=== PATIENT | male | born 1945 | race Caucasian/White ===

== ENCOUNTER 2016-10-22 18:57 | Emergency (ER) | payer OTHER ==
--- NOTE | 2016-10-22 19:23 | EDM.PDOC ---
ED HPI GENERAL MEDICAL PROBLEM - General Chief Complaint: Chest Pain Stated Complaint: PT HAS HIGH BLOOD PRESSURE AND CHEST PAINS Time Seen by Provider: 10/22/16 19:20 - History of Present Illness INITIAL COMMENTS - FREE TEXT/NARRATIVE: HISTORY AND PHYSICAL: History of present illness: Patient 70-year-old white male presents with a concern of blood pressure check he is a and called the [place] with regard to blood pressure that was low 100 systolic with diastolic of 50-60. He states he occasionally has chest pain he is not worried about that at this time and all he wants his blood pressure rechecked. Review of systems: As per history of present illness and below otherwise all systems reviewed and negative. Past medical history: As per history of present illness and as reviewed below otherwise noncontributory. Surgical history: As per history of present illness and as reviewed below otherwise noncontributory. Social history: No reported history of drug or alcohol abuse. Family history: As per history of present illness and as reviewed below otherwise noncontributory. Physical exam: HEENT: Atraumatic, normocephalic, pupils reactive, negative for conjunctival pallor or scleral icterus, mucous membranes moist, throat clear, neck supple, nontender, trachea midline. Lungs: Clear to auscultation, breath sounds equal bilaterally, chest nontender. Heart: S1S2, regular, negative for clicks, rubs, or JVD. Abdomen: Soft, nondistended, nontender. Negative for masses or hepatosplenomegaly. Negative for costovertebral tenderness. Pelvis: Stable nontender. Genitourinary: Deferred. Rectal: Deferred. Extremities: Atraumatic, negative for cords or calf pain. Neurovascular unremarkable. Neuro: Awake, alert, oriented. Cranial nerves II through XII unremarkable. Cerebellum unremarkable. Motor and sensory unremarkable throughout. Exam nonfocal. Diagnostics: Deferred by patient Therapeutics: None Impression: #1 medical screening exam Definitive disposition and diagnosis as appropriate pending reevaluation and review of above. chest Pain Score (Numeric/FACES): 3 - Related Data Allergies Allergy/AdvReac Type Severity Reaction Status Date / Time No Known Allergies Allergy Verified 08/02/14 17:46 Home Meds: Home Meds High Blood Pressure 10/22/16 [History] High Cholesterol 10/22/16 [History] Lower Heart Rate 10/22/16 [History] Past Medical History HEENT History: Reports: None Cardiovascular History: Reports: High Cholesterol, Hypertension, [place], Stents Respiratory History: Reports: Other (See Below) Other Respiratory History: polyp in lung Gastrointestinal History: Reports: None Genitourinary History: Reports: None Musculoskeletal History: Reports: Back Pain, Chronic Psychiatric History: Reports: None Endocrine/Metabolic History: Reports: None - Infectious Disease History Infectious Disease History: Reports: Chicken Pox, Measles, Mumps - Past Surgical History Male Surgical History: Reports: None Neurological Surgical History: Reports: Other (See Below) Other Neurological Surgeries/Procedures: 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 ED EXAM, GENERAL - Physical Exam Exam: See Below (See dictation) Course - Vital Signs Last Recorded V/S: Last Vital Signs Temp 36.8 C 10/22/16 19:02 Pulse 83 10/22/16 19:02 Resp 18 10/22/16 19:02 BP 154/64 H 10/22/16 19:02 Pulse Ox 96 10/22/16 19:02 Departure - Departure Time of Disposition: 19:22 Disposition: Home, Self-Care 01 Condition: Good Clinical Impression: Encounter for medical screening examination - Discharge Information Forms: ED Department Discharge Additional Instructions: The following information is given to patients seen in the emergency department who are being discharged to home. This information is to outline your options for follow-up care. We provide all patients seen in our emergency department with a follow-up referral. The need for follow-up, as well as the timing and circumstances, are variable depending upon the specifics of your emergency department visit. If you don't have a primary care physician on staff, we will provide you with a referral. We always advise you to contact your personal physician following an emergency department visit to inform them of the circumstance of the visit and for follow-up with them and/or the need for any referrals to a consulting specialist. The emergency department will also refer you to a specialist when appropriate. This referral assures that you have the opportunity for followup care with a specialist. All of these measure are taken in an effort to provide you with optimal care, which includes your followup. Under all circumstances we always encourage you to contact your private physician who remains a resource for coordinating your care. When calling for followup care, please make the office aware that this follow-up is from your recent emergency room visit. If for any reason you are refused follow-up, please contact the [facility] emergency department at and asked to speak to the emergency department charge nurse. Follow-up primary medical doctor 1-2 days return as needed as discussed
[2016-10-23 03:44] VITALS: BP 118/56
== END 2016-10-22 19:38 | disposition home or self-care (01) ==
LOC: MW.ED 18:57
DX: Z00.00 Encounter for general adult medical examination without abnormal findings (principal); I10 Essential (primary) hypertension; E78.00 Pure hypercholesterolemia, unspecified; I25.2 Old myocardial infarction; F17.210 Nicotine dependence, cigarettes, uncomplicated; Z95.5 Presence of coronary angioplasty implant and graft; Z98.890 Other specified postprocedural states
CPT/HCPCS: 93005; 99282; 99284-25

== ENCOUNTER 2017-10-06 13:46 | Emergency (ER) | payer OTHER ==
[~2017-10-06 13:46] MED LIST: Nitroglycerin 0.4 MG Tab.SL SL ONE
[2017-10-06] MEDS ORDERED: Sodium Chloride 0.9% 1,000 ML IV ONE (13:54)
--- NOTE | 2017-10-06 13:55 | EDM.PDOC ---
ED HPI GENERAL MEDICAL PROBLEM - General Stated Complaint: AMB Time Seen by Provider: 10/06/17 13:46 Source of Information: Reports: Patient, EMS History Limitations: Reports: No Limitations - History of Present Illness INITIAL COMMENTS - FREE TEXT/NARRATIVE: HISTORY AND PHYSICAL: History of present illness: [Comes to the emergency room via EMS from OR complaining of chest pain. Symptoms started earlier this morning while he was mowing the lawn, around 11 AM. Describes as a constant pressure in the middle of his chest and radiates into his left neck. Since the onset of pain, He took a bath and took a nap prior to presenting at the OR clinic for evaluation of his pain. He was then referred to the emergency room for evaluation. Denies shortness of breath or difficulty breathing. Took one baby aspirin at home, and received 324mg po on the way to ER, as well as 1 spray of nitro. His pain is completely resolved while he is in the metered emergency room. No recent illness or infection. No fever or chills, earaches runny nose and sore throat. No abdominal pain nausea or vomiting. No Swelling to his feet or lower legs. Denies numbness and tingling. No muscle aches or joint pain. History of CAD w/ stents x3 in 2009 in [place]. Smokes 1-1-1/2 packs of cigarettes per day. ] Review of systems: As per history of present illness and below otherwise all systems reviewed and negative. Past medical history: As per history of present illness and as reviewed below otherwise noncontributory. Surgical history: As per history of present illness and as reviewed below otherwise noncontributory. Social history: No reported history of drug or alcohol abuse. Family history: As per history of present illness and as reviewed below otherwise noncontributory. Physical exam: General: WDWN, frail elderly male in NAD. Speaks in full sentences w/o difficulty. HEENT: Atraumatic, normocephalic. Oral mucous membranes are pink and moist. Neck is supple, no lymphadenopathy. Lungs: Clear to auscultation, breath sounds equal bilaterally. Heart: S1S2, regular, negative for clicks, rubs, or JVD. Abdomen: Sounds are normoactive throughout. Soft, nondistended, nontender. Negative for masses, guarding or rebound. Pelvis: Stable nontender. Genitourinary: Deferred. Rectal: Deferred. Extremities: Atraumatic, negative for cords or calf pain. Neurovascular unremarkable. Neuro: Awake, alert, oriented. Motor and sensory unremarkable throughout. Exam nonfocal. Diagnostics: [CBC, CMP, PT/INR, troponin, EKG, chest x-ray, UA] Therapeutics: [1 L at 500 ML's, 1 g Nitropaste, Lovenox 60 mg subcutaneous] Impression: [NSTEMI ACS unstable angina] Plan: [EKG shows inverted T waves, Troponin 0.170, CBC is unremarkable. Normal kidney and liver function. Otherwise, normal CMP. This is discussed with Dr. He at [facility]. He agrees to accept patient in transfer. ALS ground is arranged. Is given Lovenox and 1 inch of Nitropaste prior to transfer. The patient's in agreement with today's treatment plan and transfer. All of his questions are answered and concerns are addressed.] Definitive disposition and diagnosis as appropriate pending reevaluation and review of above. Bilateral Chest Pain Score (Numeric/FACES): 0 - Related Data Allergies Allergy/AdvReac Type Severity Reaction Status Date / Time No Known Allergies Allergy Verified 10/06/17 14:00 Home Meds: Home Meds High Blood Pressure 10/22/16 [History] High Cholesterol 10/22/16 [History] Lower Heart Rate 10/22/16 [History] Past Medical History HEENT History: Reports: None Cardiovascular History: Reports: High Cholesterol, Hypertension, [place], Stents Respiratory History: Reports: Other (See Below) Other Respiratory History: polyp in lung Gastrointestinal History: Reports: None Genitourinary History: Reports: None Musculoskeletal History: Reports: Back Pain, Chronic Psychiatric History: Reports: None Endocrine/Metabolic History: Reports: None - Infectious Disease History Infectious Disease History: Reports: Chicken Pox, Measles, Mumps - Past Surgical History Male Surgical History: Reports: None Neurological Surgical History: Reports: Other (See Below) Other Neurological Surgeries/Procedures: 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 ED EXAM, GENERAL - Physical Exam Exam: See Below Course - Vital Signs Last Recorded V/S: Last Vital Signs Temp 97.7 F 10/06/17 15:00 Pulse 55 L 10/06/17 15:00 Resp 18 10/06/17 15:00 BP 122/60 10/06/17 15:00 Pulse Ox 100 10/06/17 15:00 - Orders/Labs/Meds Orders: Active Orders 24 hr Category Date Time Status EKG 12 Lead [EKG Documentation Completion] [RC] STAT Care 10/06/17 14:55 Active EKG Documentation Completion [RC] STAT Care 10/06/17 13:48 Active UA W/MICROSCOPIC [URIN] Stat Lab 10/06/17 15:13 Ordered Sodium Chloride 0.9% [Normal Saline] 1,000 ml Med 10/06/17 13:54 Active IV STAT Medication Orders Sodium Chloride (Normal Saline) 1,000 mls @ 500 mls/hr IV STAT ONE Stop: 10/06/17 15:53 Last Admin: 10/06/17 14:08 Dose: 500 mls/hr Labs: Laboratory Tests 10/06/17 10/06/17 10/06/17 Range/Units 14:08 14:08 14:08 WBC 6.82 (4.0-11.0) K/uL RBC 4.19 L (4.50-5.90) M/uL Hgb 13.9 (13.0-17.0) g/dL Hct 40.4 (38.0-50.0) % MCV 96.4 (80.0-98.0) fL MCH 33.2 H (27.0-32.0) pg MCHC 34.4 (31.0-37.0) g/dL RDW Std Deviation 47.3 (28.0-62.0) fl RDW Coeff of Geoffrey 13 (11.0-15.0) % Plt Count 190 (150-400) K/uL MPV 10.10 (7.40-12.00) fL Neut % (Auto) 61.1 (48.0-80.0) % Lymph % (Auto) 24.0 (16.0-40.0) % Clay % (Auto) 9.2 (0.0-15.0) % Eos % (Auto) 5.3 (0.0-7.0) % Baso % (Auto) 0.4 (0.0-1.5) % Neut # (Auto) 4.2 (1.4-5.7) K/uL Lymph # (Auto) 1.6 (0.6-2.4) K/uL Clay # (Auto) 0.6 (0.0-0.8) K/uL Eos # (Auto) 0.4 (0.0-0.7) K/uL Baso # (Auto) 0.0 (0.0-0.1) K/uL Nucleated RBC % 0.0 /100WBC Nucleated RBCs # 0 K/uL INR 1.01 Sodium 139 (136-148) mmol/L Potassium 4.5 (3.5-5.1) mmol/L Chloride 105 (98-107) mmol/L Carbon Dioxide 27.6 (21.0-32.0) mmol/L BUN 24 H (7.0-18.0) mg/dL Creatinine 1.6 H (0.8-1.3) mg/dL Est Cr Clr Drug Dosing 29.81 mL/min Estimated GFR (MDRD) 42.6 ml/min Glucose 135 H (74-106) mg/dL Calcium 9.0 (8.5-10.1) mg/dL Total Bilirubin 0.4 (0.2-1.0) mg/dL AST 25 (15-37) IU/L ALT 24 (14-63) IU/L Alkaline Phosphatase 82 (46-116) U/L Troponin I 0.170 H* (0.000-0.056) ng/mL Total Protein 7.0 (6.4-8.2) g/dL Albumin 3.1 L (3.4-5.0) g/dL Globulin 3.9 H (2.0-3.5) g/dL Albumin/Globulin Ratio 0.8 L (1.3-2.8) Urine Color Urine Appearance Urine pH (5.0-8.0) Ur Specific English (1.001-1.035) Urine Protein (NEGATIVE) mg/dL Urine Glucose (UA) (NEGATIVE) mg/dL Urine Ketones (NEGATIVE) mg/dL Urine Occult Blood (NEGATIVE) Urine Nitrite (NEGATIVE) Urine Bilirubin (NEGATIVE) Urine Urobilinogen (<2.0) EU/dL Ur Leukocyte Esterase (NEGATIVE) Urine RBC (0-2/HPF) Urine WBC (0-5/HPF) Ur Epithelial Cells (NONE-FEW) Urine Bacteria (NEGATIVE) 10/06/17 Range/Units 15:13 WBC (4.0-11.0) K/uL RBC (4.50-5.90) M/uL Hgb (13.0-17.0) g/dL Hct (38.0-50.0) % MCV (80.0-98.0) fL MCH (27.0-32.0) pg MCHC (31.0-37.0) g/dL RDW Std Deviation (28.0-62.0) fl RDW Coeff of Geoffrey (11.0-15.0) % Plt Count (150-400) K/uL MPV (7.40-12.00) fL Neut % (Auto) (48.0-80.0) % Lymph % (Auto) (16.0-40.0) % Clay % (Auto) (0.0-15.0) % Eos % (Auto) (0.0-7.0) % Baso % (Auto) (0.0-1.5) % Neut # (Auto) (1.4-5.7) K/uL Lymph # (Auto) (0.6-2.4) K/uL Clay # (Auto) (0.0-0.8) K/uL Eos # (Auto) (0.0-0.7) K/uL Baso # (Auto) (0.0-0.1) K/uL Nucleated RBC % /100WBC Nucleated RBCs # K/uL INR Sodium (136-148) mmol/L Potassium (3.5-5.1) mmol/L Chloride (98-107) mmol/L Carbon Dioxide (21.0-32.0) mmol/L BUN (7.0-18.0) mg/dL Creatinine (0.8-1.3) mg/dL Est Cr Clr Drug Dosing mL/min Estimated GFR (MDRD) ml/min Glucose (74-106) mg/dL Calcium (8.5-10.1) mg/dL Total Bilirubin (0.2-1.0) mg/dL AST (15-37) IU/L ALT (14-63) IU/L Alkaline Phosphatase (46-116) U/L Troponin I (0.000-0.056) ng/mL Total Protein (6.4-8.2) g/dL Albumin (3.4-5.0) g/dL Globulin (2.0-3.5) g/dL Albumin/Globulin Ratio (1.3-2.8) Urine Color YELLOW Urine Appearance CLEAR Urine pH 6.0 (5.0-8.0) Ur Specific English 1.020 (1.001-1.035) Urine Protein NEGATIVE (NEGATIVE) mg/dL Urine Glucose (UA) NEGATIVE (NEGATIVE) mg/dL Urine Ketones NEGATIVE (NEGATIVE) mg/dL Urine Occult Blood NEGATIVE (NEGATIVE) Urine Nitrite NEGATIVE (NEGATIVE) Urine Bilirubin NEGATIVE (NEGATIVE) Urine Urobilinogen 0.2 (<2.0) EU/dL Ur Leukocyte Esterase NEGATIVE (NEGATIVE) Urine RBC 0-1 (0-2/HPF) Urine WBC 0-1 (0-5/HPF) Ur Epithelial Cells RARE (NONE-FEW) Urine Bacteria RARE (NEGATIVE) Meds: Medications Generic Name Dose Route Start Last Admin Trade Name Freq PRN Reason Stop Dose Admin Sodium Chloride 1,000 mls @ 500 mls/hr 10/06/17 13:54 10/06/17 14:08 Normal Saline IV 10/06/17 15:53 500 mls/hr STAT ONE Administration Discontinued Medications Generic Name Dose Route Start Last Admin Trade Name Freq PRN Reason Stop Dose Admin Enoxaparin Sodium 60 mg 10/06/17 15:30 10/06/17 15:25 Lovenox SUBCUT 10/06/17 15:31 60 mg ONETIME ONE Administration Nitroglycerin 0.4 mg 10/06/17 13:46 10/06/17 13:55 Nitrostat SL 10/06/17 13:47 Not Given ONETIME ONE Nitroglycerin 1 gm 10/06/17 15:16 10/06/17 15:23 Nitro-Bid 2% TOP 10/06/17 15:17 1 gm ONETIME ONE Administration Departure - Departure Time of Disposition: 15:55 Disposition: DC/Tfer to Acute Hospital 02 Reason for Transfer *Q: Other Condition: Good Clinical Impression: NSTEMI (non-ST elevated myocardial infarction), Acute coronary syndrome - My Orders Last 24 Hours: My Active Orders 10/06/17 13:48 EKG Documentation Completion [RC] STAT 10/06/17 13:54 Sodium Chloride 0.9% [Normal Saline] 1,000 ml IV STAT 10/06/17 14:55 EKG 12 Lead [EKG Documentation Completion] [RC] STAT 10/06/17 15:13 UA W/MICROSCOPIC [URIN] Stat - Assessment/Plan Last 24 Hours: My Active Orders 10/06/17 13:48 EKG Documentation Completion [RC] STAT 10/06/17 13:54 Sodium Chloride 0.9% [Normal Saline] 1,000 ml IV STAT 10/06/17 14:55 EKG 12 Lead [EKG Documentation Completion] [RC] STAT 10/06/17 15:13 UA W/MICROSCOPIC [URIN] Stat
--- NOTE | 2017-10-06 14:44 | CR ---
EXAMINATION: Portable chest radiograph. HISTORY: Chest pain. FINDINGS: The trachea is midline. The cardiomediastinal silhouette is within normal limits. No pulmonary infilt rates, effusions or pneumothorax. Moderate hyperinflation and mild interstitial prominence. Osseous structures appear unremarkable. IMPRESSION: No acute cardiopulmonary process.
[2017-10-06 15:01] VITALS: BP 122/60
[2017-10-06] MEDS ORDERED: Enoxaparin 60 MG/0.6 ML Syringe SUBCUT ONE (15:13)
[2017-10-06] MEDS ORDERED: Nitroglycerin 2% Oint 1 GM UD Packet TOP ONE (15:16)
[2017-10-06] MEDS ORDERED: Enoxaparin 100 MG/1 ML Syringe SUBCUT ONE (15:30)
== END 2017-10-06 15:57 ==
LOC: MW.ED 13:46
DX: I21.4 Non-ST elevation (NSTEMI) myocardial infarction (principal); I24.9 Acute ischemic heart disease, unspecified; I20.0 Unstable angina; I25.2 Old myocardial infarction
CPT/HCPCS: 36415; 71045; 80053; 81001; 84484; 85025; 85610; 93005; 96360; 96361; 99285; A9270; J1650; J7040

== ENCOUNTER 2018-09-05 16:27 | Observation (INO) | payer OTHER ==
--- NOTE | 2018-09-05 16:44 | EDM.PDOC ---
ED HPI GENERAL MEDICAL PROBLEM - General Stated Complaint: DIZZY Time Seen by Provider: 09/05/18 16:40 Source of Information: Reports: Patient History Limitations: Reports: No Limitations - History of Present Illness INITIAL COMMENTS - FREE TEXT/NARRATIVE: HISTORY AND PHYSICAL: History of present illness: Patient is a 72-year-old male who presents to the emergency room today with complaints of an terminate dizziness since 9 AM. He states this morning when he was bending over to tie his shoe he noticed that he felt the room was spinning. He states any time he had to turn his head down or bend over he became very dizzy. Sitting still and resting, the dizziness would resolve. States with ambulation he is fine as long as he doesn't have to look down work or bend over. Patient denies any fever, chills, headache, change in vision, syncope or near syncope. Denies any chest pain, back pain, shortness of breath or cough. Denies any abdominal pain, nausea, vomiting, diarrhea, constipation or dysuria. Has not noted any blood in urine or stool. Patient has been eating and drinking appropriately. Patient has a past medical history of high blood pressure, high cholesterol, coronary artery disease with stent placement x 5. Current daily 1ppd smoker. He receives his health care through the [place]. Review of systems: As per history of present illness and below otherwise all systems reviewed and negative. Past medical history: As per history of present illness and as reviewed below otherwise noncontributory. Surgical history: As per history of present illness and as reviewed below otherwise noncontributory. Social history: See social history for further information Family history: As per history of present illness and as reviewed below otherwise noncontributory. Physical exam: General: Well-developed and well-nourished 72-year-old male. Alert and oriented. Nontoxic appearing and in no acute distress. HEENT: Atraumatic, normocephalic, pupils equal and reactive bilaterally, negative for conjunctival pallor or scleral icterus, mucous membranes moist, TMs normal bilaterally, throat clear, neck supple, nontender, trachea midline. No drooling or trismus noted. No meningeal signs. No hot potato voice noted. Lungs: Clear to auscultation, breath sounds equal bilaterally, chest nontender. Heart: S1S2, regular rate and rhythm without overt murmur Abdomen: Soft, nondistended, nontender. Negative for masses or hepatosplenomegaly. Negative for costovertebral tenderness. Pelvis: Stable nontender. Genitourinary: Deferred. Rectal: Deferred. Skin: Intact, warm, dry. No lesions or rashes noted. Extremities: Atraumatic, moves all extremities per self without difficulty or deficits, negative for cords or calf pain. Neurovascular unremarkable. Neuro: Awake, alert, oriented. Cranial nerves II through XII unremarkable. Cerebellum unremarkable. Motor and sensory unremarkable throughout. Exam nonfocal. Notes: EKG shows a LBBB; no previously seen on EKG from 2018. Lab work is unremarkable , with exception of BUN/creat slightly elevated. Imagining is unremarkable. Vital signs remain stable. Patient reports he still does have some dizziness. Dr. Vargas was consult did on this patient will keep for observation admission. With telemetry. Patient is aware and agreeable Diagnostics: CBC, CMP, UA, troponin, EKG, orthostatic vital signs, head CT, one view chest Therapeutics: Normal saline Impression: Dizziness LBBB, new Plan: Observation admission Definitive disposition and diagnosis as appropriate pending reevaluation and review of above. - Related Data Allergies Allergy/AdvReac Type Severity Reaction Status Date / Time No Known Allergies Allergy Verified 09/05/18 16:37 Home Meds: Home Meds High Blood Pressure 10/22/16 [History] High Cholesterol 10/22/16 [History] Lower Heart Rate 10/22/16 [History] Past Medical History HEENT History: Reports: None Cardiovascular History: Reports: High Cholesterol, Hypertension, [place], Stents, Other (See Below) Other Cardiovascular History: nuclear stress test Respiratory History: Reports: Other (See Below) Other Respiratory History: polyp in lung Gastrointestinal History: Reports: None Genitourinary History: Reports: None Musculoskeletal History: Reports: Back Pain, Chronic Psychiatric History: Reports: None Endocrine/Metabolic History: Reports: None - Infectious Disease History Infectious Disease History: Reports: Chicken Pox, Measles, Mumps - Past Surgical History Neurological Surgical History: Reports: Other (See Below) Other Neurological Surgeries/Procedures: 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 ED EXAM, GENERAL - Physical Exam Exam: See Below (See dictation) Course - Vital Signs Last Recorded V/S: Last Vital Signs Temp 97.5 F 09/05/18 16:37 Pulse 74 09/05/18 17:54 Resp 18 09/05/18 17:54 BP 144/88 H 09/05/18 17:54 Pulse Ox 97 09/05/18 17:54 Orthostatic Blood Pressure [ 154/81 Standing] Orthostatic Blood Pressure [ 158/82 Sitting] Orthostatic Blood Pressure [ 171/81 Supine] - Orders/Labs/Meds Orders: Active Orders 24 hr Category Date Time Status EKG Documentation Completion [RC] STAT Care 09/05/18 16:31 Active Orthostatic Vital Signs [RC] ASDIRECTED Care 09/05/18 16:31 Active Head wo Cont [CT] Stat Exams 09/05/18 16:31 Taken Sodium Chloride 0.9% [Normal Saline] 1,000 ml Med 09/05/18 17:26 Active IV STAT Medication Orders Sodium Chloride (Normal Saline) 1,000 mls @ 999 mls/hr IV STAT ONE Stop: 09/05/18 18:26 Last Admin: 09/05/18 17:50 Dose: 999 mls/hr Labs: Laboratory Tests 09/05/18 09/05/18 09/05/18 Range/Units 16:35 16:35 17:30 WBC 7.47 (4.0-11.0) K/uL RBC 4.09 L (4.50-5.90) M/uL Hgb 13.7 (13.0-17.0) g/dL Hct 40.8 (38.0-50.0) % MCV 99.8 H (80.0-98.0) fL MCH 33.5 H (27.0-32.0) pg MCHC 33.6 (31.0-37.0) g/dL RDW Std Deviation 50.2 (28.0-62.0) fl RDW Coeff of Geoffrey 14 (11.0-15.0) % Plt Count 209 (150-400) K/uL MPV 10.30 (7.40-12.00) fL Neut % (Auto) 61.9 (48.0-80.0) % Lymph % (Auto) 23.8 (16.0-40.0) % [place] % (Auto) 10.2 (0.0-15.0) % Eos % (Auto) 3.7 (0.0-7.0) % Baso % (Auto) 0.4 (0.0-1.5) % Neut # (Auto) 4.6 (1.4-5.7) K/uL Lymph # (Auto) 1.8 (0.6-2.4) K/uL [place] # (Auto) 0.8 (0.0-0.8) K/uL Eos # (Auto) 0.3 (0.0-0.7) K/uL Baso # (Auto) 0.0 (0.0-0.1) K/uL Nucleated RBC % 0.0 /100WBC Nucleated RBCs # 0 K/uL Sodium 140 (136-148) mmol/L Potassium 3.9 (3.5-5.1) mmol/L Chloride 103 (98-107) mmol/L Carbon Dioxide 25.8 (21.0-32.0) mmol/L BUN 24 H (7.0-18.0) mg/dL Creatinine 1.6 H (0.8-1.3) mg/dL Est Cr Clr Drug Dosing 30.40 mL/min Estimated GFR (MDRD) 42.5 ml/min Glucose 95 (74-106) mg/dL Calcium 9.1 (8.5-10.1) mg/dL Total Bilirubin 0.4 (0.2-1.0) mg/dL AST 19 (15-37) IU/L ALT 22 (14-63) IU/L Alkaline Phosphatase 141 H (46-116) U/L Troponin I < 0.050 (0.000-0.056) ng/mL Total Protein 7.6 (6.4-8.2) g/dL Albumin 3.2 L (3.4-5.0) g/dL Globulin 4.4 H (2.6-4.0) g/dL Albumin/Globulin Ratio 0.7 L (0.9-1.6) Urine Color YELLOW Urine Appearance CLEAR Urine pH 5.0 (5.0-8.0) Ur Specific [place] 1.010 (1.001-1.035) Urine Protein NEGATIVE (NEGATIVE) mg/dL Urine Glucose (UA) NEGATIVE (NEGATIVE) mg/dL Urine Ketones NEGATIVE (NEGATIVE) mg/dL Urine Occult Blood NEGATIVE (NEGATIVE) Urine Nitrite NEGATIVE (NEGATIVE) Urine Bilirubin NEGATIVE (NEGATIVE) Urine Urobilinogen 0.2 (<2.0) EU/dL Ur Leukocyte Esterase NEGATIVE (NEGATIVE) Meds: Medications Generic Name Dose Route Start Last Admin Trade Name Archie PRN Reason Stop Dose Admin Sodium Chloride 1,000 mls @ 999 mls/hr 09/05/18 17:26 09/05/18 17:50 Normal Saline IV 09/05/18 18:26 999 mls/hr STAT ONE Administration Departure - Departure Time of Disposition: 18:07 Disposition: Refer to Observation Clinical Impression: Dizziness, Left bundle branch block - Discharge Information Referrals: PCP,Unknown [Primary Care Provider] - - My Orders Last 24 Hours: My Active Orders 09/05/18 16:31 EKG Documentation Completion [RC] STAT Orthostatic Vital Signs [RC] ASDIRECTED Head wo Cont [CT] Stat 09/05/18 17:26 Sodium Chloride 0.9% [Normal Saline] 1,000 ml IV STAT - Assessment/Plan Last 24 Hours: My Active Orders 09/05/18 16:31 EKG Documentation Completion [RC] STAT Orthostatic Vital Signs [RC] ASDIRECTED Head wo Cont [CT] Stat 09/05/18 17:26 Sodium Chloride 0.9% [Normal Saline] 1,000 ml IV STAT
[2018-09-05 17:18] LABS: CHLORIDE,CL 103 mmol/L (98-107); SODIUM,NA 140 mmol/L (136-148)
[2018-09-05] MEDS ORDERED: Sodium Chloride 0.9% 1,000 ML IV ONE (17:26)
--- NOTE | 2018-09-05 17:46 | CR ---
INDICATION: Dizziness TECHNIQUE: Chest 1 view. COMPARISON: None available FINDINGS: The heart is size. There is atherosclerotic calcification of the aortic arch. The pulmonary vasculature is within normal limits. The lungs are clear. IMPRESSION: Unremarkable chest. Dictated by Thania Gerber MD @ 09/05/2018 5:44:37 PM Dictated by: Thania Gerber MD @ 09/05/2018 17:44:42 (Electronically Signed)
--- NOTE | 2018-09-05 18:11 | CT ---
INDICATION: DIZZINESS STARTING THIS AM TECHNIQUE: CT Head without i.v. contrast. COMPARISON: None FINDINGS: CSF spaces: Within normal limits for age. Brain parenchyma: Mild diffuse cortical atrophy is noted. There are low attenuation white matter changes, likely due to chronic microvascular disease. The brain parenchyma is normal in appearance with preservation of the meléndez-white matter junction. No sign of mass, hemorrhage, or midline shift seen. Calcified plaque involving the bilateral intracranial internal carotid arteries. Prominence of the left P1 segment, series 2 L1 image 16. No dense MCA sign. Skull base and calvarium: The visualized paranasal sinuses are well aerated. The mastoid air cells are clear. The visualized orbits are grossly unremarkable. No skull fractures are seen. IMPRESSION: 1. No evidence of acute infarction, intracranial hemorrhage, or mass effect seen. 2. Findings suspicious for possible left A1 segment intracranial aneurysm on this noncontrast study. Recommend correlation with contrast-enhanced CTA of the [place] of [place]. Dictated by Juan Carlos Aldana MD @ 09/05/2018 6:08:44 PM Please note that all CT scans at this facility use dose modulation, iterative reconstruction, and/or weight-based dosing when appropriate to reduce radiation dose to as low as reasonably achievable. Dictated by: Juan Carlos Aldana MD @ 09/05/2018 18:08:49 (Electronically Signed)
--- NOTE | 2018-09-05 18:44 | PCM.HP ---
H&P History of Present Illness - General Date of Service: 09/05/18 Admit Problem/Dx: Admission Diagnosis/Problem Admission Diagnosis/Problem Dizziness - History of Present Illness Initial Comments - Free Text/Narative: 72 yo male who presents with one day of dizziness. Patient reports whenever he bends over or moves his head the room starts to spin. He denies any shortness of breath, chest pain or lightheadedness. He has similar problem last month but not as severe. He was evaluated in the ED and noted to have a left bundle branch block on EKG so he was referred for admission. - Related Data Allergies/Adverse Reactions: Allergies Allergy/AdvReac Type Severity Reaction Status Date / Time No Known Allergies Allergy Verified 09/05/18 16:37 Home Medications: Home Meds Aspirin [Low Dose Aspirin EC] 1 tab PO DAILY 09/05/18 [History] Clopidogrel [Plavix] 75 mg PO DAILY 09/05/18 [History] Lisinopril 1 tab PO DAILY 09/05/18 [History] Metoprolol Succinate [Toprol XL 50mg] 0.5 tab.sa PO DAILY 09/05/18 [History] Omeprazole 1 cap.ec PO ASDIRECTED 09/05/18 [History] atorvaSTATin Calcium [Atorvastatin Calcium] 1 tab PO DAILY 09/05/18 [History] Past Medical History HEENT History: Reports: None Cardiovascular History: Reports: High Cholesterol, Hypertension, [place], Stents, Other (See Below) Other Cardiovascular History: nuclear stress test Respiratory History: Reports: Other (See Below) Other Respiratory History: polyp in lung Gastrointestinal History: Reports: None Genitourinary History: Reports: None Musculoskeletal History: Reports: Back Pain, Chronic Psychiatric History: Reports: None Endocrine/Metabolic History: Reports: None - Infectious Disease History Infectious Disease History: Reports: Chicken Pox, Measles, Mumps - Past Surgical History Neurological Surgical History: Reports: Other (See Below) Other Neurological Surgeries/Procedures: 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 Exam - Exam Exam: See Below - Vital Signs Vital Signs: Last Vital Signs Temp 36.4 C 09/05/18 16:37 Pulse 74 09/05/18 17:54 Resp 18 09/05/18 17:54 BP 144/88 H 09/05/18 17:54 Pulse Ox 97 09/05/18 17:54 Orthostatic Blood Pressure [ 154/81 Standing] Orthostatic Blood Pressure [ 158/82 Sitting] Orthostatic Blood Pressure [ 171/81 Supine] Weight: 53.07 kg - Exam General: Alert, Oriented HEENT: Mucosa Moist & [place] Lungs: Clear to Auscultation, Normal Respiratory Effort Cardiovascular: Regular Rate, Regular Rhythm GI/Abdominal Exam: Normal Bowel Sounds, Soft, Non-Tender Extremities: Non-Tender, No Pedal Edema Skin: Warm, Dry, Intact Neurological: Cranial Nerves Intact, Strength Equal Bilateral (stead with standing with eyes closed, able to walk forwards and backwards. He gets dizzy with modified hallpike maneovers but no nystagmus), Normal Gait, Normal Speech, Sensation Intact. No: Focal Deficit - Patient Data Lab Results Last 24 hrs: Laboratory Results - last 24 hr 09/05/18 09/05/18 09/05/18 Range/Units 16:35 16:35 17:30 WBC 7.47 (4.0-11.0) K/uL RBC 4.09 L (4.50-5.90) M/uL Hgb 13.7 (13.0-17.0) g/dL Hct 40.8 (38.0-50.0) % MCV 99.8 H (80.0-98.0) fL MCH 33.5 H (27.0-32.0) pg MCHC 33.6 (31.0-37.0) g/dL RDW Std Deviation 50.2 (28.0-62.0) fl RDW Coeff of Geoffrey 14 (11.0-15.0) % Plt Count 209 (150-400) K/uL MPV 10.30 (7.40-12.00) fL Neut % (Auto) 61.9 (48.0-80.0) % Lymph % (Auto) 23.8 (16.0-40.0) % [place] % (Auto) 10.2 (0.0-15.0) % Eos % (Auto) 3.7 (0.0-7.0) % Baso % (Auto) 0.4 (0.0-1.5) % Neut # (Auto) 4.6 (1.4-5.7) K/uL Lymph # (Auto) 1.8 (0.6-2.4) K/uL [place] # (Auto) 0.8 (0.0-0.8) K/uL Eos # (Auto) 0.3 (0.0-0.7) K/uL Baso # (Auto) 0.0 (0.0-0.1) K/uL Nucleated RBC % 0.0 /100WBC Nucleated RBCs # 0 K/uL Sodium 140 (136-148) mmol/L Potassium 3.9 (3.5-5.1) mmol/L Chloride 103 (98-107) mmol/L Carbon Dioxide 25.8 (21.0-32.0) mmol/L BUN 24 H (7.0-18.0) mg/dL Creatinine 1.6 H (0.8-1.3) mg/dL Est Cr Clr Drug Dosing 30.40 mL/min Estimated GFR (MDRD) 42.5 ml/min Glucose 95 (74-106) mg/dL Calcium 9.1 (8.5-10.1) mg/dL Total Bilirubin 0.4 (0.2-1.0) mg/dL AST 19 (15-37) IU/L ALT 22 (14-63) IU/L Alkaline Phosphatase 141 H (46-116) U/L Troponin I < 0.050 (0.000-0.056) ng/mL Total Protein 7.6 (6.4-8.2) g/dL Albumin 3.2 L (3.4-5.0) g/dL Globulin 4.4 H (2.6-4.0) g/dL Albumin/Globulin Ratio 0.7 L (0.9-1.6) Urine Color YELLOW Urine Appearance CLEAR Urine pH 5.0 (5.0-8.0) Ur Specific [place] 1.010 (1.001-1.035) Urine Protein NEGATIVE (NEGATIVE) mg/dL Urine Glucose (UA) NEGATIVE (NEGATIVE) mg/dL Urine Ketones NEGATIVE (NEGATIVE) mg/dL Urine Occult Blood NEGATIVE (NEGATIVE) Urine Nitrite NEGATIVE (NEGATIVE) Urine Bilirubin NEGATIVE (NEGATIVE) Urine Urobilinogen 0.2 (<2.0) EU/dL Ur Leukocyte Esterase NEGATIVE (NEGATIVE) Result Diagrams: 09/05/18 16:35 09/05/18 16:35 Problem List Initiated/Reviewed/Updated: Yes Orders Last 24hrs: Active Orders 24 hr Category Date Time Status Admission Status [Patient Status] [ADT] Stat ADT 09/05/18 18:07 Active Antiembolic Devices [RC] PER UNIT ROUTINE Care 09/05/18 18:39 Ordered EKG Documentation Completion [RC] STAT Care 09/05/18 16:31 Active Orthostatic Vital Signs [RC] ASDIRECTED Care 09/05/18 16:31 Active Oxygen Therapy [RC] PRN Care 09/05/18 18:38 Ordered Up ad Lori [RC] ASDIRECTED Care 09/05/18 18:38 Ordered VTE/DVT Education [RC] PER UNIT ROUTINE Care 09/05/18 18:38 Ordered Vital Signs [RC] Q4H Care 09/05/18 18:38 Ordered Regular Diet [DIET] Diet 09/05/18 Breakfast Ordered Sequential Compression Device [OM.PC] Per Unit Routine Oth 09/05/18 18:38 Ordered Resuscitation Status Routine Resus Stat 09/05/18 18:38 Ordered Assessment/Plan Comment:: 72 yo male who presents with vertigo. We will monitor overnight on telemetry. Addendum: patient left AMA shortly after getting to the floor because he was told he could not smoke in the hospital
[2018-09-05 20:09] VITALS: BP 159/69
== END 2018-09-05 23:00 | disposition left against medical advice (07) ==
LOC: MW.ED 16:27 → MW.MS 18:16
PROVIDERS: ADMIT Internal Medicine; ATTEND Internal Medicine
DX: R42 Dizziness and giddiness (principal); I10 Essential (primary) hypertension; I25.10 Atherosclerotic heart disease of native coronary artery without angina pectoris; I25.2 Old myocardial infarction; E78.00 Pure hypercholesterolemia, unspecified; F17.210 Nicotine dependence, cigarettes, uncomplicated; Z95.5 Presence of coronary angioplasty implant and graft; Z53.21 Procedure and treatment not carried out due to patient leaving prior to being seen by health care provider; Z79.899 Other long term (current) drug therapy
CPT/HCPCS: 36415; 70450; 71045; 80053; 81003; 84484; 85025; 93005; 96360; 99285; G0378; J7040

== ENCOUNTER 2020-01-28 15:52 | Emergency (ER) | payer OTHER ==
[2020-01-28] MEDS ORDERED: Sodium Chloride 0.9% 10 ML Syringe FLUSH PRN (16:39)
[2020-01-28] MEDS ORDERED: Sodium Chloride 0.9% 2.5 ML Syringe FLUSH PRN (16:39)
--- NOTE | 2020-01-28 16:45 | EDM.PDOC ---
ED HPI GENERAL MEDICAL PROBLEM - General Chief Complaint: Headache Stated Complaint: [facility] Time Seen by Provider: 01/28/20 15:54 Source of Information: Reports: Patient History Limitations: Reports: No Limitations - History of Present Illness INITIAL COMMENTS - FREE TEXT/NARRATIVE: 74M PMHx HTN presents referred from the [place]. Patient notes that his BP typically runs in the 130-150s, but at [facility] today was in 190s. They did an EKG and noted a new LBBB prompting them to send him here. No blood drawn. Patient also notes that last night he had a very bad headache. No associated neurologic deficits; denies facial weakness, slurred speech, confusion, changes in vision, one-sided weakness, feeling unsteady, gait abnormality, dizziness. The headache went away last night and no longer has MCCORD. Denies CP, SOB. - Related Data Allergies Allergy/AdvReac Type Severity Reaction Status Date / Time No Known Allergies Allergy Verified 01/28/20 22:38 Home Meds: Home Meds Aspirin [Low Dose Aspirin EC] 81 tab PO DAILY 09/05/18 [History] Clopidogrel [Plavix] 75 mg PO DAILY 09/05/18 [History] Lisinopril 40 mg PO DAILY 09/05/18 [History] Metoprolol Succinate [Toprol XL 50mg] 25 mg PO DAILY 09/05/18 [History] Omeprazole 20 mg PO ASDIRECTED 09/05/18 [History] atorvaSTATin Calcium [Atorvastatin Calcium] 80 mg PO DAILY 09/05/18 [History] Past Medical History HEENT History: Reports: None Cardiovascular History: Reports: High Cholesterol, Hypertension, [place], Stents, Other (See Below) Other Cardiovascular History: nuclear stress test Respiratory History: Reports: Other (See Below) Other Respiratory History: polyp in lung Gastrointestinal History: Reports: None Genitourinary History: Reports: None Musculoskeletal History: Reports: Back Pain, Chronic Neurological History: Reports: None Psychiatric History: Reports: None Endocrine/Metabolic History: Reports: None - Infectious Disease History Infectious Disease History: Reports: Chicken Pox, Measles, Mumps - Past Surgical History Neurological Surgical History: Reports: Other (See Below) Other Neurological Surgeries/Procedures: 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 ED EXAM, GENERAL - Physical Exam Exam: See Below Exam Limited By: No Limitations General Appearance: Alert, WD/WN, No Apparent Distress Eye Exam: Bilateral Eye: EOMI, PERRL Ears: Normal External Exam Nose: Normal Inspection Throat/Mouth: Normal Inspection Head: Atraumatic, Normocephalic Neck: Normal Inspection Respiratory/Chest: No Respiratory Distress Cardiovascular: Normal Peripheral Pulses, Regular Rate, Rhythm, No Edema Extremities: Normal Inspection Neurological: Alert, Oriented, CN II-XII Intact, Normal Cognition, Normal Gait, Normal Reflexes, No Motor/Sensory Deficits Psychiatric: Normal Affect, Normal Mood Skin Exam: Warm, Dry, Intact, Normal Color EKG INTERPRETATION EKG Date: 01/28/20 Time: 16:58 Rhythm: NSR Rate (Beats/Min): 63 [place]: Normal P-Wave: Present QRS: LBBB ST-T: Normal QT: Normal RI/PQ Interval: 150 Comparison: No Change Course - Vital Signs Last Recorded V/S: Last Vital Signs Temp 96.4 F L 01/28/20 16:26 Pulse 89 01/28/20 21:00 Resp 18 01/28/20 21:00 BP 190/90 H 01/28/20 21:00 Pulse Ox 98 01/28/20 21:00 - Orders/Labs/Meds Orders: Active Orders 24 hr Category Date Time Status Saline Lock Insert [OM.PC] Stat Oth 01/28/20 16:39 Ordered Labs: Laboratory Tests 01/28/20 01/28/20 01/28/20 Range/Units 16:50 16:50 16:50 WBC 5.75 (4.0-11.0) K/uL RBC 4.15 L (4.50-5.90) M/uL Hgb 11.6 L (13.0-17.0) g/dL Hct 36.3 L (38.0-50.0) % MCV 87.5 (80.0-98.0) fL MCH 28.0 (27.0-32.0) pg MCHC 32.0 (31.0-37.0) g/dL RDW Std Deviation 54.1 (28.0-62.0) fl RDW Coeff of Geoffrey 17 H (11.0-15.0) % Plt Count 196 (150-400) K/uL MPV 10.30 (7.40-12.00) fL Neut % (Auto) 54.9 (48.0-80.0) % Lymph % (Auto) 27.5 (16.0-40.0) % [place] % (Auto) 12.2 (0.0-15.0) % Eos % (Auto) 4.9 (0.0-7.0) % Baso % (Auto) 0.5 (0.0-1.5) % Neut # (Auto) 3.2 (1.4-5.7) K/uL Lymph # (Auto) 1.6 (0.6-2.4) K/uL [place] # (Auto) 0.7 (0.0-0.8) K/uL Eos # (Auto) 0.3 (0.0-0.7) K/uL Baso # (Auto) 0.0 (0.0-0.1) K/uL Nucleated RBC % 0.0 /100WBC Nucleated RBCs # 0 K/uL Sodium 138 (136-148) mmol/L Potassium 4.4 (3.5-5.1) mmol/L Chloride 104 (98-107) mmol/L Carbon Dioxide 25.3 (21.0-32.0) mmol/L BUN 26 H (7.0-18.0) mg/dL Creatinine 1.6 H (0.8-1.3) mg/dL Est Cr Clr Drug Dosing 30.56 mL/min Estimated GFR (MDRD) 42.2 ml/min Glucose 87 (74-106) mg/dL Calcium 8.8 (8.5-10.1) mg/dL Magnesium 2.1 (1.8-2.4) mg/dL Total Bilirubin 0.3 (0.2-1.0) mg/dL AST 16 (15-37) IU/L ALT 24 (14-63) IU/L Alkaline Phosphatase 102 (46-116) U/L Troponin I < 0.050 (0.000-0.056) ng/mL B-Natriuretic Peptide 338 H (<100) PG/ML Total Protein 7.1 (6.4-8.2) g/dL Albumin 3.0 L (3.4-5.0) g/dL Globulin 4.1 H (2.6-4.0) g/dL Albumin/Globulin Ratio 0.7 L (0.9-1.6) Meds: Medications Discontinued Medications Generic Name Dose Route Start Last Admin Trade Name Hectorq PRN Reason Stop Dose Admin Sodium Chloride 500 mls @ 999 mls/hr 01/28/20 18:15 01/28/20 18:27 Normal Saline IV 999 mls/hr .BOLUS CASSIE Administration Iopamidol 100 ml 01/28/20 18:54 01/28/20 18:55 Isovue Multipack-370 (76%) IVPUSH 01/28/20 18:55 100 ml ONETIME ONE Administration Sodium Chloride 10 ml 01/28/20 16:39 01/28/20 17:28 Saline Flush FLUSH 10 ml ASDIRECTED PRN Administration Keep Vein Open Sodium Chloride 2.5 ml 01/28/20 16:39 01/28/20 17:28 Saline Flush FLUSH 2.5 ml ASDIRECTED PRN Administration Keep Vein Open - Re-Assessments/Exams Free Text/Narrative Re-Assessment/Exam: 01/28/20 16:44 Will get labs, EKG, head CT. [facility] and although they told patient the LBBB is new, it is evident on old EKG from this past summer so not an acute change. Patient's BP is elevated in ED but only to 160s/70s. 01/28/20 18:[address] reveals 9mm lesion concerning for cerebral aneurysm. Radiology recommends CTA to r/o aneurysm and if positive recommends LP for eval for xanthochromia. Patient's GFR is 42 so 500cc bolus ordered for hydration. Will get head/neck CTA now and f/u results. 01/28/20 1900 Patient care transitioned to Dr. Jelani dia team ED physician pending CTA results and disposition. Departure - Departure Time of Disposition: 19:00 (transitioned care ) Disposition: Still A Patient 30 Clinical Impression: Headache Qualifiers: Headache type: unspecified Headache chronicity pattern: acute headache Intractability: not intractable Qualified Code(s): R51.9 - Headache, unspecified - Discharge Information Instructions: Cerebral Aneurysm, Subarachnoid Hemorrhage, [id number] Referrals: PCP,None [Primary Care Provider] - Forms: ED Department Discharge, Refusal of Care AMA Sepsis Event Note (ED) - Evaluation Sepsis Screening Result: No Definite Risk - My Orders Last 24 Hours: My Active Orders 01/28/20 16:39 Saline Lock Insert [OM.PC] Stat - Assessment/Plan Last 24 Hours: My Active Orders 01/28/20 16:39 Saline Lock Insert [OM.PC] Stat
--- NOTE | 2020-01-28 17:46 | CR ---
INDICATION: hypertension TECHNIQUE: Chest 1 view. COMPARISON: 09/05/18 FINDINGS: Cardiovascular and mediastinum: Heart size and vasculature are normal in caliber and appearance. Mediastinum is within normal limits. Lungs and pleural space: Lungs are clear. No sign of infiltrate or mass. No sign of pleural effusion. No pneumothorax. Bones and soft tissues: No significant findings. IMPRESSION: Unremarkable chest. Dictated by: Milo Alarcon MD @ 01/28/2020 17:44:29 (Electronically Signed)
[2020-01-28 17:59] LABS: BLOOD UREA NITROGEN,BUN 26 mg/dL (7.0-18.0); CARBON DIOXIDE,CO2 25.3 mmol/L (21.0-32.0); CHLORIDE,CL 104 mmol/L (98-107); GLUCOSE RANDOM 87 mg/dL (74-106); POTASSIUM,K 4.4 mmol/L (3.5-5.1); SODIUM,NA 138 mmol/L (136-148)
--- NOTE | 2020-01-28 18:04 | CT ---
DATE: 01/28/2020. CLINICAL HISTORY: Patient with worst headache of life yesterday, now with hypertension. TECHNIQUE: Standard CT scanning of the head was performed. COMPARISON: Head CT dated 09/05/2018. FINDINGS: There is no intracranial hemorrhage. No extra-axial collection or midline shift. 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 Patchy hypoattenuation within the white matter of both hemispheres likely reflects sequela chronic small vessel ischemia. Mild parenchymal volume loss with associated prominence of the cerebral sulci and ventricles. The calvarium is unremarkable. The orbits are unremarkable. The paranasal sinuses are unremarkable. Left to right deviation of the nasal septum with associated bony spur. The mastoid air cells are unremarkable. The soft tissues are unremarkable. IMPRESSION: 1. No acute intracranial hemorrhage. 2. 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 Given the worst headache of life presentation yesterday, recommend CTA head and neck to confirm aneurysm, and if indeed aneurysm, lumbar puncture is recommended to rule out xanthochromia, which would be indicative of recent subarachnoid hemorrhage. Please note that all CT scans at this facility use dose modulation, iterative reconstruction, and/or weight-based dosing when appropriate to reduce radiation dose to as low as reasonably achievable. Dictated by Yusuf Herbert MD @ Jan 28 2020 5:54PM Signed by Dr. Yusuf Herbert @ Jan 28 2020 6:04PM
[2020-01-28] MEDS ORDERED: Sodium Chloride 0.9% 500 ML IV SCH (18:15)
[2020-01-28] MEDS ORDERED: Iopamidol 755 MG/ML 500 ML Multipack Bottle IVPUSH ONE (18:54)
--- NOTE | 2020-01-28 19:43 | CT ---
DATE: 01/28/2020 CLINICAL HISTORY: Patient with headache and possible Acomm aneurysm. TECHNIQUE: Standard helical CT image acquisition through the head and neck was performed after intravenous contrast bolus enhancement. Multiplanar reconstructed images were performed and interpreted. 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 The origin of the right vertebral artery is patent. The origin of the left vertebral artery demonstrates moderate narrowing. The common carotid arteries are patent There is a moderate (60%) stenosis at the origin of the right internal carotid artery by NASCET criteria, caused by calcified and noncalcified plaque with a 1.5mm residual lumen. There is mild (<50%) stenosis at the origin of the left internal carotid artery by NASCET criteria. The rest of the cervical segments of the internal carotid arteries are patent up to their intracranial segments. The intracranial segments of the internal carotid arteries are patent. The left vertebral artery is dominant. The cervical segments of the vertebral arteries are patent. The intracranial segments of the vertebral arteries are patent. The middle cerebral arteries are normal without aneurysm or proximal occlusion identified. The anterior cerebral arteries are normal without aneurysm or proximal occlusion identified. The basilar artery is normal without aneurysm or occlusion. The posterior cerebral arteries are normal without aneurysm or proximal occlusion. There is normal opacification of major intracranial venous structures. The visualized lung apices demonstrate emphysematous changes with a spiculated lesion in the right upper lobe. The thyroid gland is unremarkable. The soft tissues of the neck are unremarkable. There are degenerative changes in the cervical spine. IMPRESSION: 1. 10mm multilobulated anterior communicating artery aneurysm. Given the history of sudden onset of severe headache and negative head CT, determination for the presence of a sentinel hemorrhage with a lumbar puncture is recommended. If the lumbar puncture is positive for blood, then arrangements for transfer to [place] for urgent treatment can be made by calling the [facility] at . Alternatively, if the lumbar puncture is negative for blood (or the patient refuses), arrangements for treatment at [place] within the next couple of weeks can be made by calling the Neurointerventional Service on Friday morning at [phone]. 2. Moderate (60%) stenosis at the origin of the right internal carotid artery by NASCET criteria caused by calcified and noncalcified plaque with a 1.5mm residual lumen. 3. Mild (<50%) stenosis at the origin of the left internal carotid artery by NASCET criteria. 4. Emphysematous changes with a spiculated lesion in the right upper lobe. Further evaluation with a dedicated chest CT is recommended to exclude a neoplasm. Findings and recommendations were discussed with Dr. Watts, covering for Dr. Rubio, at 7:45 PM. Keyshawn Trevino MD Neurointerventional Radiologist [facility] Please note that all CT scans at this facility use dose modulation, iterative reconstruction, and/or weight-based dosing when appropriate to reduce radiation dose to as low as reasonably achievable. Dictated by Keyshawn Trevino MD @ Jan 28 2020 7:51PM Signed by Dr. Keyshawn Trevino @ Jan 28 2020 8:07PM
--- NOTE | 2020-01-28 19:43 | CT ---
DATE: 01/28/2020 CLINICAL HISTORY: Patient with headache and possible Acomm aneurysm. TECHNIQUE: Standard helical CT image acquisition through the head and neck was performed after intravenous contrast bolus enhancement. Multiplanar reconstructed images were performed and interpreted. 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 The origin of the right vertebral artery is patent. The origin of the left vertebral artery demonstrates moderate narrowing. The common carotid arteries are patent There is a moderate (60%) stenosis at the origin of the right internal carotid artery by NASCET criteria, caused by calcified and noncalcified plaque with a 1.5mm residual lumen. There is mild (<50%) stenosis at the origin of the left internal carotid artery by NASCET criteria. The rest of the cervical segments of the internal carotid arteries are patent up to their intracranial segments. The intracranial segments of the internal carotid arteries are patent. The left vertebral artery is dominant. The cervical segments of the vertebral arteries are patent. The intracranial segments of the vertebral arteries are patent. The middle cerebral arteries are normal without aneurysm or proximal occlusion identified. The anterior cerebral arteries are normal without aneurysm or proximal occlusion identified. The basilar artery is normal without aneurysm or occlusion. The posterior cerebral arteries are normal without aneurysm or proximal occlusion. There is normal opacification of major intracranial venous structures. The visualized lung apices demonstrate emphysematous changes with a spiculated lesion in the right upper lobe. The thyroid gland is unremarkable. The soft tissues of the neck are unremarkable. There are degenerative changes in the cervical spine. IMPRESSION: 1. 10mm multilobulated anterior communicating artery aneurysm. Given the history of sudden onset of severe headache and negative head CT, determination for the presence of a sentinel hemorrhage with a lumbar puncture is recommended. If the lumbar puncture is positive for blood, then arrangements for transfer to [place] for urgent treatment can be made by calling the [facility] at . Alternatively, if the lumbar puncture is negative for blood (or the patient refuses), arrangements for treatment at [place] within the next couple of weeks can be made by calling the Neurointerventional Service on Friday morning at [phone]. 2. Moderate (60%) stenosis at the origin of the right internal carotid artery by NASCET criteria caused by calcified and noncalcified plaque with a 1.5mm residual lumen. 3. Mild (<50%) stenosis at the origin of the left internal carotid artery by NASCET criteria. 4. Emphysematous changes with a spiculated lesion in the right upper lobe. Further evaluation with a dedicated chest CT is recommended to exclude a neoplasm. Findings and recommendations were discussed with Dr. Watts, covering for Dr. Rubio, at 7:45 PM. Keyshawn Trevino MD Neurointerventional Radiologist [facility] Please note that all CT scans at this facility use dose modulation, iterative reconstruction, and/or weight-based dosing when appropriate to reduce radiation dose to as low as reasonably achievable. Dictated by Keyshawn Trevino MD @ Jan 28 2020 7:53PM Signed by Dr. Keyshawn Trevino @ Jan 28 2020 8:08PM
--- NOTE | 2020-01-28 20:19 | PCM.SN.2 ---
- Free Text/Narrative Note: Patient Mr. Guevara was signed out to me by Dr. Rubio at 1900 pending CTA of the head and neck as CT without contrast revealed evidence of possible aneurysm. I did have a discussion with the patient prior to CTAs final read. The patient presented to the emergency department for headache that started last night which is described as 10 out of 10 located throughout his head not associated with any blurry vision, loss of vision, numbness, tingling, or weakness. He states that he did have a history of headache intermittently throughout his life. He states that this headache is similar to prior headaches he has. At the time of evaluation the patient's systolic blood pressures in the 170s heart rate was approximately 60. He states since being in the emergency department his headache had resolved and is no longer feeling any pain or any symptoms at all whatsoever. Constitutional: Blood pressure is 170/75, heart rate 58, respiratory rate 18 with an oxygen saturation 97% on room air. General: Overall well-appearing elderly man who is in no acute distress Psychiatric: Appropriate mood and affect. Eyes: No scleral icterus or conjunctival erythema pupils are equal round reactive to light and accommodation. Extraocular movements are intact. No vertical or horizontal nystagmus. Patient does not have any visual field defects. ENMT: Moist mucous membranes. No pharyngeal erythema tongue protrudes midline. Cardiovascular: Regular, rate, and rhythym. No gallops, murmurs, or rubs. Bilateral upper extremity pulses symmetric and intact. No peripheral edema. No JVD. Respiratory: Lungs clear to auscultation bilaterally. No wheezes, rales, or rhonchi. Gastrointestinal: Soft, non-tender, non-distended. Normoactive bowel sounds Genitourinary: No suprapubic tenderness Musculoskeletal: Normal range of motion. Skin: No lesions or abrasions. Neurological: AOx4. CN grossly intact. Stregth 5/5 in bilateral upper and lower extremity. Sensation is intact bilaterally in upper and lower extremity. Gait appears normal. Finger to nose, heel to alvarez, rapid alternating movements intact. I did receive a call by Dr. Trevino who is the neurological cargo station worker at [facility] in [place] who discussed with me the results of the CTA head and neck. At this point the patient's final reports had not yet been submitted. Dr. Oliver informed me that the patient does have a 10 mm multilobulated anterior communicating artery aneurysm. He expressed that at this time the next step is to obtain a lumbar puncture to evaluate for a sentinel bleed. He stated that if the lumbar puncture was positive for blood than he would be amenable to transfer for urgent treatment and if the patient refuses or the lumbar puncture is negative the patient can follow-up with him in [place] within the next couple weeks as this aneurysm is amenable to treatment to prevent further complications. I did have a lengthy discussion with the patient regarding the imaging results. At the time of my discussion with the patient the patient was alert and oriented x4 and was currently asymptomatic without any focal neurological deficits. I did discuss him at this time I like to obtain a lumbar puncture to evaluate for xanthochromia. Lumbar puncture procedure was described in detail and it was discussed with the patient that if there is a sentinel bleed there is a high likelihood of this aneurysm rupturing and could cause and that earlier treatment is preferred. At this time the patient refused a lumbar puncture and would rather call on 01/30/2020 to schedule an appointment with Dr. Trevino at [facility]. The patient was able to reiterate the risks of not performing lumbar puncture and that there is a risk of larger bleed and even . At this time I do believe the patient although not what we recommend is able to make his own decisions and understands the consequences. Therefore, at this point the patient will be discharged home and he was given strict return precautions including worsening headache, any numbness tingling or weakness, trouble walking, or trouble speaking. He did express understanding and was amenable to discharge at this time. The radiological images were viewed by myself along with reading the report from the radiologist. CTA of the head reveals a 10 mm multilobulated anterior communicating aneurysm with emphysematous changes with a spiculated lesion in the right upper lobe. CTA of the neck reveals moderate stenosis at the origin of the right internal carotid artery, mild stenosis of the left internal carotid artery. Given the incidental finding of the spiculated nodule and on CT I did discuss this with the patient and discussed that he needs to follow-up with pulmonology or his primary care physician within 1 week. He will did express understanding. The patient was apprised of the potential risks of leaving the hospital AGAINST MEDICAL ADVICE. They include serious complications, permanent disability, and . At the time of my interview with the patient, the patient was alert, oriented, and capable. I urged the patient to return to the hospital as soon as possible to complete their evaluation and treatment. Disposition: Patient left AGAINST MEDICAL ADVICE Status: Serious Final diagnosis 1. Acute headache possibly secondary to subarachnoid hemorrhage versus sentinel bleed from aneurysm 2. Acute aneurysm
[2020-01-28 21:00] VITALS: BP 190/90; PULSE 89
== END 2020-01-28 21:00 | disposition still patient (30) ==
LOC: MW.ED 15:52
DX: R51.9 Headache, unspecified (principal); I10 Essential (primary) hypertension; E78.00 Pure hypercholesterolemia, unspecified; I25.2 Old myocardial infarction; Z95.5 Presence of coronary angioplasty implant and graft; Z79.82 Long term (current) use of aspirin; Z79.02 Long term (current) use of antithrombotics/antiplatelets; Z79.899 Other long term (current) drug therapy
CPT/HCPCS: 36415; 70450; 70496; 70498; 71045; 80053; 83735; 83880; 84484; 85025; 93005; 96360; 99284; J7040; Q9967; 93010; 99283

== ENCOUNTER 2020-01-28 22:20 | Emergency (ER) | payer OTHER ==
[2020-01-28 22:37] VITALS: PULSE 58
[2020-01-28] MEDS ORDERED: Sodium Chloride 0.9% 500 ML IV SCH (23:45)
--- NOTE | 2020-01-29 01:16 | EDM.PDOC ---
ED HPI GENERAL MEDICAL PROBLEM - General Chief Complaint: General Stated Complaint: SPINAL TAP Time Seen by Provider: 01/28/20 22:34 - History of Present Illness INITIAL COMMENTS - FREE TEXT/NARRATIVE: CHIEF COMPLAINT(S): Return for lumbar puncture HISTORY OF PRESENT ILLNESS: This is a 74-year-old man with a recent visit to our emergency department today for worst headache of his life who was found to have a large cerebral aneurysm and concern for sentinel hemorrhage who left AGAINST MEDICAL ADVICE who comes to the emergency department with a chief complaint of return for lumbar puncture. The patient states that he has returned to the hospital per recommendation of his nephew to obtain the lumbar puncture to evaluate for any bleeding. He currently denies any symptoms including headache, blurry vision, numbness, tingling, weakness. He denies any chest pain or shortness of breath. He denies any fever or chills. REVIEW OF SYSTEMS: Constitutional: Denies fever, chills. Eyes: Denies eye pain Ears, Nose, Mouth, & Throat: Denies earache Cardiovascular: Denies chest pain Respiratory: Denies shortness of breath Gastrointestinal: Denies Nausea, vomiting, diarrhea, hematochezia. Genitourinary: Denies hematuria Skin:Denies a rash Neurological: Denies blurred vision Psychiatric: Denies depression PAST MEDICAL HISTORY: As per history of present illness and as reviewed below otherwise noncontributory. SURGICAL HISTORY: As per history of present illness and as reviewed below otherwise noncontributory. SOCIAL HISTORY: As per history of present illness and as reviewed below otherwise noncontributory. FAMILY HISTORY: As per history of present illness and as reviewed below otherwise noncontributory. EXAMINATION OF ORGAN SYSTEMS/BODY AREAS: Constitutional: Blood pressure was 132/62, heart rate 85, respiratory 18 with an oxygen saturation 97% on room air. General: Overall well-appearing man who is in no acute distress Psychiatric: Appropriate mood and affect. Eyes: No scleral icterus or conjunctival erythema pupils equal round reactive to light. Extraocular movements intact. ENMT: Moist mucous membranes. No pharyngeal erythema Cardiovascular: Regular, rate, and rhythym. No gallops, murmurs, or rubs. Bilateral upper extremity pulses symmetric and intact. No peripheral edema. No JVD. Respiratory: Lungs clear to auscultation bilaterally. No wheezes, rales, or rhonchi. Gastrointestinal: Soft, non-tender, non-distended. Normoactive bowel sounds Genitourinary: No suprapubic tenderness Musculoskeletal: Normal range of motion. Skin: No lesions or abrasions. Neurological: AOx4. CN grossly intact. Stregth 5/5 in bilateral upper and lower extremity. Sensation is intact bilaterally in upper and lower extremity. Gait appears normal. Finger to nose, heel to alvarez, rapid alternating movements intact. MEDICAL DECISION MAKING AND COURSE IN THE ED WITH INTERPRETATION/REVIEW OF DIAGNOSTIC STUDIES: This is a 74-year-old man in with a recent emergency department visit yesterday for worst headache of his life who was evaluated by my colleague and found to have a large cerebral aneurysm with concern for sentinel bleed who left AGAINST MEDICAL ADVICE who comes to the emergency depart ment with return for lumbar puncture who is bradycardic however normotensive with normal examination. I did evaluate this patient on signout and the patient left AGAINST MEDICAL ADVICE and did not want a lumbar puncture. I did instruct the patient to come back to the emergency department for further work-up. He has returned for lumbar puncture. I do not believe any labs or other imaging are indicated as the patient is stable without any focal deficits. Procedure note [place] precautions were taken. The area was prepped with povidone and the skin was locally anesthetized with 1% lidocaine. A spinal needle with stylette was inserted between the L4 and L5 spinous processes. CSF was obtained and sent to the lab. Opening pressure was not obtained. The patient is instructed to remain in the supine position in the emergency department for the next hour Labs are sent on CSF of tubes 1 and 4 to evaluate for xanthochromia and RBCs. There was no evidence of xanthochromia on CSF with tube 1 having 21 red blood cells and 2 before having 7 red blood cells indicating traumatic tap but not indicating subarachnoid hemorrhage or bleeding. After labs had returned I did contact neurological client analyst at [facility] in [place] Dr. Trevino and I discussed the results with him. He indicated at this time the patient has no indication for transfer and that he should call him on Friday, January 30, 2020 to set up an appointment for outpatient elective management of his cerebral aneurysm. I discussed this with the patient and he was amenable to discharge at this time. He is to return for any new or worsening symptoms. DISPOSITION: The patient was discharged home in stable condition. The patient will follow up with Dr. Trevino 2 weeks CONDITION: Fair PROCEDURES: Lumbar puncture FINAL IMPRESSION(S)/DIAGNOSES: 1. Acute headache, resolved 2. Acute cerebral aneurysm Jelani Walters M.D. - Related Data Allergies Allergy/AdvReac Type Severity Reaction Status Date / Time No Known Allergies Allergy Verified 01/28/20 22:38 Home Meds: Home Meds Aspirin [Low Dose Aspirin EC] 81 tab PO DAILY 09/05/18 [History] Clopidogrel [Plavix] 75 mg PO DAILY 09/05/18 [History] Lisinopril 40 mg PO DAILY 09/05/18 [History] Metoprolol Succinate [Toprol XL 50mg] 25 mg PO DAILY 09/05/18 [History] Omeprazole 20 mg PO ASDIRECTED 09/05/18 [History] atorvaSTATin Calcium [Atorvastatin Calcium] 80 mg PO DAILY 09/05/18 [History] Past Medical History HEENT History: Reports: None Cardiovascular History: Reports: High Cholesterol, Hypertension, NM, Stents, Other (See Below) Other Cardiovascular History: nuclear stress test Respiratory History: Reports: Other (See Below) Other Respiratory History: polyp in lung Gastrointestinal History: Reports: None Genitourinary History: Reports: None Musculoskeletal History: Reports: Back Pain, Chronic Neurological History: Reports: None Psychiatric History: Reports: None Endocrine/Metabolic History: Reports: None Hematologic History: Reports: None Immunologic History: Reports: None Oncologic (Cancer) History: Reports: None - Infectious Disease History Infectious Disease History: Reports: None - Past Surgical History Head Surgeries/Procedures: Reports: None Neurological Surgical History: Reports: Other (See Below) Other Neurological Surgeries/Procedures: 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 Social & Family History - Family History Family Medical History: Noncontributory HEENT: Reports: None - Tobacco Use Smoking Status *Q: Current Every Day Smoker Years of Tobacco use: 64 Packs/Tins Daily: 1 - Caffeine Use Caffeine Use: Reports: Coffee - Recreational Drug Use Recreational Drug Use: No ED ROS GENERAL - Review of Systems Review Of Systems: See Below ED EXAM, GENERAL - Physical Exam Exam: See Below Course - Vital Signs Last Recorded V/S: Last Vital Signs Temp 35.4 C L 01/28/20 22:36 Pulse 58 L 01/29/20 01:30 Resp 20 01/29/20 01:30 BP 132/68 01/29/20 01:30 Pulse Ox 96 01/29/20 01:30 - Orders/Labs/Meds Labs: Laboratory Tests 01/28/20 01/28/20 01/28/20 Range/Units 23:30 23:30 23:30 CSF Appearance CLEAR CLEAR CSF Color COLORLESS COLORLESS CSF WBC 8 H 1 (0-5) /uL CSF RBC 21 H 7 H (0-0) /uL CSF Mononuclear Cells 75.0 100.0 % CSF Polymorphonuclear 25.0 0.0 % CSF Glucose 51.0 (40-70) mg/dL CSF Total Protein 72 H (15-45) mg/dL Meds: Medications Discontinued Medications Generic Name Dose Route Start Last Admin Trade Name Freq PRN Reason Stop Dose Admin Sodium Chloride 500 mls @ 499 mls/hr 01/28/20 23:45 01/28/20 23:50 Normal Saline IV 499 mls/hr .BOLUS CASSIE Administration Lidocaine HCl Confirm 01/28/20 22:35 01/28/20 22:35 Xylocaine-Mpf 1% Administered 01/28/20 22:36 10 ml Dose Administration 10 ml .ROUTE .STK-MED ONE Departure - Departure Time of Disposition: 01:14 Disposition: Home, Self-Care 01 Condition: Fair Clinical Impression: Cerebral aneurysm without rupture Headache Qualifiers: Headache type: unspecified Headache chronicity pattern: acute headache Intractability: not intractable Qualified Code(s): R51.9 - Headache, unspecified - Discharge Information *PRESCRIPTION DRUG MONITORING PROGRAM REVIEWED*: No *COPY OF PRESCRIPTION DRUG MONITORING REPORT IN PATIENT MARY: No Instructions: Cerebral Aneurysm Referrals: Seymour [facility] EXPRESSIVE THERAPIST [Primary Care Provider] - Forms: ED Department Discharge Additional Instructions: The patient is informed of any results of their evaluation and diagnostic workup and all questions are answered. They are given discharge instructions and return precautions. The patient is stable for discharge. The patient states they understand and agree with the plan and that they will return if their symptoms get worse or if they have any new concerns. The following information is given to patients seen in the emergency department who are being discharged to home. This information is to outline your options for follow-up care. We provide all patients seen in our emergency department with a follow-up referral. The need for follow-up, as well as the timing and circumstances, are variable depending upon the specifics of your emergency department visit. If you don't have a primary care physician on staff, we will provide you with a referral. We always advise you to contact your personal physician following an emergency department visit to inform them of the circumstance of the visit and for follow-up with them and/or the need for any referrals to a consulting specialist. The emergency department will also refer you to a specialist when appropriate. This referral assures that you have the opportunity for follow-up care with a specialist. All of these measure are taken in an effort to provide you with optimal care, which includes your follow-up. Under all circumstances we always encourage you to contact your private physician who remains a resource for coordinating your care. When calling for follow-up care, please make the office aware that this follow-up is from your recent emergency room visit. If for any reason you are refused follow-up, please contact the Emergency Department at and asked to speak to the emergency department charge nurse. PLEASE CALL DR. TREVINO @ [phone] TO SET UP AN APPOINTMENT FOR TREATMENT OF YOUR CEREBRAL ANEURYSM ON 01/30/2020. Sepsis Event Note (ED) - Evaluation Sepsis Screening Result: No Definite Risk - Focused Exam Vital Signs: Vital Signs Temp Pulse Resp BP Pulse Ox 01/29/20 01:30 58 L 20 132/68 96 01/29/20 01:06 56 L 18 132/62 97 01/28/20 22:36 35.4 C L 58 L 18 172/76 H 98
[2020-01-29 01:50] VITALS: BP 132/68
== END 2020-01-29 01:30 | disposition home or self-care (01) ==
LOC: MW.ED 22:20
DX: I67.1 Cerebral aneurysm, nonruptured (principal); E78.00 Pure hypercholesterolemia, unspecified; I10 Essential (primary) hypertension; I25.2 Old myocardial infarction; F17.210 Nicotine dependence, cigarettes, uncomplicated; Z79.02 Long term (current) use of antithrombotics/antiplatelets; Z79.899 Other long term (current) drug therapy; Z79.82 Long term (current) use of aspirin
CPT/HCPCS: 62270; 82945; 84157; 89050; 96360; 99284; J2001; J7040; 99283

== ENCOUNTER 2020-03-02 20:24 | Emergency (ER) | payer OTHER ==
[2020-03-02] MEDS: Albuterol/Ipratropium 3.0-0.5 MG/3 ML Neb Soln NEB SCH (20:25)
[2020-03-02] MEDS ORDERED: Sodium Chloride 0.9% 2.5 ML Syringe FLUSH PRN (20:32)
[2020-03-02] MEDS ORDERED: Sodium Chloride 0.9% 10 ML Syringe FLUSH PRN (20:32)
[2020-03-02] MEDS ORDERED: methylPREDNISolone Sodium Succinate 40 MG/1 ML SDV IVPUSH ONE (20:35)
--- NOTE | 2020-03-02 21:00 | CT ---
Indication: Fall, on Plavix Technique: Volumetric multidetector CT images of the head were obtained without the administration of low osmolar intravenous contrast. Comparison: CT angio head 01/28/2020 Findings: There is no intra-axial or extra-axial fluid collection. There is no mass effect or midline shift. There is cortical atrophy with sulcal widening and ex vacuo dilatation of the lateral ventricles. There is mild chronic small vessel disease change of the subcortical and periventricular white matter. 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 The orbits and their contents are grossly within normal limits. The bony calvarium is grossly intact. The paranasal sinuses demonstrate minimal mucosal thickening. The mastoid air cells are well aerated. Impression: Demonstration of aneurysm coiling of previously noted anterior communicating artery aneurysm. No evidence of acute intracranial abnormality. Please note that all CT scans at this facility use dose modulation, iterative reconstruction, and/or weight-based dosing when appropriate to reduce radiation dose to as low as reasonably achievable. Dictated by Hermilo Garza MD @ Mar 02 2020 8:53PM Signed by Dr. Hermilo Garza @ Mar 02 2020 8:59PM
--- NOTE | 2020-03-02 21:09 | CR ---
Indication: Fall. On Plavix. Technique: AP portable view of the chest. Comparison: January 28, 2020. Findings: Right basilar atelectasis is identified. The heart is normal in size. No infiltrate, pleural effusion, or pneumothorax is identified. Impression: No acute cardiopulmonary process Dictated by Karen Pate MD @ Mar 02 2020 9:06PM Signed by Dr. Karen Pate @ Mar 02 2020 9:07PM
--- NOTE | 2020-03-02 21:09 | CR ---
Indication: Fall. Technique: AP view of the pelvis. Comparison: None Findings: The femoral heads are seated within the acetabula. Degenerative changes of the lower lumbar spine and both hips are identified. No fracture or subluxation is identified. Impression: Degenerative change. Dictated by Karen Pate MD @ Mar 02 2020 9:06PM Signed by Dr. Karen Pate @ Mar 02 2020 9:06PM
--- NOTE | 2020-03-02 21:09 | CT ---
Indication: Fall Technique: Volumetric multidetector CT images of the cervical spine were obtained without the administration of IV contrast. 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 The cervical alignment demonstrates straightening of the normal cervical lordosis. There is trace retrolisthesis of C3 on C4. There is moderate multilevel degenerative disc disease with disc height loss and marginal osteophyte formation. There is moderate to severe facet arthrosis. There is redemonstrated of a spiculated mass within partially visualized right upper lobe with partial visualization of pleural effusion. Impression: Moderate multilevel degenerative changes of the cervical spine without evidence of acute osseous abnormality. There is redemonstration of spiculated right upper lobe mass. There is new pleural effusion. Please note that all CT scans at this facility use dose modulation, iterative reconstruction, and/or weight-based dosing when appropriate to reduce radiation dose to as low as reasonably achievable. Dictated by Hermilo Garza MD @ Mar 02 2020 8:59PM Signed by Dr. Hermilo Garza @ Mar 02 2020 9:07PM
[2020-03-02 21:26] LABS: BLOOD UREA NITROGEN,BUN 13 mg/dL (7.0-18.0); CHLORIDE,CL 102 mmol/L (98-107); GLUCOSE RANDOM 132 mg/dL (74-106); POTASSIUM,K 3.4 mmol/L (3.5-5.1); SODIUM,NA 138 mmol/L (136-148)
--- NOTE | 2020-03-02 21:33 | EDM.PDOC ---
ED HPI GENERAL MEDICAL PROBLEM - General Chief Complaint: Trauma Stated Complaint: SEIZURE Time Seen by Provider: 03/02/20 20:30 - History of Present Illness INITIAL COMMENTS - FREE TEXT/NARRATIVE: CHIEF COMPLAINT(S): Fall HISTORY OF PRESENT ILLNESS: This is a 74-year-old man with a past medical history of left bundle branch block, cerebral aneurysm status post coiling recently who was just discharged from who presents to the emergency department as a trauma alert after a fall. Per EMS: The patient just arrived in [place] and was trying to go up the steps with his nephew when he missed a step and fell hitting his head having brief loss of consciousness and reported seizure-like activity. They stated that the patient in route was hypoxic so they placed him on nonrebreather and brought him to the emergency department. Per the patient he is experiencing shortness of breath. He denies any chest pain or preceding chest pain prior to the fall. He denies any headache, blurry vision, diplopia, numbness, tingling, or weakness. He states that he is not on home oxygen. He denies any lower extremity edema but states that he does have some orthopnea. Collateral information was obtained from nephkimmy Aldridge who was in waiting room. Endy stated that they were walking up the steps to get into the house when he took a misstep. The nephew stated that he tried to catch him by holding onto his hoodie however the patient fell and hit the anterior part of his head. He states that he did have loss of consciousness and had a 5 to 7-second seizure which he describes as upper and lower body shaking with an period of confusion afterwards. He states that he did become incontinent at this time. He states that he does not have a past medical history of seizures. REVIEW OF SYSTEMS: Constitutional: Denies fever, chills. Eyes: Denies eye pain Ears, Nose, Mouth, & Throat: Denies earache Cardiovascular: Denies chest pain Respiratory: Positive for shortness of breath. Gastrointestinal: Denies Nausea, vomiting, diarrhea, hematochezia. Genitourinary: Denies hematuria Skin:Denies a rash Neurological: Positive for head injury, seizure-like activity, mild postictal phase. Denies numbness, tingling, weakness Psychiatric: Denies depression PAST MEDICAL HISTORY: As per history of present illness and as reviewed below otherwise noncontributory. SURGICAL HISTORY: As per history of present illness and as reviewed below otherwise noncontributory. SOCIAL HISTORY: As per history of present illness and as reviewed below otherwise noncontributory. FAMILY HISTORY: As per history of present illness and as reviewed below otherwise noncontributory. EXAMINATION OF ORGAN SYSTEMS/BODY AREAS: VITALS: Heart rate was 103, blood pressure 131/80, respiratory rate 30 with an oxygen saturation 96% on 8 L nonrebreather. Temperature 36.2 GENERAL: This is a elderly gentleman who appears to be in respiratory distress.. HEAD, EARS, EYES, NOSE THROAT: Normocephalic, atraumatic. PERRL. EOM are intact. There was no facial bone tenderness. Ears were clear, no hemotympanum. Oropharynx is clear. No missing or chipped teeth. Neck was supple and nontender. RESPIRATORY: The patient is tachypneic with diminished breath sounds bilaterally and expiratory wheezing. Patient speaking in 1-2 word sentences. CARDIOVASCULAR: Tachycardic. Heart sounds were normal. There is no S3, S4, murmur, rub. There is no chest wall tenderness. No crepitus. Radial and dorsalis pedis pulses were palpable and equal bilaterally. Trace pitting edema of the lower extremities. ABDOMEN: The abdomen was soft, nondistended, and nontender to palpation. There was no guarding or rebound tenderness. Bowel sounds were present throughout the abdomen and normal. Pelvis was stable and not tender to rock. There is area of ecchymosis on the lower part of his abdomen and right thigh area which is not pulsatile or actively bleeding SPINE: There is no cervical, thoracic or lumbar spine tenderness. Appropriate rectal tone. EXTREMITIES: Extremity examination revealed no deformity, localized swelling, contusions, or other abnormality. Patient is moving all 4 extremities equally. Distal pulses palpable in bilterally. NEUROLOGICAL: Alert and oriented. On neurological examination Winter Coma Scale was 15. Facies were symmetrical. Strength was good in all extremities. SKIN: Appropriately warm to touch. No rashes, or pallor. No overt signs of trauma. Patient does have a stage I decubitus ulcer with a patch in place. MEDICAL DECISION MAKING AND COURSE IN THE ED WITH INTERPRETATION/REVIEW OF DIAGNOSTIC STUDIES: This is a 74-year-old man with a past medical history of ACS, recent history of cerebral aneurysm status post coiling who presents to emergency department as a trauma alert after a fall with a reported seizure. Immediately upon entering the resuscitation bay ATLS protocol was followed, the patient is disrobed, and placed on continuous cardiac monitoring as well as pulse oximetry. Patient tells me their name displaying a patent airway, breath sounds are diminished bilaterally with expiratory wheezing, and patient has palpable pulses in all 4 extremities. Therefore at this time we did provide the patient with a DuoNeb treatment administered 40 mg of IV Solu-Medrol. The patient does not have any gross deformities, and does not have any gross deficit. Upon exposure no further lesions are seen. Palpation of the cervical, thoracic, and lumbar spine no tenderness. IV access is obtained, and trauma labs are sent. At this time an EKG was obtained which did reveal left bundle branch block which is unchanged from prior with an irregular rhythm. The patient does not have a history of atrial fibrillation that we know of. At the time of our evaluation the patient's heart rate was 103 therefore we will hold off on chemical cardioversion at this time. Will obtain CT head and CT C-spine to evaluate for intracranial hemorrhage or cervical spine fracture. Will obtain a chest x-ray given the shortness of breath. Also obtain a pelvic x-ray given the fall. Bedside lung and cardiac ultrasound was performed by myself. The patient did have B-lines bilaterally. No evidence of pneumothorax. Cardiac examination revealed no pericardial effusion with what appears to be adequate cardiac output. There was no evidence of right heart strain. Given the recent admission, hypoxia, and tachycardia we will obtain a D-dimer to further stratify for pulmonary embolism. Chest x-ray as reviewed by myself and radiologist shows no acute cardiopulmonary process with right basilar atelectasis. No evidence of pneumothorax. Pelvis x- ray shows no fracture dislocation of the pelvis or lower lumbar spine.. With this initial workup completed the patient is suitable for transfer to CT. The radiological images were viewed by myself along with reading the report from the radiologist. CT head without contrast does not reveal any acute intracranial hemorrhage and does show the DAYNE coil. CT cervical spine does not reveal any fracture or subluxation. It does show moderate multilevel degenerative changes of the cervical spine without evidence of fracture. There is asymmetry demonstrated spiculated mass in the right upper lobe. There is partial visualization of a pleural effusion. After CT the patient's oxygenation had decreased after laying flat therefore we did set up the patient and started the patient on BiPAP with initial settings of 8/4. Twelve-lead EKG interpreted by myself. Atrial fibrillation at a rate of 135 beats per minute. Normal axis. [place] interval is unobtainable QRS duration is 139ms. given left bundle branch block this EKG does not meet Scarbosa criteria. No Q waves present. Hypertrophy not noted. Atrial fibrillation is a significant change from January 28, 2020. Interpretation: Atrial fibrillation with RVR and left bundle branch block The patient also had tachycardia which was irregular on the monitor. Therefore we provided the patient with 5 mg of IV metoprolol as the patient does take this at home to rate control for new onset atrial fibrillation. After administration of 5 mg of IV metoprolol the patient continued to remain tachycardic into the 150s. Therefore after reviewing the patient's EKG it does appear to be atrial fibrillation with RVR with left bundle branch block and does not meet scar Bosa criteria for STEMI I did contact at [facility] to review the EKG as this is wide-complex irregular tachycardia there is possible concern for ventricular tachycardia. He did review the EKG and it is thought to be atrial fibrillation with left bundle branch block. He recommended administration of low-dose Cardizem 5 mg and to start the patient on digoxin 0.5 mg by mouth. Therefore we did provide the patient with 5 mg of IV Cardizem push which did not decrease the patient's rate. After approximately 15 minutes we did administer an additional dose of 5 mg of IV Cardizem with his heart rate decreasing to 89 however returning back to 150s intermittently. Laboratory: CBC reveals a mild leukocytosis of 11.95 with neutrophilic predominance, normocytic anemia with a hemoglobin of 8.7 and hematocrit of 26.6. INR is normal. Lactate is 2.2. CMP reveals hypokalemia 3.4, elevated creatinine of 1.4, hyperglycemia at 132 and an mildly elevated bilirubin at 1.1, hypoalbuminemia at 2.5 otherwise unremarkable. Troponin x1 is negative. Coronavirus is negative. D-dimer is significantly elevated at greater than 35.2. Given the significant elevation in D-dimer and new onset hypoxia requiring BiPAP administration we will obtain a CT PE for further evaluation. We did replenish the patient's potassium by mouth and also provided the patient with a 500 cc bolus of IV normal saline. While the patient was at CT I did contact the patient's neuro interventionalist Dr. Brewster at [facility] where he was discharged today. He stated that at this time he recommends observation for the seizure as this is a new onset seizure. I also discussed with him regarding new onset atrial fibrillation the use of anticoagulation. He stated this would be okay. Therefore we will start the patient on a heparin drip. We will provide the patient with aspirin by mouth. Given the patient had a recent procedure at [facility] given the new onset atrial fibrillation and hypoxic respiratory failure I did discuss with the team there transfer back to this hospital and they did have beds at this time. The radiological images were viewed by myself along with reading the report from the radiologist. CT with pulmonary embolism protocol reveals moderate sized right pleural effusion with mild adjacent atelectasis with mild pulmonary special edema. Pulmonary emphysema. No evidence of PE. Again there is the lung nodule which is unchanged from prior. At the time of reevaluation, the patient's heart rate had improved to 82 and appeared to be sinus rhythm with left bundle branch block on the monitor. We were able to transfer the patient off BiPAP to nasal cannula at 5 L nasal cannula saturating at 96%. We did provide an additional DuoNeb treatment at this time. I did discuss with patient and nephew at bedside regarding transfer. They did accept transfer to [facility]. Therefore I contacted [facility] and spoke with accepting physician Dr. Cisneros who accepted the patient. At the time that I was speaking with the transfer line the patient's troponin did increase to 0.119. Prior to flight crew coming to picker/puller the patient, the patient did have some increased work of breathing with room saturation of 89% on room air. This was status post administration of DuoNeb treatment. Therefore we placed the patient back on the BiPAP machine. His oxygen saturation did improve to 97%. DISPOSITION: The patient was transferred to [facility] in stable condition CONDITION: Serious PROCEDURES: Cardiac monitoring interpretation, pulse oximetry interpretation FINAL IMPRESSION(S)/DIAGNOSES: 1. Acute mechanical fall 2. Acute closed head injury 3. Acute new onset generalized tonic-clonic seizure 4. Acute new onset atrial fibrillation with RVR 5. Acute hypoxic respiratory failure requiring noninvasive positive pressure ventilation likely secondary to COPD exacerbation versus CHF versus right-sided pleural effusion 6. Acute right-sided pleural effusion 7. Acute hypokalemia 8. Acute kidney injury 9. Acute elevated troponin possible NSTEMI versus type II IN Jelani Walters M.D. Critical Care Procedure Note Authorized and performed by: Jelani Walters M.D. Critical Care Time: 74 minutes Due to a high probability of clinically significant, life threatening deterioration, the patient required my highest level of preparedness to intervene emergently and I personally spent this critical care time directly and personally managing the patient. This critical care time included obtaining a history, examining the patient, pulse oximetry; ordering and review of studies; arranging urgent treatment with development of a management plan; evaluation of a patients reponse to treatment; frequent assessment; and discussions with other providers. This critical care time was performed to assess and manage the high probability of imminent, life threatening deterioration that could result in multiorgan failure. It was exclusive of separate billable procedures and treating other patients. Please see MDM section and rest of the note for further information on patient assessment and treatment. 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 - Related Data Allergies Allergy/AdvReac Type Severity Reaction Status Date / Time No Known Allergies Allergy Verified 03/02/20 22:14 Home Meds: Home Meds Aspirin [Low Dose Aspirin EC] 81 tab PO DAILY 09/05/18 [History] Clopidogrel [Plavix] 75 mg PO DAILY 09/05/18 [History] Lisinopril 20 mg PO DAILY 09/05/18 [History] Metoprolol Succinate [Toprol XL 50mg] 50 mg PO DAILY 09/05/18 [History] Omeprazole 20 mg PO ASDIRECTED 09/05/18 [History] atorvaSTATin Calcium [Atorvastatin Calcium] 80 mg PO DAILY 09/05/18 [History] Albuterol Sulfate [Proair Digihaler] 2 puff IH ASDIRECTED PRN 03/03/20 [History] Budesonide/Formoterol [Symbicort 160-4.5 MCG] 2 puff INH BID 03/03/20 [History] Nitroglycerin [Nitrostat] 1 tab SL ASDIRECTED PRN 03/03/20 [History] Past Medical History HEENT History: Reports: None Cardiovascular History: Reports: High Cholesterol, Hypertension, [place], Stents, Other (See Below) Other Cardiovascular History: nuclear stress test Respiratory History: Reports: Other (See Below) Other Respiratory History: polyp in lung Gastrointestinal History: Reports: None Genitourinary History: Reports: None Musculoskeletal History: Reports: Back Pain, Chronic Neurological History: Reports: None Psychiatric History: Reports: None Endocrine/Metabolic History: Reports: None Hematologic History: Reports: None Immunologic History: Reports: None Oncologic (Cancer) History: Reports: None - Infectious Disease History Infectious Disease History: Reports: None - Past Surgical History Neurological Surgical History: Reports: Other (See Below) Other Neurological Surgeries/Procedures: 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 DIRECTED Care 03/02/20 20:32 Active EKG Documentation Completion [RC] STAT Care 03/02/20 20:33 Active Pulse Oximetry [RC] ASDIRECTED Care 03/02/20 20:32 Active RT Aerosol Therapy [RC] ASDIRECTED Care 03/02/20 20:35 Active RT BiPAP/CPAP [RC] ASDIRECTED Care 03/02/20 21:33 Active B-TYPE NATRIURETIC PEPTIDE,BNP [CHEM] Stat Lab 03/02/20 20:35 Received PTT,PARTIAL THROMBOPLSTIN TIME [COAG] Stat Lab 03/03/20 00:42 Received Albuterol/Ipratropium [DuoNeb 3.0-0.5 MG/3 ML] Med 03/02/20 20:45 Active 3 ml NEB Q2H Heparin Sod,Pork In 0.45% Nacl [Heparin-1/2Ns 25,000 Med 03/03/20 00:30 Active Units/500] 25,000 unit in 500 ml IV TITRATE Sodium Chloride 0.9% [Saline Flush] Med 03/02/20 20:32 Active 10 ml FLUSH ASDIRECTED PRN Sodium Chloride 0.9% [Saline Flush] Med 03/02/20 20:32 Active 2.5 ml FLUSH ASDIRECTED PRN Saline Lock Insert [OM.PC] Stat Oth 03/02/20 20:32 Ordered Medication Orders Albuterol/Ipratropium (Duoneb 3.0-0.5 Mg/3 Ml) 3 ml NEB Q2H CASSIE Last Admin: 03/03/20 00:50 Dose: 3 ml Documented by: Admin: 03/02/20 20:25 Dose: 3 ml Documented by: GERMAN Heparin Sodium/Sodium Chloride (Heparin-1/2ns 25,000 Units/500) 25,000 unit in 500 mls @ 17.64 mls/hr IV TITRATE CASSIE; Protocol Last Admin: 03/03/20 00:45 Dose: 12 units/kg/hr, 17.64 mls/hr Documented by: GERMAN Cosigned by: IVERKAY Sodium Chloride (Saline Flush) 10 ml FLUSH ASDIRECTED PRN PRN Reason: Keep Vein Open Sodium Chloride (Saline Flush) 2.5 ml FLUSH ASDIRECTED PRN PRN Reason: Keep Vein Open Labs: Laboratory Tests 03/02/20 03/02/20 03/02/20 Range/Units 20:35 20:35 20:35 WBC 11.95 H (4.0-11.0) K/uL RBC 2.99 L (4.50-5.90) M/uL Hgb 8.7 L (13.0-17.0) g/dL Hct 26.6 L (38.0-50.0) % MCV 89.0 (80.0-98.0) fL MCH 29.1 (27.0-32.0) pg MCHC 32.7 (31.0-37.0) g/dL RDW Std Deviation 61.2 (28.0-62.0) fl RDW Coeff of Geoffrey 19 H (11.0-15.0) % Plt Count 202 (150-400) K/uL MPV 10.80 (7.40-12.00) fL Neut % (Auto) 80.3 H (48.0-80.0) % Lymph % (Auto) 9.8 L (16.0-40.0) % [place] % (Auto) 7.9 (0.0-15.0) % Eos % (Auto) 1.8 (0.0-7.0) % Baso % (Auto) 0.2 (0.0-1.5) % Neut # (Auto) 9.6 H (1.4-5.7) K/uL Lymph # (Auto) 1.2 (0.6-2.4) K/uL [place] # (Auto) 0.9 H (0.0-0.8) K/uL Eos # (Auto) 0.2 (0.0-0.7) K/uL Baso # (Auto) 0.0 (0.0-0.1) K/uL Nucleated RBC % 0.0 /100WBC Nucleated RBCs # 0 K/uL INR 1.09 D-Dimer, Quantitative (0.0-0.50) mg/L FEU VBG pH (7.31-7.41) VBG pCO2 (35-45) mmHG VBG pO2 (30-40) mmHG VBG HCO3 (22-30) mEq/L VBG Total CO2 (41-51) mmol/L VBG Base Excess (-3.0-3.0) Lactate 2.2 H* (0.20-2.00) mmol/L Sodium (136-148) mmol/L Potassium (3.5-5.1) mmol/L Chloride (98-107) mmol/L Carbon Dioxide (21.0-32.0) mmol/L BUN (7.0-18.0) mg/dL Creatinine (0.8-1.3) mg/dL Est Cr Clr Drug Dosing Estimated GFR (MDRD) ml/min Glucose (74-106) mg/dL Calcium (8.5-10.1) mg/dL Magnesium (1.8-2.4) mg/dL Total Bilirubin (0.2-1.0) mg/dL AST (15-37) IU/L ALT (14-63) IU/L Alkaline Phosphatase (46-116) U/L Creatine Kinase (26-308) U/L Troponin I (0.000-0.056) ng/mL Total Protein (6.4-8.2) g/dL Albumin (3.4-5.0) g/dL Globulin (2.6-4.0) g/dL Albumin/Globulin Ratio (0.9-1.6) SARS-CoV-2 RNA (KATHARINA) (NEGATIVE) Blood Type Antibody Screen 03/02/20 03/02/20 03/02/20 Range/Units 20:35 20:35 20:40 WBC (4.0-11.0) K/uL RBC (4.50-5.90) M/uL Hgb (13.0-17.0) g/dL Hct (38.0-50.0) % MCV (80.0-98.0) fL MCH (27.0-32.0) pg MCHC (31.0-37.0) g/dL RDW Std Deviation (28.0-62.0) fl RDW Coeff of Geoffrey (11.0-15.0) % Plt Count (150-400) K/uL MPV (7.40-12.00) fL Neut % (Auto) (48.0-80.0) % Lymph % (Auto) (16.0-40.0) % [place] % (Auto) (0.0-15.0) % Eos % (Auto) (0.0-7.0) % Baso % (Auto) (0.0-1.5) % Neut # (Auto) (1.4-5.7) K/uL Lymph # (Auto) (0.6-2.4) K/uL [place] # (Auto) (0.0-0.8) K/uL Eos # (Auto) (0.0-0.7) K/uL Baso # (Auto) (0.0-0.1) K/uL Nucleated RBC % /100WBC Nucleated RBCs # K/uL INR D-Dimer, Quantitative > 35.20 H (0.0-0.50) mg/L FEU VBG pH 7.36 (7.31-7.41) VBG pCO2 41 (35-45) mmHG VBG pO2 36 (30-40) mmHG VBG HCO3 23 (22-30) mEq/L VBG Total CO2 22 L (41-51) mmol/L VBG Base Excess -2.5 (-3.0-3.0) Lactate (0.20-2.00) mmol/L Sodium 138 (136-148) mmol/L Potassium 3.4 L (3.5-5.1) mmol/L Chloride 102 (98-107) mmol/L Carbon Dioxide 23.0 (21.0-32.0) mmol/L BUN 13 (7.0-18.0) mg/dL Creatinine 1.4 H (0.8-1.3) mg/dL Est Cr Clr Drug Dosing TNP Estimated GFR (MDRD) 49.3 ml/min Glucose 132 H (74-106) mg/dL Calcium 8.6 (8.5-10.1) mg/dL Magnesium 2.1 (1.8-2.4) mg/dL Total Bilirubin 1.1 H (0.2-1.0) mg/dL AST 30 (15-37) IU/L ALT 35 (14-63) IU/L Alkaline Phosphatase 97 (46-116) U/L Creatine Kinase 142 (26-308) U/L Troponin I < 0.050 (0.000-0.056) ng/mL Total Protein 6.5 (6.4-8.2) g/dL Albumin 2.5 L (3.4-5.0) g/dL Globulin 4.0 (2.6-4.0) g/dL Albumin/Globulin Ratio 0.6 L (0.9-1.6) SARS-CoV-2 RNA (KATHARINA) (NEGATIVE) Blood Type Antibody Screen 03/02/20 03/02/20 03/02/20 Range/Units 21:15 22:20 23:57 WBC (4.0-11.0) K/uL RBC (4.50-5.90) M/uL Hgb (13.0-17.0) g/dL Hct (38.0-50.0) % MCV (80.0-98.0) fL MCH (27.0-32.0) pg MCHC (31.0-37.0) g/dL RDW Std Deviation (28.0-62.0) fl RDW Coeff of Geoffrey (11.0-15.0) % Plt Count (150-400) K/uL MPV (7.40-12.00) fL Neut % (Auto) (48.0-80.0) % Lymph % (Auto) (16.0-40.0) % [place] % (Auto) (0.0-15.0) % Eos % (Auto) (0.0-7.0) % Baso % (Auto) (0.0-1.5) % Neut # (Auto) (1.4-5.7) K/uL Lymph # (Auto) (0.6-2.4) K/uL [place] # (Auto) (0.0-0.8) K/uL Eos # (Auto) (0.0-0.7) K/uL Baso # (Auto) (0.0-0.1) K/uL Nucleated RBC % /100WBC Nucleated RBCs # K/uL INR D-Dimer, Quantitative (0.0-0.50) mg/L FEU VBG pH (7.31-7.41) VBG pCO2 (35-45) mmHG VBG pO2 (30-40) mmHG VBG HCO3 (22-30) mEq/L VBG Total CO2 (41-51) mmol/L VBG Base Excess (-3.0-3.0) Lactate (0.20-2.00) mmol/L Sodium (136-148) mmol/L Potassium (3.5-5.1) mmol/L Chloride (98-107) mmol/L Carbon Dioxide (21.0-32.0) mmol/L BUN (7.0-18.0) mg/dL Creatinine (0.8-1.3) mg/dL Est Cr Clr Drug Dosing Estimated GFR (MDRD) ml/min Glucose (74-106) mg/dL Calcium (8.5-10.1) mg/dL Magnesium (1.8-2.4) mg/dL Total Bilirubin (0.2-1.0) mg/dL AST (15-37) IU/L ALT (14-63) IU/L Alkaline Phosphatase (46-116) U/L Creatine Kinase (26-308) U/L Troponin I 0.119 H* (0.000-0.056) ng/mL Total Protein (6.4-8.2) g/dL Albumin (3.4-5.0) g/dL Globulin (2.6-4.0) g/dL Albumin/Globulin Ratio (0.9-1.6) SARS-CoV-2 RNA (KATHARINA) NEGATIVE (NEGATIVE) Blood Type A POSITIVE Antibody Screen NEGATIVE Meds: Medications Generic Name Dose Route Start Last Admin Trade Name Archie PRN Reason Stop Dose Admin Albuterol/Ipratropium 3 ml 03/02/20 20:45 03/03/20 00:50 Duoneb 3.0-0.5 Mg/3 Ml NEB 3 ml Q2H CASSIE Administration Heparin Sodium/Sodium Chloride 25,000 unit in 500 mls @ 17.64 mls/hr 03/03/20 00:30 03/03/20 00:45 Heparin-1/2ns 25,000 Units/500 IV 12 units/kg/hr TITRATE CASSIE 17.64 mls/hr Administration Protocol 12 UNITS/KG/HR Sodium Chloride 10 ml 03/02/20 20:32 Saline Flush FLUSH ASDIRECTED PRN Keep Vein Open Sodium Chloride 2.5 ml 03/02/20 20:32 Saline Flush FLUSH ASDIRECTED PRN Keep Vein Open Discontinued Medications Generic Name Dose Route Start Last Admin Trade Name Archie PRN Reason Stop Dose Admin Acetaminophen 1,000 mg 03/02/20 23:27 03/02/20 23:31 Tylenol Extra Strength PO 03/02/20 23:28 1,000 mg ONETIME ONE Administration Aspirin 325 mg 03/03/20 00:49 03/03/20 00:59 Aspirin PO 03/03/20 00:50 325 mg ONETIME ONE Administration Digoxin 500 mcg 03/02/20 23:09 03/02/20 23:33 Lanoxin PO 03/02/20 23:10 500 mcg ONETIME ONE Administration Diltiazem HCl 5 mg 03/02/20 23:08 03/02/20 23:27 Diltiazem IVPUSH 03/02/20 23:09 5 mg ONETIME ONE Administration Sodium Chloride 500 mls @ 500 mls/hr 03/02/20 22:20 03/02/20 22:24 Normal Saline IV 03/02/20 23:19 500 mls/hr NOW STA Administration Iopamidol 100 ml 03/02/20 23:18 03/02/20 23:18 Isovue Multipack-370 (76%) IVPUSH 03/02/20 23:19 100 ml ONETIME STA Administration Methylprednisolone Sodium Succinate 40 mg 03/02/20 20:35 03/02/20 21:08 Solu-Medrol IVPUSH 03/02/20 20:36 40 mg ONETIME ONE Administration Metoprolol Tartrate 5 mg 03/02/20 22:00 03/02/20 22:15 Lopressor IVPUSH 03/02/20 22:01 5 mg ONETIME ONE Administration Potassium Chloride 40 meq 03/03/20 00:29 03/03/20 00:48 Potassium Chloride Solution PO 03/03/20 00:30 Not Given ONETIME ONE Potassium Chloride Confirm 03/03/20 00:37 03/03/20 00:48 Potassium Chloride Administered 03/03/20 00:38 40 meq Dose Administration 40 meq .ROUTE .STK-MED ONE Departure - Departure Time of Disposition: 01:08 Disposition: [facility] Condition: Serious Clinical Impression: Concussion with brief (less than one hour) loss of consciousness, Acute coronary syndrome, Left bundle branch block, NSTEMI (non-ST elevated myocardial infarction), Seizure Atrial fibrillation Qualifiers: Atrial fibrillation type: persistent (not longstanding) Qualified Code(s): I48.19 - Other persistent atrial fibrillation; I48.1 - Persistent atrial fibrillation Respiratory failure Qualifiers: Chronicity: acute Respiratory failure complication: hypoxia Qualified Code(s): J96.01 - Acute respiratory failure with hypoxia - Discharge Information *PRESCRIPTION DRUG MONITORING PROGRAM REVIEWED*: No *COPY OF PRESCRIPTION DRUG MONITORING REPORT IN PATIENT MARY: No Referrals: PCP,None [Primary Care Provider] - Forms: ED Department Discharge Sepsis Event Note (ED) - Evaluation Sepsis Screening Result: No Definite Risk - Focused Exam Vital Signs: Vital Signs Temp Pulse Pulse Resp BP BP Pulse Ox 03/03/20 00:45 82 18 102/62 95 03/03/20 00:20 36.3 C 98 18 110/70 95 03/02/20 23:33 116 H 03/02/20 23:19 118 H 20 115/83 95 03/02/20 22:25 114 H 20 98/69 98 03/02/20 22:15 150 H 117/68 96 03/02/20 21:25 35.8 C L 140 H 20 136/64 03/02/20 20:45 36.2 C 103 H 30 H 131/80 96 - My Orders Last 24 Hours: My Active Orders 03/02/20 20:32 Cardiac Monitoring [RC] . DIRECTED Pulse Oximetry [RC] ASDIRECTED Sodium Chloride 0.9% [Saline Flush] 10 ml FLUSH ASDIRECTED PRN Sodium Chloride 0.9% [Saline Flush] 2.5 ml FLUSH ASDIRECTED PRN Saline Lock Insert [OM.PC] Stat 03/02/20 20:33 EKG Documentation Completion [RC] STAT 03/02/20 20:35 RT Aerosol Therapy [RC] ASDIRECTED B-TYPE NATRIURETIC PEPTIDE,BNP [CHEM] Stat 03/02/20 20:45 Albuterol/Ipratropium [DuoNeb 3.0-0.5 MG/3 ML] 3 ml NEB Q2H 03/02/20 21:33 RT BiPAP/CPAP [RC] ASDIRECTED 03/03/20 00:30 Heparin Sod,Pork In 0.45% Nacl [Heparin-1/2Ns 25,000 Units/500] 25,000 unit in 500 ml IV TITRATE 03/03/20 00:42 PTT,PARTIAL THROMBOPLSTIN TIME [COAG] Stat - Assessment/Plan Last 24 Hours: My Active Orders 03/02/20 20:32 Cardiac Monitoring [RC] . DIRECTED Pulse Oximetry [RC] ASDIRECTED Sodium Chloride 0.9% [Saline Flush] 10 ml FLUSH ASDIRECTED PRN Sodium Chloride 0.9% [Saline Flush] 2.5 ml FLUSH ASDIRECTED PRN Saline Lock Insert [OM.PC] Stat 03/02/20 20:33 EKG Documentation Completion [RC] STAT 03/02/20 20:35 RT Aerosol Therapy [RC] ASDIRECTED B-TYPE NATRIURETIC PEPTIDE,BNP [CHEM] Stat 03/02/20 20:45 Albuterol/Ipratropium [DuoNeb 3.0-0.5 MG/3 ML] 3 ml NEB Q2H 03/02/20 21:33 RT BiPAP/CPAP [RC] ASDIRECTED 03/03/20 00:30 Heparin Sod,Pork In 0.45% Nacl [Heparin-1/2Ns 25,000 Units/500] 25,000 unit in 500 ml IV TITRATE 03/03/20 00:42 PTT,PARTIAL THROMBOPLSTIN TIME [COAG] Stat
[2020-03-02] MEDS ORDERED: Metoprolol Tartrate 5 MG/5 ML SDV IVPUSH ONE (22:00)
[2020-03-02] MEDS ORDERED: Sodium Chloride 0.9% 500 ML IV STA (22:20)
[2020-03-02] MEDS ORDERED: Diltiazem 25 MG/5 ML SDV IVPUSH ONE (23:08)
[2020-03-02] MEDS ORDERED: Digoxin 250 MCG Tab PO ONE (23:09)
[2020-03-02] MEDS ORDERED: Iopamidol 755 MG/ML 500 ML Multipack Bottle IVPUSH STA (23:18)
[2020-03-02] MEDS ORDERED: Acetaminophen 500 MG Tab PO ONE (23:27)
--- NOTE | 2020-03-03 00:11 | CT ---
INDICATION: Shortness of breath, elevated D-dimer TECHNIQUE: Contrast enhanced axial CT imaging through the chest, optimized for assessment of the pulmonary arterial tree. 100 mL Isovue 370 contrast agent was administered intravenously. Sagittal and coronal reconstructions are provided. COMPARISON: None FINDINGS: There is adequate opacification of the pulmonary arterial tree without evidence of thromboembolism. The main pulmonary artery is nondilated. The heart is non enlarged. Coronary calcifications are noted. There is no pericardial effusion. There is normal caliber of the thoracic aorta. There is no mediastinal lymphadenopathy. There is a moderate size right pleural effusion with mild adjacent compressive atelectasis. There is upper lobe predominant pulmonary emphysema with subpleural bullous changes more pronounced in the right lung apex. Mild diffuse interstitial thickening is consistent with edema. There are chronic vertebral compression deformities of the T4 and T8 vertebral bodies with mild height loss at T4 and moderate-severe loss at T8. No significant abnormality is demonstrated in the visualized upper abdomen. IMPRESSION: 1. Moderate-size right pleural effusion with mild adjacent atelectasis. Mild pulmonary special edema. Pulmonary emphysema. 2. No evidence of pulmonary thromboembolism. Please note that all CT scans at this facility use dose modulation, iterative reconstruction, and/or weight-based dosing when appropriate to reduce radiation dose to as low as reasonably achievable. Dictated by Joseluis Mcintyre MD @ Mar 02 2020 11:52PM Signed by Dr. Joseluis Mcintyre @ Mar 03 2020 12:08AM
[2020-03-03] MEDS ORDERED: Potassium Chloride 10% 20 MEQ/15 ML Soln 15 ML UD Cup PO ONE (00:29)
[2020-03-03] MEDS ORDERED: Heparin Sod,Pork In 0.45% Nacl 25,000 UNIT/500 ML IV.SOLN IV SCH (00:30)
[2020-03-03] MEDS ORDERED: Potassium Chloride 10% 20 MEQ/15 ML Soln 30 ML UD Cup ONE (00:37)
[2020-03-03] MEDS ORDERED: Aspirin 325 MG Tab PO ONE (00:49)
[2020-03-03] MEDS: Albuterol/Ipratropium 3.0-0.5 MG/3 ML Neb Soln NEB SCH (00:50)
[2020-03-03 01:07] VITALS: BP 151/79; PULSE 77
== END 2020-03-03 01:35 ==
LOC: MW.ED 20:24
DX: S06.0X1A Concussion with loss of consciousness of 30 minutes or less, initial encounter (principal); I44.7 Left bundle-branch block, unspecified; I21.4 Non-ST elevation (NSTEMI) myocardial infarction; I24.9 Acute ischemic heart disease, unspecified; I48.19 Other persistent atrial fibrillation; J96.01 Acute respiratory failure with hypoxia; G40.409 Other generalized epilepsy and epileptic syndromes, not intractable, without status epilepticus; I10 Essential (primary) hypertension; J90 Pleural effusion, not elsewhere classified; R79.89 Other specified abnormal findings of blood chemistry; E87.6 Hypokalemia; E78.00 Pure hypercholesterolemia, unspecified; Z20.828 Contact with and (suspected) exposure to other viral communicable diseases; Z79.82 Long term (current) use of aspirin; Z79.02 Long term (current) use of antithrombotics/antiplatelets; Z79.899 Other long term (current) drug therapy; Z95.5 Presence of coronary angioplasty implant and graft; W01.10XA Fall on same level from slipping, tripping and stumbling with subsequent striking against unspecified object, initial encounter
CPT/HCPCS: 36415; 70450; 71045; 71275; 72125; 72170; 80053; 82550; 82803; 83605; 83735; 83880; 84484; 85025; 85379; 85610; 85730; 86850; 86900; 86901; 87635; 93005; 94660; 96361; 96365; 96375; 99291; A9270; G0390; J1644; J2920; J3490; J7040; Q9967; J7620-GY; U0002

== ENCOUNTER 2020-04-02 18:34 | Inpatient (IN) | payer OTHER ==
[2020-04-02] MEDS ORDERED: Ondansetron 4 MG/2 ML SDV ONE (18:39)
[2020-04-02] MEDS ORDERED: Ondansetron 4 MG/2 ML SDV IVPUSH ONE ×2 (18:44→22:10)
--- NOTE | 2020-04-02 19:28 | EDM.PDOC ---
ED HPI GENERAL MEDICAL PROBLEM - General Chief Complaint: Gastrointestinal Problem Stated Complaint: DIZZY, SWEATINESS Time Seen by Provider: 04/02/20 19:04 Source of Information: Reports: Patient History Limitations: Reports: No Limitations - History of Present Illness INITIAL COMMENTS - FREE TEXT/NARRATIVE: Patient is a 74-year-old male who presents today for nausea vomiting. Patient also complains of back pain. Patient did fall 1 month ago and then went back and was seen here and transferred out after the fall. Patient states that the past few hours she is happy with tolerating by mouth. Patient denies any abdominal pain weakness fatigue or chest pain. Patient is very bradycardic on the monitor going down to 35 but heart rate does increase back up to 70 patient is not symptomatic. lower back Pain Score (Numeric/FACES): 10 - Related Data Allergies Allergy/AdvReac Type Severity Reaction Status Date / Time No Known Allergies Allergy Verified 04/02/20 18:37 Home Meds: Home Meds Aspirin [Low Dose Aspirin EC] 81 tab PO DAILY 09/05/18 [History] Clopidogrel [Plavix] 75 mg PO DAILY 09/05/18 [History] Lisinopril 20 mg PO DAILY 09/05/18 [History] Metoprolol Succinate [Toprol XL 50mg] 50 mg PO DAILY 09/05/18 [History] Omeprazole 20 mg PO ASDIRECTED 09/05/18 [History] atorvaSTATin Calcium [Atorvastatin Calcium] 80 mg PO DAILY 09/05/18 [History] Albuterol Sulfate [Proair Digihaler] 2 puff IH ASDIRECTED PRN 03/03/20 [History] Budesonide/Formoterol [Symbicort 160-4.5 MCG] 2 puff INH BID 03/03/20 [History] Nitroglycerin [Nitrostat] 1 tab SL ASDIRECTED PRN 03/03/20 [History] Non-Formulary Medication [NF Drug] 1 each PO ASDIRECTED PRN 04/02/20 [History] Past Medical History HEENT History: Reports: None Cardiovascular History: Reports: High Cholesterol, Hypertension, [place], Stents, Other (See Below) Other Cardiovascular History: nuclear stress test Respiratory History: Reports: Other (See Below) Other Respiratory History: polyp in lung Gastrointestinal History: Reports: None Genitourinary History: Reports: None Musculoskeletal History: Reports: Back Pain, Chronic, Other (See Below) Other Musculoskeletal History: lumbar fxs Neurological History: Reports: None Psychiatric History: Reports: None Endocrine/Metabolic History: Reports: None Hematologic History: Reports: None Immunologic History: Reports: None Oncologic (Cancer) History: Reports: None - Infectious Disease History Infectious Disease History: Reports: None - Past Surgical History Head Surgeries/Procedures: Reports: None HEENT Surgical History: Reports: None Cardiovascular Surgical History: Reports: Coronary Artery Stent, Other (See Below) Other Cardiovascular Surgeries/Procedures: 5 stents Respiratory Surgical History: Reports: None Male Surgical History: Reports: None Neurological Surgical History: Reports: Other (See Below) Other Neurological Surgeries/Procedures: 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 Musculoskeletal Surgical History: Reports: None Social & Family History - Family History Family Medical History: No Pertinent Family History HEENT: Reports: None - Tobacco Use Tobacco Use Status *Q: Current Every Day Tobacco User Years of Tobacco use: 50 Packs/Tins Daily: 1 - Caffeine Use Caffeine Use: Reports: Coffee - Recreational Drug Use Recreational Drug Use: No ED ROS GENERAL - Review of Systems Review Of Systems: See Below Constitutional: Reports: No Symptoms HEENT: Reports: No Symptoms Respiratory: Reports: No Symptoms Cardiovascular: Reports: No Symptoms Endocrine: Reports: No Symptoms GI/Abdominal: Reports: Nausea, Vomiting : Reports: No Symptoms Musculoskeletal: Reports: Back Pain Skin: Reports: No Symptoms Neurological: Reports: No Symptoms Psychiatric: Reports: No Symptoms Hematologic/Lymphatic: Reports: No Symptoms Immunologic: Reports: No Symptoms ED EXAM, GENERAL - Physical Exam Exam: See Below Exam Limited By: No Limitations General Appearance: Alert, No Apparent Distress Eye Exam: Bilateral Eye: EOMI, PERRL Head: Atraumatic Respiratory/Chest: No Respiratory Distress, Lungs Clear, Normal Breath Sounds Cardiovascular: Normal Peripheral Pulses, Regular Rate, Rhythm GI/Abdominal: Normal Bowel Sounds, Soft, Non-Tender Back Exam: Normal Inspection. No: Vertebral Tenderness Extremities: Normal Range of Motion Neurological: Alert, Oriented, CN II-XII Intact, Normal Cognition #1 Interpretation EKG Date: 04/02/20 Time: 07:00 Rhythm: Other (sinus [place]) Rate (Beats/Min): 34 QRS: LBBB Course - Vital Signs Last Recorded V/S: Last Vital Signs Temp 95.3 F L 04/02/20 21:23 Pulse 46 L 04/02/20 21:23 Resp 16 04/02/20 21:23 BP 141/46 H 04/02/20 21:23 Pulse Ox 99 04/02/20 21:23 - Orders/Labs/Meds Orders: Active Orders 24 hr Category Date Time Status Patient Status [ADT] Routine ADT 04/02/20 22:14 Ordered Communication Order [RC] STAT Care 04/02/20 21:25 Active CULTURE URINE [RM] Stat Lab 04/02/20 21:27 Received STOOL CULTURE/SHIGA TOXIN [MREF] Stat Lab 04/02/20 21:37 Received Sodium Chloride 0.9% [Normal Saline] 1,000 ml Med 04/02/20 21:00 Active IV ASDIRECTED Medication Orders Sodium Chloride (Normal Saline) 1,000 mls @ 999 mls/hr IV ASDIRECTED CASSIE Last Admin: 04/02/20 20:53 Dose: 999 mls/hr Documented by: SEVERO Labs: Laboratory Tests 04/02/20 04/02/20 04/02/20 Range/Units 18:48 18:48 18:48 WBC 7.54 (4.0-11.0) K/uL RBC 3.62 L (4.50-5.90) M/uL Hgb 10.2 L (13.0-17.0) g/dL Hct 32.6 L (38.0-50.0) % MCV 90.1 (80.0-98.0) fL MCH 28.2 (27.0-32.0) pg MCHC 31.3 (31.0-37.0) g/dL RDW Std Deviation 61.2 (28.0-62.0) fl RDW Coeff of Geoffrey 18 H (11.0-15.0) % Plt Count 218 (150-400) K/uL MPV 10.50 (7.40-12.00) fL Neut % (Auto) 74.6 (48.0-80.0) % Lymph % (Auto) 15.8 L (16.0-40.0) % Spencer % (Auto) 7.2 (0.0-15.0) % Eos % (Auto) 2.3 (0.0-7.0) % Baso % (Auto) 0.1 (0.0-1.5) % Neut # (Auto) 5.6 (1.4-5.7) K/uL Lymph # (Auto) 1.2 (0.6-2.4) K/uL Spencer # (Auto) 0.5 (0.0-0.8) K/uL Eos # (Auto) 0.2 (0.0-0.7) K/uL Baso # (Auto) 0.0 (0.0-0.1) K/uL Nucleated RBC % 0.0 /100WBC Nucleated RBCs # 0 K/uL Lactate (0.20-2.00) mmol/L Sodium 135 L (136-148) mmol/L Potassium 4.5 (3.5-5.1) mmol/L Chloride 101 (98-107) mmol/L Carbon Dioxide 19.6 L (21.0-32.0) mmol/L BUN 38 H (7.0-18.0) mg/dL Creatinine 3.4 H (0.8-1.3) mg/dL Est Cr Clr Drug Dosing 14.27 mL/min Estimated GFR (MDRD) 17.7 ml/min Glucose 223 H (74-106) mg/dL Calcium 9.3 (8.5-10.1) mg/dL Phosphorus (2.6-4.7) mg/dL Magnesium (1.8-2.4) mg/dL Total Bilirubin 0.4 (0.2-1.0) mg/dL AST 17 (15-37) IU/L ALT 17 (14-63) IU/L Alkaline Phosphatase 167 H (46-116) U/L Creatine Kinase (26-308) U/L Troponin I (0.000-0.056) ng/mL B-Natriuretic Peptide 26 (<100) PG/ML Total Protein 7.2 (6.4-8.2) g/dL Albumin 2.5 L (3.4-5.0) g/dL Globulin 4.7 H (2.6-4.0) g/dL Albumin/Globulin Ratio 0.5 L (0.9-1.6) Lipase 88 (73-393) U/L Urine Color Urine Appearance Urine pH (5.0-8.0) Ur Specific [place] (1.001-1.035) Urine Protein (NEGATIVE) mg/dL Urine Glucose (UA) (NEGATIVE) mg/dL Urine Ketones (NEGATIVE) mg/dL Urine Occult Blood (NEGATIVE) Urine Nitrite (NEGATIVE) Urine Bilirubin (NEGATIVE) Urine Urobilinogen (<2.0) EU/dL Ur Leukocyte Esterase (NEGATIVE) U Hyaline Cast (Auto) (0-2/LPF) Urine RBC (0-2/HPF) Urine WBC (0-5/HPF) Ur Epithelial Cells (NONE-FEW) Amorphous Sediment (NEGATIVE) Urine Bacteria (NEGATIVE) Urine Mucus (NONE-MOD) Ur Random Creatinine mg/dL Ur Random Sodium (40.0-220.0) mmol/L SARS-CoV-2 RNA (KATHARINA) (NEGATIVE) 04/02/20 04/02/20 04/02/20 Range/Units 18:48 19:42 21:00 WBC (4.0-11.0) K/uL RBC (4.50-5.90) M/uL Hgb (13.0-17.0) g/dL Hct (38.0-50.0) % MCV (80.0-98.0) fL MCH (27.0-32.0) pg MCHC (31.0-37.0) g/dL RDW Std Deviation (28.0-62.0) fl RDW Coeff of Geoffrey (11.0-15.0) % Plt Count (150-400) K/uL MPV (7.40-12.00) fL Neut % (Auto) (48.0-80.0) % Lymph % (Auto) (16.0-40.0) % Spencer % (Auto) (0.0-15.0) % Eos % (Auto) (0.0-7.0) % Baso % (Auto) (0.0-1.5) % Neut # (Auto) (1.4-5.7) K/uL Lymph # (Auto) (0.6-2.4) K/uL Spencer # (Auto) (0.0-0.8) K/uL Eos # (Auto) (0.0-0.7) K/uL Baso # (Auto) (0.0-0.1) K/uL Nucleated RBC % /100WBC Nucleated RBCs # K/uL Lactate 4.8 H* (0.20-2.00) mmol/L Sodium (136-148) mmol/L Potassium (3.5-5.1) mmol/L Chloride (98-107) mmol/L Carbon Dioxide (21.0-32.0) mmol/L BUN (7.0-18.0) mg/dL Creatinine (0.8-1.3) mg/dL Est Cr Clr Drug Dosing mL/min Estimated GFR (MDRD) ml/min Glucose (74-106) mg/dL Calcium (8.5-10.1) mg/dL Phosphorus 5.0 H (2.6-4.7) mg/dL Magnesium 1.9 (1.8-2.4) mg/dL Total Bilirubin (0.2-1.0) mg/dL AST (15-37) IU/L ALT (14-63) IU/L Alkaline Phosphatase (46-116) U/L Creatine Kinase 49 (26-308) U/L Troponin I < 0.050 (0.000-0.056) ng/mL B-Natriuretic Peptide (<100) PG/ML Total Protein (6.4-8.2) g/dL Albumin (3.4-5.0) g/dL Globulin (2.6-4.0) g/dL Albumin/Globulin Ratio (0.9-1.6) Lipase (73-393) U/L Urine Color Urine Appearance Urine pH (5.0-8.0) Ur Specific [place] (1.001-1.035) Urine Protein (NEGATIVE) mg/dL Urine Glucose (UA) (NEGATIVE) mg/dL Urine Ketones (NEGATIVE) mg/dL Urine Occult Blood (NEGATIVE) Urine Nitrite (NEGATIVE) Urine Bilirubin (NEGATIVE) Urine Urobilinogen (<2.0) EU/dL Ur Leukocyte Esterase (NEGATIVE) U Hyaline Cast (Auto) (0-2/LPF) Urine RBC (0-2/HPF) Urine WBC (0-5/HPF) Ur Epithelial Cells (NONE-FEW) Amorphous Sediment (NEGATIVE) Urine Bacteria (NEGATIVE) Urine Mucus (NONE-MOD) Ur Random Creatinine mg/dL Ur Random Sodium (40.0-220.0) mmol/L SARS-CoV-2 RNA (KATHARINA) NEGATIVE (NEGATIVE) 04/02/20 04/02/20 04/02/20 Range/Units 21:27 21:27 21:29 WBC (4.0-11.0) K/uL RBC (4.50-5.90) M/uL Hgb (13.0-17.0) g/dL Hct (38.0-50.0) % MCV (80.0-98.0) fL MCH (27.0-32.0) pg MCHC (31.0-37.0) g/dL RDW Std Deviation (28.0-62.0) fl RDW Coeff of Geoffrey (11.0-15.0) % Plt Count (150-400) K/uL MPV (7.40-12.00) fL Neut % (Auto) (48.0-80.0) % Lymph % (Auto) (16.0-40.0) % Spencer % (Auto) (0.0-15.0) % Eos % (Auto) (0.0-7.0) % Baso % (Auto) (0.0-1.5) % Neut # (Auto) (1.4-5.7) K/uL Lymph # (Auto) (0.6-2.4) K/uL Spencer # (Auto) (0.0-0.8) K/uL Eos # (Auto) (0.0-0.7) K/uL Baso # (Auto) (0.0-0.1) K/uL Nucleated RBC % /100WBC Nucleated RBCs # K/uL Lactate 1.6 (0.20-2.00) mmol/L Sodium (136-148) mmol/L Potassium (3.5-5.1) mmol/L Chloride (98-107) mmol/L Carbon Dioxide (21.0-32.0) mmol/L BUN (7.0-18.0) mg/dL Creatinine (0.8-1.3) mg/dL Est Cr Clr Drug Dosing mL/min Estimated GFR (MDRD) ml/min Glucose (74-106) mg/dL Calcium (8.5-10.1) mg/dL Phosphorus (2.6-4.7) mg/dL Magnesium (1.8-2.4) mg/dL Total Bilirubin (0.2-1.0) mg/dL AST (15-37) IU/L ALT (14-63) IU/L Alkaline Phosphatase (46-116) U/L Creatine Kinase (26-308) U/L Troponin I (0.000-0.056) ng/mL B-Natriuretic Peptide (<100) PG/ML Total Protein (6.4-8.2) g/dL Albumin (3.4-5.0) g/dL Globulin (2.6-4.0) g/dL Albumin/Globulin Ratio (0.9-1.6) Lipase (73-393) U/L Urine Color YELLOW Urine Appearance SLT CLOUDY Urine pH 5.5 (5.0-8.0) Ur Specific [place] 1.025 (1.001-1.035) Urine Protein TRACE H (NEGATIVE) mg/dL Urine Glucose (UA) NEGATIVE (NEGATIVE) mg/dL Urine Ketones TRACE H (NEGATIVE) mg/dL Urine Occult Blood TRACE-INTACT H (NEGATIVE) Urine Nitrite NEGATIVE (NEGATIVE) Urine Bilirubin SMALL H (NEGATIVE) Urine Urobilinogen 2.0 H (<2.0) EU/dL Ur Leukocyte Esterase TRACE H (NEGATIVE) U Hyaline Cast (Auto) 2-4 (0-2/LPF) Urine RBC 2-4 (0-2/HPF) Urine WBC 1-3 (0-5/HPF) Ur Epithelial Cells FEW (NONE-FEW) Amorphous Sediment LIGHT (NEGATIVE) Urine Bacteria FEW (NEGATIVE) Urine Mucus LIGHT (NONE-MOD) Ur Random Creatinine 170.2 mg/dL Ur Random Sodium 17.0 L (40.0-220.0) mmol/L SARS-CoV-2 RNA (KATHARINA) (NEGATIVE) Meds: Medications Generic Name Dose Route Start Last Admin Trade Name Freq PRN Reason Stop Dose Admin Sodium Chloride 1,000 mls @ 999 mls/hr 04/02/20 21:00 04/02/20 20:53 Normal Saline IV 999 mls/hr ASDIRECTED CASSIE Administration Discontinued Medications Generic Name Dose Route Start Last Admin Trade Name Freq PRN Reason Stop Dose Admin Glucagon 5 mg 04/02/20 20:11 Glucagen IV 04/02/20 20:12 ONETIME ONE Ondansetron HCl Confirm 04/02/20 18:39 04/02/20 18:45 Zofran Administered 04/02/20 18:40 Not Given Dose 4 mg .ROUTE .STK-MED ONE Ondansetron HCl 4 mg 04/02/20 18:44 04/02/20 18:47 Zofran IVPUSH 04/02/20 18:45 4 mg ONETIME ONE Administration Ondansetron HCl 4 mg 04/02/20 22:10 Zofran IVPUSH 04/02/20 22:11 ONETIME ONE - Re-Assessments/Exams Free Text/Narrative Re-Assessment/Exam: 04/02/20 22:14 And had a temperature of 90 F. Patient was given warm IV fluids and placed on a bear hugger. Patient temperature is improving as well as heart rate. Patient heart rate possibly due to hypothermia. We spoke to hospitalist who will admit patient here. Patient also has some ZACHERY on labs and had elevated lactate that is being corrected with IV fluids. Patient remains asymptomatic. Departure - Departure Time of Disposition: 22:15 Disposition: Admitted As Inpatient 64 Condition: Good Clinical Impression: ZACHERY (acute kidney injury), Bradycardia - Discharge Information *PRESCRIPTION DRUG MONITORING PROGRAM REVIEWED*: Not Applicable *COPY OF PRESCRIPTION DRUG MONITORING REPORT IN PATIENT MARY: Not Applicable Referrals: Seymour Tyler PATIENT SAFETY COORDINATOR [Primary Care Provider] - Forms: ED Department Discharge Sepsis Event Note (ED) - Evaluation Sepsis Screening Result: No Definite Risk - Focused Exam Vital Signs: Vital Signs Temp Temp Temp Pulse Resp BP Pulse Ox 04/02/20 21:23 95.3 F L 46 L 16 141/46 H 99 04/02/20 20:00 93.3 F L 44 L 16 92/56 L 99 04/02/20 19:33 90.1 F L 38 L 16 128/50 L 98 04/02/20 19:17 96.1 F L 70 98 04/02/20 18:52 80/56 L 04/02/20 18:39 95.4 F L 88 22 H 79/34 L 100 - My Orders Last 24 Hours: My Active Orders 04/02/20 21:00 Sodium Chloride 0.9% [Normal Saline] 1,000 ml IV ASDIRECTED 04/02/20 21:25 Communication Order [RC] STAT 04/02/20 21:37 STOOL CULTURE/SHIGA TOXIN [MREF] Stat 04/02/20 22:14 Patient Status [ADT] Routine - Assessment/Plan Last 24 Hours: My Active Orders 04/02/20 21:00 Sodium Chloride 0.9% [Normal Saline] 1,000 ml IV ASDIRECTED 04/02/20 21:25 Communication Order [RC] STAT 04/02/20 21:37 STOOL CULTURE/SHIGA TOXIN [MREF] Stat 04/02/20 22:14 Patient Status [ADT] Routine Plan: 74-year-old male who presents today for nausea vomiting. Patient is also very bradycardic on monitor but not symptomatic. EKG shows sinus bradycardia with left bundle branch block. Will obtain labs and reassess.
[2020-04-02 19:30] LABS: CARBON DIOXIDE,CO2 19.6 mmol/L (21.0-32.0)
[2020-04-02 19:36] LABS: POTASSIUM,K 4.5 mmol/L (3.5-5.1)
[2020-04-02] MEDS ORDERED: Glucagon,Human Recombinant 1 MG Vial IV ONE (20:11)
[2020-04-02] MEDS ORDERED: Sodium Chloride 0.9% 1,000 ML IV SCH (21:00)
--- NOTE | 2020-04-02 22:06 | CR ---
INDICATION: Shortness of breath TECHNIQUE: Chest radiograph 1 view COMPARISON: 03/02/2020 FINDINGS: Mediastinum: The mediastinum is normal in appearance. The heart silhouette is normal in size and morphology. Lung: Both lungs are unremarkable in appearance. The right mid chest is obscured by a defibrillator pad. No sign of pleural effusion seen. No pneumothorax is identified. Bone and Soft tissue: Unremarkable for age. IMPRESSION: 1. No acute cardiopulmonary disease is seen. Dictated by: Herb Quiros MD @ 04/02/2020 22:05:37 (Electronically Signed)
[2020-04-03] MEDS ORDERED: Ondansetron 4 MG/2 ML SDV IVPUSH PRN ×2 (00:17→15:23)
[2020-04-03] MEDS ORDERED: Pantoprazole 40 MG in Sodium Chloride 0.9% 10 ML IV ONE (00:17)
[2020-04-03] MEDS ORDERED: Lactated Ringers 1,000 ML IV SCH (00:30)
[2020-04-03] MEDS: Vancomycin 125 MG Cap PO SCH ×4 (01:15→18:37)
[2020-04-03] MEDS: Pantoprazole 40 MG in Sodium Chloride 0.9% 10 ML IV SCH ×2 (01:15→09:10)
[2020-04-03] MEDS: cefTRIAXone 1 GM in Premix Bag 1 BAG IV SCH (01:16)
[2020-04-03] MEDS: Morphine 2 MG/ML SYRINGE IVPUSH PRN (06:29)
[2020-04-03] MEDS ORDERED: ALBUTEROL SULFATE INH PRN (08:01)
--- NOTE | 2020-04-03 08:02 | PCM.HP.2 ---
H&P History of Present Illness - General Date of Service: 04/03/20 Admit Problem/Dx: Admission Diagnosis/Problem Admission Diagnosis/Problem Bradycardia Source of Information: Patient History Limitations: Reports: No Limitations - History of Present Illness Initial Comments - Free Text/Narative: This 74-year-old male with significant complex medical history which includes r ecent anterior communicating artery aneurysm coiling in [place], CAD with multiple stents, hypertension, carotid stenting, atrial fibrillation and COPD presented to the ER with complaints of nausea vomiting and otherwise not feeling well. He reports he has been having constant diarrhea the past 1 day with some mild abdominal cramping prior to having a bowel movement. He denies any recent travel other than being in [place] for medical care. Denies any recent antibiotic use that he is aware of. No other sick contacts. He reports he has not been able to eat or drink much the last day having some nausea and vomiting. Diarrhea is very loose mucousy blood-tinged. He denies any chest pain shortness of breath or palpitations. No headache fever neck pain throat or sinus congestion. Denies any trouble urinating. Reports some overall mild generalized weakness. No swelling to his feet or ankles. He reports he quit smoking many years ago denies any recreational drug use and no alcohol use. While in the ER no leukocytosis was noted hemoglobin 10.2 hematocrit 32.6. Lactic acid elevated at 4.8. Bicarb 19.6 BUN 38 creatinine 3.4. FENA 0.25% no ATN noted likely prerenal. TSH 4.81 troponin was negative Covid negative chest x-ray was negative stool studies obtained showing C. difficile antigen positive toxin negative PCR will be sent. Hemoccult also positive. UTI noted with trace leukocyte esterase and pyuria of 1-4. He was also noted to be bradycardic in the ER 30s to 40s. He was also noted to be hypotensive along with hypothermic. He was given calcium gluconate along with warmed IV fluids and Nereida hugger. Temperature improved And heart rate improved with IV fluids. Lactic acid normalized after IV fluid resuscitation. He was started on Rocephin as well as vancomycin. He will be admitted for sepsis, C. difficile colitis, and UTI. [facility] in [place] on February 2020 revealed no pulmonary hypertension and EF was 60 to 65%. lower back Pain Score (Numeric/FACES): 2 - Related Data Allergies/Adverse Reactions: Allergies Allergy/AdvReac Type Severity Reaction Status Date / Time No Known Allergies Allergy Verified 04/03/20 08:40 Home Medications: Home Meds Aspirin [Low Dose Aspirin EC] 81 tab PO DAILY 09/05/18 [History] Clopidogrel [Plavix] 75 mg PO BEDTIME 09/05/18 [History] Lisinopril 40 mg PO DAILY 09/05/18 [History] Omeprazole 20 mg PO DAILY 09/05/18 [History] atorvaSTATin Calcium [Atorvastatin Calcium] 80 mg PO BEDTIME 09/05/18 [History] Albuterol Sulfate [Proair Digihaler] 2 puff IH Q6H PRN 03/03/20 [History] Budesonide/Formoterol [Symbicort 160-4.5 MCG] 2 puff INH Q12H 03/03/20 [History] Nitroglycerin [Nitrostat] 0.4 mg SL .EVERY 5 MINUTES PRN MDD 3 tablets 03/03/20 [History] Furosemide 20 mg PO DAILY 04/03/20 [History] Lidocaine 5% [Lidoderm 5%] 2 patch TOP Q24H MDD on x 12 hrs, off x 12 hrs 04/03/20 [History] Screven-3 Fatty Acids/Fish Oil [Fish Oil 1,000 mg Capsule] 1,000 mg PO TID 04/03/20 [History] Potassium Chloride [Klor-Con M20] 20 meq PO DAILY 04/03/20 [History] dilTIAZem HCL [Diltiazem 24Hr ER (Cd)] 240 mg PO DAILY 04/03/20 [History] traMADol HCl [Tramadol HCl] 50 mg PO BID PRN 04/03/20 [History] Past Medical History HEENT History: Reports: None Cardiovascular History: Reports: Afib, High Cholesterol, Hypertension, [place], Stents, Other (See Below) Other Cardiovascular History: nuclear stress test Respiratory History: Reports: Other (See Below) Other Respiratory History: polyp in lung Gastrointestinal History: Reports: None Genitourinary History: Reports: None Musculoskeletal History: Reports: Back Pain, Chronic, Other (See Below) Other Musculoskeletal History: lumbar fxs Neurological History: Reports: None Psychiatric History: Reports: None Endocrine/Metabolic History: Reports: None Hematologic History: Reports: None Immunologic History: Reports: None Oncologic (Cancer) History: Reports: None - Infectious Disease History Infectious Disease History: Reports: None - Past Surgical History Head Surgeries/Procedures: Reports: None HEENT Surgical History: Reports: None Cardiovascular Surgical History: Reports: Coronary Artery Stent, Other (See Below) Other Cardiovascular Surgeries/Procedures: 5 stents Respiratory Surgical History: Reports: None Male Surgical History: Reports: None Neurological Surgical History: Reports: Other (See Below) Other Neurological Surgeries/Procedures: 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 Denies: Fever, Chills HEENT: Denies: Headaches, Sinus Congestion, Sore Throat, Vertigo Pulmonary: Reports: No Symptoms. Denies: Shortness of Breath Cardiovascular: Reports: No Symptoms. Denies: Chest Pain, Edema, Syncope Gastrointestinal: Reports: Abdominal Pain, Bloody Stool, Diarrhea, Decreased Appetite, Nausea, Vomiting Genitourinary: Reports: No Symptoms. Denies: Dysuria, Frequency, Burning Musculoskeletal: Reports: No Symptoms. Denies: Neck Pain, Back Pain Skin: Reports: No Symptoms Psychiatric: Reports: No Symptoms. Denies: Depression, Anxiety Neurological: Reports: No Symptoms. Denies: Confusion Hematologic/Lymphatic: Reports: No Symptoms Immunologic: Reports: No Symptoms Exam - Exam Exam: See Below - Vital Signs Vital Signs: Last Vital Signs Temp 99.7 F 04/03/20 04:15 Pulse 62 04/03/20 04:15 Resp 16 04/03/20 04:15 BP 174/70 H 04/03/20 04:15 Pulse Ox 98 04/03/20 04:15 Weight: 49.442 kg - Exam General: Alert, Oriented, Cooperative HEENT: Conjunctiva Clear, Posterior Pharynx Clear. No: Mucosa Moist & Rosa (Dry) Lungs: Clear to Auscultation, Normal Respiratory Effort Cardiovascular: Regular Rate, Regular Rhythm GI/Abdominal Exam: Normal Bowel Sounds, Soft, Non-Tender Back Exam: Normal Inspection, Full Range of Motion Extremities: Normal Inspection, Normal Range of Motion, Non-Tender, No Pedal Edema Skin: Warm, Dry, Intact Neuro Extensive - Mental Status: Alert, Oriented x3 Psychiatric: Alert, Normal Affect, Normal Mood - Patient Data Lab Results Last 24 hrs: Laboratory Results - last 24 hr 04/02/20 04/02/20 04/02/20 Range/Units 18:48 18:48 18:48 WBC 7.54 (4.0-11.0) K/uL RBC 3.62 L (4.50-5.90) M/uL Hgb 10.2 L (13.0-17.0) g/dL Hct 32.6 L (38.0-50.0) % MCV 90.1 (80.0-98.0) fL MCH 28.2 (27.0-32.0) pg MCHC 31.3 (31.0-37.0) g/dL RDW Std Deviation 61.2 (28.0-62.0) fl RDW Coeff of Geoffrey 18 H (11.0-15.0) % Plt Count 218 (150-400) K/uL MPV 10.50 (7.40-12.00) fL Neut % (Auto) 74.6 (48.0-80.0) % Lymph % (Auto) 15.8 L (16.0-40.0) % Imperial % (Auto) 7.2 (0.0-15.0) % Eos % (Auto) 2.3 (0.0-7.0) % Baso % (Auto) 0.1 (0.0-1.5) % Neut # (Auto) 5.6 (1.4-5.7) K/uL Lymph # (Auto) 1.2 (0.6-2.4) K/uL Imperial # (Auto) 0.5 (0.0-0.8) K/uL Eos # (Auto) 0.2 (0.0-0.7) K/uL Baso # (Auto) 0.0 (0.0-0.1) K/uL Nucleated RBC % 0.0 /100WBC Nucleated RBCs # 0 K/uL Lactate (0.20-2.00) mmol/L Sodium 135 L (136-148) mmol/L Potassium 4.5 (3.5-5.1) mmol/L Chloride 101 (98-107) mmol/L Carbon Dioxide 19.6 L (21.0-32.0) mmol/L BUN 38 H (7.0-18.0) mg/dL Creatinine 3.4 H (0.8-1.3) mg/dL Est Cr Clr Drug Dosing 14.27 mL/min Estimated GFR (MDRD) 17.7 ml/min Glucose 223 H (74-106) mg/dL Calcium 9.3 (8.5-10.1) mg/dL Phosphorus (2.6-4.7) mg/dL Magnesium (1.8-2.4) mg/dL Total Bilirubin 0.4 (0.2-1.0) mg/dL AST 17 (15-37) IU/L ALT 17 (14-63) IU/L Alkaline Phosphatase 167 H (46-116) U/L Creatine Kinase (26-308) U/L Troponin I (0.000-0.056) ng/mL B-Natriuretic Peptide 26 (<100) PG/ML Total Protein 7.2 (6.4-8.2) g/dL Albumin 2.5 L (3.4-5.0) g/dL Globulin 4.7 H (2.6-4.0) g/dL Albumin/Globulin Ratio 0.5 L (0.9-1.6) Lipase 88 (73-393) U/L TSH 3rd Generation (0.36-3.74) uIU/mL Urine Color Urine Appearance Urine pH (5.0-8.0) Ur Specific Adams (1.001-1.035) Urine Protein (NEGATIVE) mg/dL Urine Glucose (UA) (NEGATIVE) mg/dL Urine Ketones (NEGATIVE) mg/dL Urine Occult Blood (NEGATIVE) Urine Nitrite (NEGATIVE) Urine Bilirubin (NEGATIVE) Urine Ictotest Urine Urobilinogen (<2.0) EU/dL Ur Leukocyte Esterase (NEGATIVE) U Hyaline Cast (Auto) (0-2/LPF) Urine RBC (0-2/HPF) Urine WBC (0-5/HPF) Ur Epithelial Cells (NONE-FEW) Amorphous Sediment (NEGATIVE) Urine Bacteria (NEGATIVE) Urine Mucus (NONE-MOD) Ur Random Creatinine mg/dL Ur Random Sodium (40.0-220.0) mmol/L SARS-CoV-2 RNA (KATHARINA) (NEGATIVE) 04/02/20 04/02/20 04/02/20 Range/Units 18:48 18:48 19:42 WBC (4.0-11.0) K/uL RBC (4.50-5.90) M/uL Hgb (13.0-17.0) g/dL Hct (38.0-50.0) % MCV (80.0-98.0) fL MCH (27.0-32.0) pg MCHC (31.0-37.0) g/dL RDW Std Deviation (28.0-62.0) fl RDW Coeff of Geoffrey (11.0-15.0) % Plt Count (150-400) K/uL MPV (7.40-12.00) fL Neut % (Auto) (48.0-80.0) % Lymph % (Auto) (16.0-40.0) % Imperial % (Auto) (0.0-15.0) % Eos % (Auto) (0.0-7.0) % Baso % (Auto) (0.0-1.5) % Neut # (Auto) (1.4-5.7) K/uL Lymph # (Auto) (0.6-2.4) K/uL Imperial # (Auto) (0.0-0.8) K/uL Eos # (Auto) (0.0-0.7) K/uL Baso # (Auto) (0.0-0.1) K/uL Nucleated RBC % /100WBC Nucleated RBCs # K/uL Lactate 4.8 H* (0.20-2.00) mmol/L Sodium (136-148) mmol/L Potassium (3.5-5.1) mmol/L Chloride (98-107) mmol/L Carbon Dioxide (21.0-32.0) mmol/L BUN (7.0-18.0) mg/dL Creatinine (0.8-1.3) mg/dL Est Cr Clr Drug Dosing mL/min Estimated GFR (MDRD) ml/min Glucose (74-106) mg/dL Calcium (8.5-10.1) mg/dL Phosphorus 5.0 H (2.6-4.7) mg/dL Magnesium 1.9 (1.8-2.4) mg/dL Total Bilirubin (0.2-1.0) mg/dL AST (15-37) IU/L ALT (14-63) IU/L Alkaline Phosphatase (46-116) U/L Creatine Kinase 49 (26-308) U/L Troponin I < 0.050 (0.000-0.056) ng/mL B-Natriuretic Peptide (<100) PG/ML Total Protein (6.4-8.2) g/dL Albumin (3.4-5.0) g/dL Globulin (2.6-4.0) g/dL Albumin/Globulin Ratio (0.9-1.6) Lipase (73-393) U/L TSH 3rd Generation 4.81 H (0.36-3.74) uIU/mL Urine Color Urine Appearance Urine pH (5.0-8.0) Ur Specific Adams (1.001-1.035) Urine Protein (NEGATIVE) mg/dL Urine Glucose (UA) (NEGATIVE) mg/dL Urine Ketones (NEGATIVE) mg/dL Urine Occult Blood (NEGATIVE) Urine Nitrite (NEGATIVE) Urine Bilirubin (NEGATIVE) Urine Ictotest Urine Urobilinogen (<2.0) EU/dL Ur Leukocyte Esterase (NEGATIVE) U Hyaline Cast (Auto) (0-2/LPF) Urine RBC (0-2/HPF) Urine WBC (0-5/HPF) Ur Epithelial Cells (NONE-FEW) Amorphous Sediment (NEGATIVE) Urine Bacteria (NEGATIVE) Urine Mucus (NONE-MOD) Ur Random Creatinine mg/dL Ur Random Sodium (40.0-220.0) mmol/L SARS-CoV-2 RNA (KATHARINA) (NEGATIVE) 04/02/20 04/02/20 04/02/20 Range/Units 21:00 21:27 21:27 WBC (4.0-11.0) K/uL RBC (4.50-5.90) M/uL Hgb (13.0-17.0) g/dL Hct (38.0-50.0) % MCV (80.0-98.0) fL MCH (27.0-32.0) pg MCHC (31.0-37.0) g/dL RDW Std Deviation (28.0-62.0) fl RDW Coeff of Geoffrey (11.0-15.0) % Plt Count (150-400) K/uL MPV (7.40-12.00) fL Neut % (Auto) (48.0-80.0) % Lymph % (Auto) (16.0-40.0) % [place] % (Auto) (0.0-15.0) % Eos % (Auto) (0.0-7.0) % Baso % (Auto) (0.0-1.5) % Neut # (Auto) (1.4-5.7) K/uL Lymph # (Auto) (0.6-2.4) K/uL [place] # (Auto) (0.0-0.8) K/uL Eos # (Auto) (0.0-0.7) K/uL Baso # (Auto) (0.0-0.1) K/uL Nucleated RBC % /100WBC Nucleated RBCs # K/uL Lactate (0.20-2.00) mmol/L Sodium (136-148) mmol/L Potassium (3.5-5.1) mmol/L Chloride (98-107) mmol/L Carbon Dioxide (21.0-32.0) mmol/L BUN (7.0-18.0) mg/dL Creatinine (0.8-1.3) mg/dL Est Cr Clr Drug Dosing mL/min Estimated GFR (MDRD) ml/min Glucose (74-106) mg/dL Calcium (8.5-10.1) mg/dL Phosphorus (2.6-4.7) mg/dL Magnesium (1.8-2.4) mg/dL Total Bilirubin (0.2-1.0) mg/dL AST (15-37) IU/L ALT (14-63) IU/L Alkaline Phosphatase (46-116) U/L Creatine Kinase (26-308) U/L Troponin I (0.000-0.056) ng/mL B-Natriuretic Peptide (<100) PG/ML Total Protein (6.4-8.2) g/dL Albumin (3.4-5.0) g/dL Globulin (2.6-4.0) g/dL Albumin/Globulin Ratio (0.9-1.6) Lipase (73-393) U/L TSH 3rd Generation (0.36-3.74) uIU/mL Urine Color YELLOW Urine Appearance SLT CLOUDY Urine pH 5.5 (5.0-8.0) Ur Specific Adams 1.025 (1.001-1.035) Urine Protein TRACE H (NEGATIVE) mg/dL Urine Glucose (UA) NEGATIVE (NEGATIVE) mg/dL Urine Ketones TRACE H (NEGATIVE) mg/dL Urine Occult Blood TRACE-INTACT H (NEGATIVE) Urine Nitrite NEGATIVE (NEGATIVE) Urine Bilirubin SMALL H (NEGATIVE) Urine Ictotest NEGATIVE Urine Urobilinogen 2.0 H (<2.0) EU/dL Ur Leukocyte Esterase TRACE H (NEGATIVE) U Hyaline Cast (Auto) 2-4 (0-2/LPF) Urine RBC 2-4 (0-2/HPF) Urine WBC 1-3 (0-5/HPF) Ur Epithelial Cells FEW (NONE-FEW) Amorphous Sediment LIGHT (NEGATIVE) Urine Bacteria FEW (NEGATIVE) Urine Mucus LIGHT (NONE-MOD) Ur Random Creatinine 170.2 mg/dL Ur Random Sodium 17.0 L (40.0-220.0) mmol/L SARS-CoV-2 RNA (KATHARINA) NEGATIVE (NEGATIVE) 04/02/20 Range/Units 21:29 WBC (4.0-11.0) K/uL RBC (4.50-5.90) M/uL Hgb (13.0-17.0) g/dL Hct (38.0-50.0) % MCV (80.0-98.0) fL MCH (27.0-32.0) pg MCHC (31.0-37.0) g/dL RDW Std Deviation (28.0-62.0) fl RDW Coeff of Geoffrey (11.0-15.0) % Plt Count (150-400) K/uL MPV (7.40-12.00) fL Neut % (Auto) (48.0-80.0) % Lymph % (Auto) (16.0-40.0) % Imperial % (Auto) (0.0-15.0) % Eos % (Auto) (0.0-7.0) % Baso % (Auto) (0.0-1.5) % Neut # (Auto) (1.4-5.7) K/uL Lymph # (Auto) (0.6-2.4) K/uL Imperial # (Auto) (0.0-0.8) K/uL Eos # (Auto) (0.0-0.7) K/uL Baso # (Auto) (0.0-0.1) K/uL Nucleated RBC % /100WBC Nucleated RBCs # K/uL Lactate 1.6 (0.20-2.00) mmol/L Sodium (136-148) mmol/L Potassium (3.5-5.1) mmol/L Chloride (98-107) mmol/L Carbon Dioxide (21.0-32.0) mmol/L BUN (7.0-18.0) mg/dL Creatinine (0.8-1.3) mg/dL Est Cr Clr Drug Dosing mL/min Estimated GFR (MDRD) ml/min Glucose (74-106) mg/dL Calcium (8.5-10.1) mg/dL Phosphorus (2.6-4.7) mg/dL Magnesium (1.8-2.4) mg/dL Total Bilirubin (0.2-1.0) mg/dL AST (15-37) IU/L ALT (14-63) IU/L Alkaline Phosphatase (46-116) U/L Creatine Kinase (26-308) U/L Troponin I (0.000-0.056) ng/mL B-Natriuretic Peptide (<100) PG/ML Total Protein (6.4-8.2) g/dL Albumin (3.4-5.0) g/dL Globulin (2.6-4.0) g/dL Albumin/Globulin Ratio (0.9-1.6) Lipase (73-393) U/L TSH 3rd Generation (0.36-3.74) uIU/mL Urine Color Urine Appearance Urine pH (5.0-8.0) Ur Specific Adams (1.001-1.035) Urine Protein (NEGATIVE) mg/dL Urine Glucose (UA) (NEGATIVE) mg/dL Urine Ketones (NEGATIVE) mg/dL Urine Occult Blood (NEGATIVE) Urine Nitrite (NEGATIVE) Urine Bilirubin (NEGATIVE) Urine Ictotest Urine Urobilinogen (<2.0) EU/dL Ur Leukocyte Esterase (NEGATIVE) U Hyaline Cast (Auto) (0-2/LPF) Urine RBC (0-2/HPF) Urine WBC (0-5/HPF) Ur Epithelial Cells (NONE-FEW) Amorphous Sediment (NEGATIVE) Urine Bacteria (NEGATIVE) Urine Mucus (NONE-MOD) Ur Random Creatinine mg/dL Ur Random Sodium (40.0-220.0) mmol/L SARS-CoV-2 RNA (KATHARINA) (NEGATIVE) Result Diagrams: 04/03/20 08:34 04/03/20 08:34 Rick Results Last 24 hrs: Microbiology 04/02/20 21:32 C. difficile Antigen & Toxins A,B - Final Stool / Feces 04/02/20 21:44 Stool Occult Blood (RICK) - Final Stool / Feces Sepsis Event Note - Evaluation Sepsis Screening Result: No Definite Risk - Focused Exam Vital Signs: Vital Signs Temp Temp Temp Pulse Resp BP Pulse Ox 04/03/20 04:15 99.7 F 62 16 174/70 H 98 04/03/20 00:20 98.3 F 57 L 17 146/68 H 99 04/03/20 00:17 04/02/20 23:32 98.3 F 61 16 102/47 L 99 04/02/20 23:16 98.3 F 54 L 16 101/50 L 99 04/02/20 22:59 98.3 F 60 16 115/46 L 99 04/02/20 22:48 62 14 117/54 L 99 04/02/20 22:38 65 16 116/60 98 04/02/20 22:20 95.5 F L 95.8 F L 63 16 124/59 L 98 04/02/20 22:09 52 L 16 139/45 L 99 04/02/20 21:58 50 L 16 133/54 L 98 04/02/20 21:48 48 L 16 121/49 L 98 04/02/20 21:39 55 L 16 116/48 L 98 04/02/20 21:28 48 L 16 120/48 L 98 04/02/20 21:23 95.3 F L 46 L 16 141/46 H 99 04/02/20 21:09 46 L 16 109/56 L 99 04/02/20 20:38 47 L 16 97/57 L 100 04/02/20 20:28 40 L 14 104/76 100 04/02/20 20:18 43 L 16 92/41 L 99 04/02/20 20:06 95.5 F L 44 L 16 98/52 L 98 Pulse Ox 04/03/20 04:15 04/03/20 00:20 04/03/20 00:17 94 L 04/02/20 23:32 04/02/20 23:16 04/02/20 22:59 04/02/20 22:48 04/02/20 22:38 04/02/20 22:20 04/02/20 22:09 04/02/20 21:58 04/02/20 21:48 04/02/20 21:39 04/02/20 21:28 04/02/20 21:23 04/02/20 21:09 04/02/20 20:38 04/02/20 20:28 04/02/20 20:18 04/02/20 20:06 - Problem List (1) Sepsis SNOMED Code(s): 32607965 ICD Code: A41.9 - SEPSIS, UNSPECIFIED ORGANISM Status: Acute Current Visit: Yes Qualifiers: Sepsis type: sepsis due to unspecified organism Sepsis acute organ dysfunction status: with acute organ dysfunction Severe sepsis acute organ dysfunction type: acute renal failure Acute renal failure type: unspecified Severe sepsis shock status: without septic shock Qualified Code(s): A41.9 - Sepsis, unspecified organism; R65.20 - Severe sepsis without septic shock; N17.9 - Acute kidney failure, unspecified (2) Clostridium difficile diarrhea SNOMED Code(s): 5472945814817 ICD Code: A04.72 - ENTEROCOLITIS D/T CLOSTRIDIUM DIFFICILE, NOT SPCF RECUR Status: Acute Current Visit: Yes (3) UTI (urinary tract infection) SNOMED Code(s): 64919114 ICD Code: N39.0 - URINARY TRACT INFECTION, SITE NOT SPECIFIED Status: Acute Current Visit: Yes (4) ZACHERY (acute kidney injury) SNOMED Code(s): 77214534, 47507189 ICD Code: N17.9 - ACUTE KIDNEY FAILURE, UNSPECIFIED Status: Acute Current Visit: Yes (5) Bradycardia SNOMED Code(s): 81489634 ICD Code: R00.1 - BRADYCARDIA, UNSPECIFIED Status: Acute Current Visit: Yes (6) CAD (coronary artery disease) SNOMED Code(s): 97221860 ICD Code: I25.10 - ATHSCL HEART DISEASE OF [place] CORONARY ARTERY W/O ANG PC TRS Status: Chronic Current Visit: Yes (7) Anterior communicating artery aneurysm SNOMED Code(s): 356015313 ICD Code: I67.1 - CEREBRAL ANEURYSM, NONRUPTURED Status: Acute Current Visit: Yes Problem Details: Recent coiling 03/17 (8) Atrial fibrillation SNOMED Code(s): 33664352 ICD Code: I48.91 - UNSPECIFIED ATRIAL FIBRILLATION Status: Chronic Current Visit: No Qualifiers: Atrial fibrillation type: persistent (not longstanding) Qualified Code(s): I48.19 - Other persistent atrial fibrillation; I48.1 - Persistent atrial fibrillation Problem List Initiated/Reviewed/Updated: Yes Orders Last 24hrs: Active Orders 24 hr Category Date Time Status Patient Status [ADT] Routine ADT 04/02/20 22:14 Active Ambulate [RC] ASDIRECTED Care 04/03/20 00:17 Active Antiembolic Devices [RC] PER UNIT ROUTINE Care 04/03/20 00:18 Active Communication Order [RC] STAT Care 04/02/20 21:25 Active Cooling Warming Measures [RC] ASDIRECTED Care 04/03/20 00:23 Active Oxygen Therapy [RC] PRN Care 04/03/20 00:17 Active RT Aerosol Therapy [RC] ASDIRECTED Care 04/03/20 00:19 Active RT Post Treatment Assessment [RC] Click to Edit Care 04/03/20 08:01 Ordered RT Pre-Treatment Assessment [RC] Click to Edit Care 04/03/20 08:01 Ordered Telemetry Monitoring [Cardiac Monitoring] [RC] Q8H Care 04/03/20 00:00 Active VTE/DVT Education [RC] PER UNIT ROUTINE Care 04/03/20 00:17 Active Vital Signs [RC] Q4H Care 04/03/20 00:17 Active Clear Liquid Diet [DIET] Diet 04/03/20 Breakfast Active C DIFICILE TOXIN BY PCR CONF [MREF] Stat Lab 04/02/20 21:32 Received CBC WITH AUTO DIFF [HEME] Routine Lab 04/03/20 07:56 Ordered COMPREHENSIVE METABOLIC PN,CMP [CHEM] Routine Lab 04/03/20 07:56 Ordered CULTURE BLOOD [BC] Stat Lab 04/03/20 08:01 Ordered CULTURE BLOOD [BC] Stat Lab 04/03/20 08:01 Ordered CULTURE URINE [RM] Stat Lab 04/02/20 21:27 Received MAGNESIUM [CHEM] Routine Lab 04/03/20 07:56 Ordered STOOL CULTURE/SHIGA TOXIN [MREF] Stat Lab 04/02/20 21:37 Received Albuterol Sulfate [Proair Digihaler] Med 04/03/20 08:01 Ordered 2 puff IH ASDIRECTED PRN Albuterol/Ipratropium [DuoNeb 3.0-0.5 MG/3 ML] Med 04/03/20 00:17 Active 3 ml NEB Q4HRRT PRN Budesonide/Formoterol [Symbicort 160-4.5 MCG] Med 04/03/20 09:00 Ordered 2 puff INH BID Lactated Ringers [Ringers, Lactated] 1,000 ml Med 04/03/20 00:30 Active IV ASDIRECTED Morphine Med 04/03/20 04:36 Active 2 mg IVPUSH Q4H PRN Ondansetron [Zofran] Med 04/03/20 00:17 Active 4 mg IVPUSH Q4H PRN Pantoprazole [ProTONIX IV] 40 mg Med 04/03/20 00:30 Active Sodium Chloride 0.9% [Normal Saline] 10 ml IV DAILY Vancomycin [Vancocin 125 MG Capsule] Med 04/03/20 00:30 Active 125 mg PO Q6H atorvaSTATin Calcium [Atorvastatin Calcium] Med 04/03/20 09:00 Ordered 80 mg PO DAILY cefTRIAXone [Rocephin in Dextrose,Iso-Osm 1 GM/50 ML] 1 Med 04/03/20 00:30 Active gm Premix Bag 1 bag IV Q24H Blood Culture x2 Reflex Set [OM.PC] Stat Oth 04/03/20 08:01 Ordered Heat Therapy [OM.PC] PRN Oth 04/03/20 00:23 Ordered Sequential Compression Device [OM.PC] Per Unit Routine Oth 04/03/20 00:18 Ordered Medication Orders Albuterol/Ipratropium (Duoneb 3.0-0.5 Mg/3 Ml) 3 ml NEB Q4HRRT PRN PRN Reason: Shortness Of Breath/wheezing Lactated Ringer's (Ringers, Lactated) 1,000 mls @ 125 mls/hr IV ASDIRECTED CASSIE Last Admin: 04/03/20 01:30 Dose: 125 mls/hr Documented by: JOSE Pantoprazole Sodium 40 mg/ (Sodium Chloride) 10 mls @ 300 mls/hr IV DAILY [facility] Last Admin: 04/03/20 01:15 Dose: 300 mls/hr Documented by: JOSE Ceftriaxone Sodium/Dextrose 1 (gm/ Premix) 50 mls @ 100 mls/hr IV Q24H [facility] Last Admin: 04/03/20 01:16 Dose: 100 mls/hr Documented by: JOSE Morphine Sulfate (Morphine) 2 mg IVPUSH Q4H PRN PRN Reason: Pain Last Admin: 04/03/20 06:29 Dose: 2 mg Documented by: JOSE Ondansetron HCl (Zofran) 4 mg IVPUSH Q4H PRN PRN Reason: Nausea/Vomiting Last Admin: 04/03/20 06:29 Dose: 4 mg Documented by: JOSE Vancomycin HCl (Vancocin 125 Mg Capsule) 125 mg PO Q6H [facility] Last Admin: 04/03/20 06:29 Dose: 125 mg Documented by: Admin: 04/03/20 01:15 Dose: 125 mg Documented by: JOSE Assessment/Plan Comment:: This 74-year-old male admitted with sepsis secondary to C. difficile colitis and UTI. 1. Sepsis -Sepsis has resolved after fluid resuscitation but noted to have ZACHERY along with hypotension bradycardia and hypothermia -Continue fluids today and monitor closely. -Blood cultures and urine culture pending 2. C. difficile colitis -C. difficile antigen positive PCR testing pending -Vancomycin 125 mg p.o. daily 4 times daily started -CT of the abdomen obtained secondary to abdominal pain with stools. This kirill wed thickening and prominence of the rectosigmoid and a portion of the descending colon consistent with colitis no visible associated complications, small right pleural effusion no other findings. -We will add Flagyl and monitor -Clear liquid diet -Hemoglobin stable this morning, Hemoccult positive likely secondary to inflammation and C. difficile colitis monitor closely. Holding Plavix and aspir in for now. 3. UTI - Rocephin 1 gm IV daily - UC pending 4. ZACHERY -Improving today -Continue IV fluids today Avoid nephrotoxic medications- 4. CAD/HTN -We will hold Plavix and aspirin secondary to Hemoccult positive stools likely secondary to inflammation. -Holding TRENT secondary to ZACHERY 5. Atrial fibrillation -Recently metoprolol was discontinued in [place] and started on diltiazem 240 -Will restart diltiazem at half dose today and monitor closely on telemetry - bradycardia has improved VTE prophylaxis: SCDs only due to acute bleeding CODE STATUS: DNR/DNI per patient Dispo: We will change to inpatient status as he will likely need greater than 2 midnight stay
[2020-04-03] MEDS: Lactated Ringers 1,000 ML IV SCH ×3 (08:17→21:20)
[2020-04-03] MEDS: Budesonide/Formoterol [Symbicort 160-4.5 Mcg] INH SCH ×2 (09:11→21:03)
[2020-04-03] MEDS: atorvaSTATin 40 MG Tab PO SCH (09:11)
[2020-04-03 09:35] LABS: POTASSIUM,K 4.4 mmol/L (3.5-5.1)
--- NOTE | 2020-04-03 10:42 | CT ---
INDICATION: Pain, diarrhea and C difficile colitis COMPARISON: None TECHNIQUE: CT examination of the abdomen and pelvis was performed without intravenous contrast. Thin section axial images were obtained from the lung bases through the pubic symphysis. Oral contrast was not administered. Please note that all CT scans at this facility use dose modulation, iterative reconstruction, and/or weight-based dosing when appropriate to reduce radiation dose to as low as reasonably achievable. FINDINGS: LUNG BASES: Linear opacities at the lung bases are probably largely related to atelectasis. There is a small right effusion. There is also an incidental fat containing right Bochdalek hernia.Heart size normal. The lung bases. Atherosclerotic vascular calcifications. LIVER/BILIARY SYSTEM:The liver is normal in size and configuration given the lack of intravenous contrast. There is no visible focal mass and there is no intrahepatic hepatic biliary ductal dilatation.The gallbladder is distended but otherwise unremarkable in appearance. There is mild extrahepatic biliary ductal dilatation. No visible choledocholithiasis. Correlate with LFTs. ADRENALS: Normal non-contrast appearance KIDNEYS, URETERS and BLADDER:The left kidney is atrophic. The right kidney is unremarkable. No visible mass or obstructive uropathy. Bladder as visualized appears normal. Prominent prostate. SPLEEN:Normal non-contrast appearance. PANCREAS: Normal non-contrast appearance. RETROPERITONEUM and MESENTERY: There is no mass, adenopathy or aortic aneurysm. Dense atherosclerotic vascular calcifications. No sammi aneurysm. GASTROINTESTINAL SYSTEM: Thickening and prominence of the rectosigmoid and a portion of the descending colon consistent with colitis. The remainder of the colon shows no thickening or inflammatory process. No small bowel obstruction PELVIS: No free fluid or adenopathy. OSSEOUS STRUCTURES and ABDOMINAL WALL: Demineralized osseous structures. Compression type deformities of T11 and L2 likely not acute.No significant abdominal wall defect. OTHER: No free fluid or free air. IMPRESSION: 1. Thickening and prominence of the rectosigmoid and a portion of the descending colon consistent with colitis. No visible associated complications. 2. Small right pleural effusion. 3. Other incidental nonacute appearing findings as discussed above. Please note that all CT scans at this facility use dose modulation, iterative reconstruction, and/or weight-based dosing when appropriate to reduce radiation dose to as low as reasonably achievable. Dictated by Karl Arreola MD @ Apr 03 2020 10:33AM Signed by Dr. Karl Arreola @ Apr 03 2020 10:41AM
[2020-04-03] MEDS: metroNIDAZOLE/Normal Saline 500 MG in Premix Bag 1 BAG IV SCH ×2 (11:47→18:37)
[2020-04-03] MEDS: Diltiazem 120 MG Cap.CD PO SCH (16:18)
[2020-04-04] MEDS: Vancomycin 125 MG Cap PO SCH ×4 (00:42→19:06)
[2020-04-04] MEDS: metroNIDAZOLE/Normal Saline 500 MG in Premix Bag 1 BAG IV SCH ×4 (00:42→19:14)
[2020-04-04] MEDS: cefTRIAXone 1 GM in Premix Bag 1 BAG IV SCH (02:33)
[2020-04-04 06:51] LABS: CARBON DIOXIDE,CO2 22.8 mmol/L (21.0-32.0); POTASSIUM,K 4.1 mmol/L (3.5-5.1)
[2020-04-04] MEDS ORDERED: Magnesium Sulfate/Water 4 GM/100 ML BAG IV ONE (07:49)
--- NOTE | 2020-04-04 07:51 | PCM.PN ---
- General Info Date of Service: 04/04/20 Admission Dx/Problem (Free Text): Admission Diagnosis/Problem Admission Diagnosis/Problem Bradycardia Subjective Update: Reports feeling crampy prior to having bowel movement. This is intermittent. Stools have improved overnight no longer bloody reports them small brown in color and somewhat mucousy. Denies any chest pain shortness of breath or dizziness. He is tolerating clear liquids at this time. Denies any other c oncerns. Functional Status: Reports: Pain Controlled, Tolerating Diet, Ambulating, Urinating - Review of Systems General: Reports: Fatigue, Malaise HEENT: Reports: No Symptoms. Denies: Headaches, Visual Changes Pulmonary: Reports: No Symptoms. Denies: Shortness of Breath Cardiovascular: Reports: No Symptoms. Denies: Chest Pain Gastrointestinal: Reports: Abdominal Pain (Cramping), Diarrhea (Improving). Denies: Nausea, Vomiting Genitourinary: Reports: No Symptoms. Denies: Dysuria, Frequency, Burning Musculoskeletal: Reports: No Symptoms. Denies: Back Pain Skin: Reports: No Symptoms Neurological: Reports: No Symptoms Psychiatric: Reports: No Symptoms - Patient Data Vitals - Most Recent: Last Vital Signs Temp 99.3 F 04/04/20 07:28 Pulse 78 04/04/20 07:28 Resp 20 04/04/20 07:28 BP 119/58 L 04/04/20 07:28 Pulse Ox 93 L 04/04/20 07:28 Weight - Most Recent: 49.442 kg I&O - Last 24 Hours: Intake & Output 04/03/20 04/04/20 04/04/20 22:59 06:59 14:59 Intake Total 600 2755 Output Total 500 650 Balance 100 2105 Lab Results Last 24 Hours: Laboratory Results - last 24 hr 04/03/20 04/03/20 04/03/20 Range/Units 08:34 08:34 18:06 WBC 10.22 (4.0-11.0) K/uL RBC 3.40 L (4.50-5.90) M/uL Hgb 10.0 L 9.3 L (13.0-17.0) g/dL Hct 30.5 L 28.9 L (38.0-50.0) % MCV 89.7 (80.0-98.0) fL MCH 29.4 (27.0-32.0) pg MCHC 32.8 (31.0-37.0) g/dL RDW Std Deviation 60.4 (28.0-62.0) fl RDW Coeff of Geoffrey 18 H (11.0-15.0) % Plt Count 192 (150-400) K/uL MPV 10.60 (7.40-12.00) fL Neut % (Auto) 82.0 H (48.0-80.0) % Lymph % (Auto) 10.0 L (16.0-40.0) % Nicholas % (Auto) 7.8 (0.0-15.0) % Eos % (Auto) 0.1 (0.0-7.0) % Baso % (Auto) 0.1 (0.0-1.5) % Neut # (Auto) 8.4 H (1.4-5.7) K/uL Lymph # (Auto) 1.0 (0.6-2.4) K/uL Nicholas # (Auto) 0.8 (0.0-0.8) K/uL Eos # (Auto) 0.0 (0.0-0.7) K/uL Baso # (Auto) 0.0 (0.0-0.1) K/uL Nucleated RBC % 0.0 /100WBC Nucleated RBCs # 0 K/uL Sodium 137 (136-148) mmol/L Potassium 4.4 (3.5-5.1) mmol/L Chloride 103 (98-107) mmol/L Carbon Dioxide 21.0 (21.0-32.0) mmol/L BUN 36 H (7.0-18.0) mg/dL Creatinine 3.0 H (0.8-1.3) mg/dL Est Cr Clr Drug Dosing 14.65 mL/min Estimated GFR (MDRD) 20.4 ml/min Glucose 74 (74-106) mg/dL Calcium 8.9 (8.5-10.1) mg/dL Magnesium 1.7 L (1.8-2.4) mg/dL Total Bilirubin 0.3 (0.2-1.0) mg/dL AST 20 (15-37) IU/L ALT 19 (14-63) IU/L Alkaline Phosphatase 162 H (46-116) U/L Total Protein 7.1 (6.4-8.2) g/dL Albumin 2.6 L (3.4-5.0) g/dL Globulin 4.5 H (2.6-4.0) g/dL Albumin/Globulin Ratio 0.6 L (0.9-1.6) 04/04/20 04/04/20 Range/Units 05:30 05:30 WBC 8.26 (4.0-11.0) K/uL RBC 2.94 L (4.50-5.90) M/uL Hgb 8.5 L (13.0-17.0) g/dL Hct 26.6 L (38.0-50.0) % MCV 90.5 (80.0-98.0) fL MCH 28.9 (27.0-32.0) pg MCHC 32.0 (31.0-37.0) g/dL RDW Std Deviation 62.4 H (28.0-62.0) fl RDW Coeff of Geoffrey 19 H (11.0-15.0) % Plt Count 164 (150-400) K/uL MPV 11.00 (7.40-12.00) fL Neut % (Auto) 76.4 (48.0-80.0) % Lymph % (Auto) 13.0 L (16.0-40.0) % Nicholas % (Auto) 9.6 (0.0-15.0) % Eos % (Auto) 0.8 (0.0-7.0) % Baso % (Auto) 0.2 (0.0-1.5) % Neut # (Auto) 6.3 H (1.4-5.7) K/uL Lymph # (Auto) 1.1 (0.6-2.4) K/uL Nicholas # (Auto) 0.8 (0.0-0.8) K/uL Eos # (Auto) 0.1 (0.0-0.7) K/uL Baso # (Auto) 0.0 (0.0-0.1) K/uL Nucleated RBC % 0.0 /100WBC Nucleated RBCs # 0 K/uL Sodium 139 (136-148) mmol/L Potassium 4.1 (3.5-5.1) mmol/L Chloride 107 (98-107) mmol/L Carbon Dioxide 22.8 (21.0-32.0) mmol/L BUN 20 H (7.0-18.0) mg/dL Creatinine 1.9 H (0.8-1.3) mg/dL Est Cr Clr Drug Dosing 23.13 mL/min Estimated GFR (MDRD) 34.6 ml/min Glucose 84 (74-106) mg/dL Calcium 8.0 L (8.5-10.1) mg/dL Magnesium 1.5 L (1.8-2.4) mg/dL Total Bilirubin (0.2-1.0) mg/dL AST (15-37) IU/L ALT (14-63) IU/L Alkaline Phosphatase (46-116) U/L Total Protein (6.4-8.2) g/dL Albumin (3.4-5.0) g/dL Globulin (2.6-4.0) g/dL Albumin/Globulin Ratio (0.9-1.6) Med Orders - Current: Current Medications Acetaminophen (Tylenol) 650 mg PO Q4H PRN PRN Reason: Pain Albuterol/Ipratropium (Duoneb 3.0-0.5 Mg/3 Ml) 3 ml NEB Q4HRRT PRN PRN Reason: Shortness Of Breath/wheezing Atorvastatin Calcium (Lipitor) 80 mg PO DAILY [facility] Last Admin: 04/03/20 09:11 Dose: 80 mg Documented by: Diltiazem HCl (Cardizem Cd) 120 mg PO DAILY [facility] Last Admin: 04/03/20 16:18 Dose: 120 mg Documented by: Pantoprazole Sodium 40 mg/ (Sodium Chloride) 10 mls @ 300 mls/hr IV DAILY [facility] Last Admin: 04/03/20 09:10 Dose: 300 mls/hr Documented by: Ceftriaxone Sodium/Dextrose 1 (gm/ Premix) 50 mls @ 100 mls/hr IV Q24H [facility] Last Admin: 04/04/20 02:33 Dose: 100 mls/hr Documented by: Metronidazole 500 mg/ Premix 100 mls @ 100 mls/hr IV QID [facility] Last Admin: 04/04/20 05:22 Dose: 100 mls/hr Documented by: Magnesium Sulfate (Magnesium Sulfate In Water Premix) 4 gm in 100 mls @ 50 mls/hr IV ONETIME ONE Stop: 12/08/20 09:48 Morphine Sulfate (Morphine) 2 mg IVPUSH Q4H PRN PRN Reason: Pain Last Admin: 04/03/20 06:29 Dose: 2 mg Documented by: Ondansetron HCl (Zofran) 4 mg IVPUSH Q4H PRN PRN Reason: Nausea Budesonide/Formoterol [ Symbicort 160-4.5 Mcg] 2 each INH BID [facility] Last Admin: 04/03/20 21:03 Dose: Not Given Documented by: Albuterol Sulfate [ (Proair Digihaler]) 2 each INH Q4HRRT PRN PRN Reason: Dyspnea Vancomycin HCl (Vancocin 125 Mg Capsule) 125 mg PO Q6H [facility] Last Admin: 04/04/20 06:38 Dose: 125 mg Documented by: Discontinued Medications Glucagon (Glucagen) 5 mg IV ONETIME ONE Stop: 04/02/20 20:12 Last Admin: 04/02/20 22:17 Dose: 5 mg Documented by: Sodium Chloride (Normal Saline) 1,000 mls @ 999 mls/hr IV ASDIRECTED [facility] Last Admin: 04/02/20 20:53 Dose: 999 mls/hr Documented by: Lactated Ringer's (Ringers, Lactated) 1,000 mls @ 125 mls/hr IV ASDIRECTED [facility] Last Admin: 04/03/20 01:30 Dose: 125 mls/hr Documented by: Pantoprazole Sodium 40 mg/ (Sodium Chloride) 10 mls @ 300 mls/hr IV ONETIME ONE Stop: 04/03/20 00:18 Last Admin: 04/03/20 01:12 Dose: Not Given Documented by: Lactated Ringer's (Ringers, Lactated) 1,000 mls @ 125 mls/hr IV Q8H [facility] Last Admin: 04/03/20 21:20 Dose: 125 mls/hr Documented by: Ondansetron HCl (Zofran) Confirm Administered Dose 4 mg .ROUTE .STK-MED ONE Stop: 04/02/20 18:40 Last Admin: 04/02/20 18:45 Dose: Not Given Documented by: Ondansetron HCl (Zofran) 4 mg IVPUSH ONETIME ONE Stop: 04/02/20 18:45 Last Admin: 04/02/20 18:47 Dose: 4 mg Documented by: Ondansetron HCl (Zofran) 4 mg IVPUSH ONETIME ONE Stop: 04/02/20 22:11 Last Admin: 04/02/20 22:15 Dose: 4 mg Documented by: Ondansetron HCl (Zofran) 4 mg IVPUSH Q4H PRN PRN Reason: Nausea/Vomiting Last Admin: 04/03/20 06:29 Dose: 4 mg Documented by: - Exam Quality Assessment: DVT Prophylaxis (SCDs only due to acute bleeding) General: Alert, Oriented, Cooperative, No Acute Distress Lungs: Clear to Auscultation, Normal Respiratory Effort Cardiovascular: Regular Rate, Regular Rhythm GI/Abdominal Exam: Normal Bowel Sounds, Soft, Non-Tender Extremities: Normal Inspection, Normal Range of Motion, Non-Tender, No Pedal Edema Neurological: No New Focal Deficit Psy/Mental Status: Alert, Normal Affect, Normal Mood Sepsis Event Note - Evaluation Sepsis Screening Result: No Definite Risk - Focused Exam Vital Signs: Vital Signs Temp Pulse Resp BP Pulse Ox 04/04/20 07:28 99.3 F 78 20 119/58 L 93 L 04/04/20 04:00 98.8 F 75 16 110/62 94 L 04/04/20 00:46 98.8 F 88 17 102/56 L 94 L 04/03/20 21:17 99 F 79 17 133/61 95 - Problem List & Annotations (1) Sepsis SNOMED Code(s): 83715623 Code(s): A41.9 - SEPSIS, UNSPECIFIED ORGANISM Status: Acute Current Visit: Yes Qualifiers: Sepsis type: sepsis due to unspecified organism Sepsis acute organ dysfunction status: with acute organ dysfunction Severe sepsis acute organ dysfunction type: acute renal failure Acute renal failure type: unspecified Severe sepsis shock status: without septic shock Qualified Code(s): A41.9 - Sepsis, unspecified organism; R65.20 - Severe sepsis without septic shock; N17.9 - Acute kidney failure, unspecified (2) Clostridium difficile diarrhea SNOMED Code(s): 4493487882953 Code(s): A04.72 - ENTEROCOLITIS D/T CLOSTRIDIUM DIFFICILE, NOT SPCF RECUR Status: Acute Current Visit: Yes (3) UTI (urinary tract infection) SNOMED Code(s): 68276855 Code(s): N39.0 - URINARY TRACT INFECTION, SITE NOT SPECIFIED Status: Acute Current Visit: Yes (4) ZACHERY (acute kidney injury) SNOMED Code(s): 59533222, 46273083 Code(s): N17.9 - ACUTE KIDNEY FAILURE, UNSPECIFIED Status: Acute Current Visit: Yes (5) Bradycardia SNOMED Code(s): 41482925 Code(s): R00.1 - BRADYCARDIA, UNSPECIFIED Status: Acute Current Visit: Yes (6) CAD (coronary artery disease) SNOMED Code(s): 61659062 Code(s): I25.10 - ATHSCL HEART DISEASE OF [place] CORONARY ARTERY W/O ANG PCTRS Status: Chronic Current Visit: Yes (7) Anterior communicating artery aneurysm SNOMED Code(s): 187359071 Code(s): I67.1 - CEREBRAL ANEURYSM, NONRUPTURED Status: Acute Current Visit: Yes Annotation/Comment:: Recent coiling 03/17 (8) Atrial fibrillation SNOMED Code(s): 32224071 Code(s): I48.91 - UNSPECIFIED ATRIAL FIBRILLATION Status: Chronic Current Visit: No Qualifiers: Atrial fibrillation type: persistent (not longstanding) Qualified Code(s): I48.19 - Other persistent atrial fibrillation; I48.1 - Persistent atrial fibrillation - Problem List Review Problem List Initiated/Reviewed/Updated: Yes - My Orders Last 24 Hours: My Active Orders 04/03/20 08:01 RT Post Treatment Assessment [RC] Click to Edit RT Pre-Treatment Assessment [RC] Click to Edit Patient's Own Medication [Ptom] 2 each INH Q4HRRT PRN Blood Culture x2 Reflex Set [OM.PC] Stat 04/03/20 08:34 CULTURE BLOOD [BC] Stat 04/03/20 08:44 CULTURE BLOOD [BC] Stat 04/03/20 09:00 Patient's Own Medication [Ptom] 2 each INH BID atorvaSTATin [Lipitor] 80 mg PO DAILY 04/03/20 09:41 Patient Status [ADT] Stat Resuscitation Status Routine 04/03/20 12:00 metroNIDAZOLE/Normal Saline [Flagyl 500 MG in NS 100 ML] 500 mg Premix Bag 1 bag IV QID 04/03/20 15:00 Diltiazem [Cardizem CD] 120 mg PO DAILY 04/03/20 15:22 Intake and Output [RC] QSHIFT 04/03/20 15:23 Acetaminophen [TylenoL] 650 mg PO Q4H PRN Ondansetron [Zofran] 4 mg IVPUSH Q4H PRN 04/04/20 07:49 Magnesium Sulfate/Water [Magnesium Sulfate in Water Premix] 4 gm in 100 ml IV ONETIME 04/04/20 08:00 Lactated Ringers [Ringers, Lactated] 1,000 ml IV Q13H 04/05/20 05:11 BASIC METABOLIC PANEL,BMP [CHEM] AM CBC WITH AUTO DIFF [HEME] AM MAGNESIUM [CHEM] AM 04/06/20 05:11 BASIC METABOLIC PANEL,BMP [CHEM] AM CBC WITH AUTO DIFF [HEME] AM MAGNESIUM [CHEM] AM 04/07/20 05:11 BASIC METABOLIC PANEL,BMP [CHEM] AM CBC WITH AUTO DIFF [HEME] AM MAGNESIUM [CHEM] AM 04/08/20 05:11 BASIC METABOLIC PANEL,BMP [CHEM] AM CBC WITH AUTO DIFF [HEME] AM MAGNESIUM [CHEM] AM - Plan Plan:: This 74-year-old male admitted with sepsis secondary to C. difficile colitis and UTI. 1. C. difficile colitis -C. difficile antigen positive PCR testing pending -Vancomycin 125 mg p.o. daily 4 times daily started -CT of the abdomen obtained secondary to abdominal pain with stools. This showed thickening and prominence of the rectosigmoid and a portion of the descending colon consistent with colitis no visible associated complications, small right pleural effusion no other findings. - continue Flagyl -Clear liquid diet until cramping improves -Hemoglobin dipped to 8.5 likely dilutional as other cell lines also decreased. But due to CAD and recent mild bleeding rectally due to C. difficile will transfuse 1 unit PRBCs today. No further bleeding noted in stools. 2. UTI -UC mixed amara will stop Rocephin due to C. difficile patient remains asymptomatic 3. ZACHERY -Improving today, creatinine 1.9 -Continue IV fluids today, will slow rate to 75 mils per hour - Avoid nephrotoxic medications 4. CAD/HTN -We will hold Plavix and aspirin secondary to Hemoccult positive stools likely secondary to inflammation. -Holding TRENT secondary to ZACHERY 5. Atrial fibrillation -Bradycardia resolved -Continue diltiazem 120 daily VTE prophylaxis: SCDs only due to acute bleeding CODE STATUS: DNR/DNI per patient Dispo: 2 to 3 days pending improvement
[2020-04-04] MEDS: atorvaSTATin 40 MG Tab PO SCH (08:25)
[2020-04-04] MEDS: Diltiazem 120 MG Cap.CD PO SCH (08:26)
[2020-04-04] MEDS: Pantoprazole 40 MG in Sodium Chloride 0.9% 10 ML IV SCH (08:27)
[2020-04-04] MEDS ORDERED: Magnesium Sulfate/Water 2 GM/50 ML BAG ONE (08:33)
[2020-04-04] MEDS: Budesonide/Formoterol [Symbicort 160-4.5 Mcg] INH SCH (08:57)
[2020-04-04] MEDS: Morphine 2 MG/ML SYRINGE IVPUSH PRN (08:57)
[2020-04-04] MEDS: Lactated Ringers 1,000 ML IV SCH (10:01)
[2020-04-05] MEDS: Budesonide/Formoterol [Symbicort 160-4.5 Mcg] INH SCH ×3 (00:13→23:48)
[2020-04-05] MEDS: Morphine 2 MG/ML SYRINGE IVPUSH PRN (00:13)
[2020-04-05] MEDS: metroNIDAZOLE/Normal Saline 500 MG in Premix Bag 1 BAG IV SCH ×4 (00:18→17:59)
[2020-04-05] MEDS: Vancomycin 125 MG Cap PO SCH ×4 (00:42→17:59)
[2020-04-05 05:36] LABS: POTASSIUM,K 3.9 mmol/L (3.5-5.1)
--- NOTE | 2020-04-05 08:04 | PCM.PN ---
- General Info Date of Service: 04/05/20 Admission Dx/Problem (Free Text): Admission Diagnosis/Problem Admission Diagnosis/Problem Bradycardia Subjective Update: Gavin is feeling much improved today abdominal cramping has improved and he has feelings of increased appetite. Stools have improved reports no bowel movements overnight but did have a small one this morning continues to report further blood in stools. He is up ambulating but would benefit from physical therapy. More alert and has more color to him today. Continues to feel not quite ready to go home today. Functional Status: Reports: Pain Controlled, Tolerating Diet, Ambulating, Urinating - Review of Systems General: Reports: Weakness. Denies: Fever, Fatigue HEENT: Reports: No Symptoms. Denies: Headaches, Sore Throat, Visual Changes Pulmonary: Denies: Shortness of Breath Cardiovascular: Denies: Chest Pain Gastrointestinal: Reports: Abdominal Pain (Intermittently has some mild cramping but this is significantly improved since yesterday.), Diarrhea (Only once this morning so far since yesterday evening). Denies: Nausea, Vomiting Genitourinary: Reports: No Symptoms. Denies: Dysuria, Frequency Musculoskeletal: Reports: No Symptoms Skin: Reports: No Symptoms Neurological: Reports: No Symptoms Psychiatric: Reports: No Symptoms - Patient Data Vitals - Most Recent: Last Vital Signs Temp 99.5 F 04/05/20 04:25 Pulse 68 04/05/20 04:25 Resp 17 04/05/20 04:25 BP 128/61 04/05/20 04:25 Pulse Ox 92 L 04/05/20 04:25 Weight - Most Recent: 49.442 kg I&O - Last 24 Hours: Intake & Output 04/04/20 04/05/20 04/05/20 22:59 06:59 14:59 Intake Total 340 Balance 340 Lab Results Last 24 Hours: Laboratory Results - last 24 hr 04/04/20 04/04/20 04/05/20 Range/Units 10:50 18:00 04:53 WBC 7.21 (4.0-11.0) K/uL RBC 3.36 L (4.50-5.90) M/uL Hgb 9.5 L 9.7 L (13.0-17.0) g/dL Hct 29.0 L 29.9 L (38.0-50.0) % MCV 89.0 (80.0-98.0) fL MCH 28.9 (27.0-32.0) pg MCHC 32.4 (31.0-37.0) g/dL RDW Std Deviation 57.8 (28.0-62.0) fl RDW Coeff of Geoffrey 18 H (11.0-15.0) % Plt Count 147 L (150-400) K/uL MPV 10.60 (7.40-12.00) fL Neut % (Auto) 77.1 (48.0-80.0) % Lymph % (Auto) 11.8 L (16.0-40.0) % [place] % (Auto) 8.9 (0.0-15.0) % Eos % (Auto) 2.1 (0.0-7.0) % Baso % (Auto) 0.1 (0.0-1.5) % Neut # (Auto) 5.6 (1.4-5.7) K/uL Lymph # (Auto) 0.9 (0.6-2.4) K/uL [place] # (Auto) 0.6 (0.0-0.8) K/uL Eos # (Auto) 0.2 (0.0-0.7) K/uL Baso # (Auto) 0.0 (0.0-0.1) K/uL Nucleated RBC % 0.0 /100WBC Nucleated RBCs # 0 K/uL Sodium (136-148) mmol/L Potassium (3.5-5.1) mmol/L Chloride (98-107) mmol/L Carbon Dioxide (21.0-32.0) mmol/L BUN (7.0-18.0) mg/dL Creatinine (0.8-1.3) mg/dL Est Cr Clr Drug Dosing mL/min Estimated GFR (MDRD) ml/min Glucose (74-106) mg/dL Calcium (8.5-10.1) mg/dL Magnesium (1.8-2.4) mg/dL Blood Type A POSITIVE Antibody Screen NEGATIVE Crossmatch See Detail 04/05/20 Range/Units 04:53 WBC (4.0-11.0) K/uL RBC (4.50-5.90) M/uL Hgb (13.0-17.0) g/dL Hct (38.0-50.0) % MCV (80.0-98.0) fL MCH (27.0-32.0) pg MCHC (31.0-37.0) g/dL RDW Std Deviation (28.0-62.0) fl RDW Coeff of Geoffrey (11.0-15.0) % Plt Count (150-400) K/uL MPV (7.40-12.00) fL Neut % (Auto) (48.0-80.0) % Lymph % (Auto) (16.0-40.0) % [place] % (Auto) (0.0-15.0) % Eos % (Auto) (0.0-7.0) % Baso % (Auto) (0.0-1.5) % Neut # (Auto) (1.4-5.7) K/uL Lymph # (Auto) (0.6-2.4) K/uL [place] # (Auto) (0.0-0.8) K/uL Eos # (Auto) (0.0-0.7) K/uL Baso # (Auto) (0.0-0.1) K/uL Nucleated RBC % /100WBC Nucleated RBCs # K/uL Sodium 137 (136-148) mmol/L Potassium 3.9 (3.5-5.1) mmol/L Chloride 107 (98-107) mmol/L Carbon Dioxide 24.0 (21.0-32.0) mmol/L BUN 11 (7.0-18.0) mg/dL Creatinine 1.5 H (0.8-1.3) mg/dL Est Cr Clr Drug Dosing 29.30 mL/min Estimated GFR (MDRD) 45.5 ml/min Glucose 81 (74-106) mg/dL Calcium 7.9 L (8.5-10.1) mg/dL Magnesium 2.2 (1.8-2.4) mg/dL Blood Type Antibody Screen Crossmatch Rick Results Last 24 Hours: Microbiology 04/02/20 21:37 Shiga Toxin I & II - Final Stool / Feces 04/03/20 08:44 Aerobic Blood Culture - Preliminary Blood - Venous - Lab Draw NO GROWTH AFTER 1 DAY Anaerobic Blood Culture - Preliminary NO GROWTH AFTER 1 DAY 12/07/20 08:34 Aerobic Blood Culture - Preliminary Blood - Venous NO GROWTH AFTER 1 DAY Anaerobic Blood Culture - Preliminary NO GROWTH AFTER 1 DAY 04/02/20 21:27 Urine Culture - Final Urine, Clean Catch MIXED ILAN >100,000 CFU/ML Med Orders - Current: Current Medications Acetaminophen (Tylenol) 650 mg PO Q4H PRN PRN Reason: Pain Albuterol/Ipratropium (Duoneb 3.0-0.5 Mg/3 Ml) 3 ml NEB Q4HRRT PRN PRN Reason: Shortness Of Breath/wheezing Atorvastatin Calcium (Lipitor) 80 mg PO DAILY [facility] Last Admin: 04/04/20 08:25 Dose: 80 mg Documented by: Diltiazem HCl (Cardizem Cd) 120 mg PO DAILY [facility] Last Admin: 04/04/20 08:26 Dose: 120 mg Documented by: Pantoprazole Sodium 40 mg/ (Sodium Chloride) 10 mls @ 300 mls/hr IV DAILY [facility] Last Admin: 04/04/20 08:27 Dose: 300 mls/hr Documented by: Metronidazole 500 mg/ Premix 100 mls @ 100 mls/hr IV QID [facility] Last Admin: 04/05/20 06:16 Dose: 100 mls/hr Documented by: Lactated Ringer's (Ringers, Lactated) 1,000 mls @ 75 mls/hr IV Q13H [facility] Last Admin: 04/04/20 10:01 Dose: 75 mls/hr Documented by: Morphine Sulfate (Morphine) 2 mg IVPUSH Q4H PRN PRN Reason: Pain Last Admin: 04/05/20 00:13 Dose: 2 mg Documented by: Ondansetron HCl (Zofran) 4 mg IVPUSH Q4H PRN PRN Reason: Nausea Last Admin: 04/04/20 08:57 Dose: 4 mg Documented by: Budesonide/Formoterol [ Symbicort 160-4.5 Mcg] 2 each INH BID [facility] Last Admin: 04/05/20 00:13 Dose: Not Given Documented by: Albuterol Sulfate [ (Proair Digihaler]) 2 each INH Q4HRRT PRN PRN Reason: Dyspnea Vancomycin HCl (Vancocin 125 Mg Capsule) 125 mg PO Q6H [facility] Last Admin: 04/05/20 06:16 Dose: 125 mg Documented by: Discontinued Medications Glucagon (Glucagen) 5 mg IV ONETIME ONE Stop: 04/02/20 20:12 Last Admin: 04/02/20 22:17 Dose: 5 mg Documented by: Sodium Chloride (Normal Saline) 1,000 mls @ 999 mls/hr IV ASDIRECTED [facility] Last Admin: 04/02/20 20:53 Dose: 999 mls/hr Documented by: Lactated Ringer's (Ringers, Lactated) 1,000 mls @ 125 mls/hr IV ASDIRECTED [facility] Last Admin: 04/03/20 01:30 Dose: 125 mls/hr Documented by: Pantoprazole Sodium 40 mg/ (Sodium Chloride) 10 mls @ 300 mls/hr IV ONETIME ONE Stop: 04/03/20 00:18 Last Admin: 04/03/20 01:12 Dose: Not Given Documented by: Ceftriaxone Sodium/Dextrose 1 (gm/ Premix) 50 mls @ 100 mls/hr IV Q24H [facility] Last Admin: 04/04/20 02:33 Dose: 100 mls/hr Documented by: Lactated Ringer's (Ringers, Lactated) 1,000 mls @ 125 mls/hr IV Q8H [facility] Last Admin: 04/03/20 21:20 Dose: 125 mls/hr Documented by: Magnesium Sulfate (Magnesium Sulfate In Water Premix) 4 gm in 100 mls @ 50 mls/hr IV ONETIME ONE Stop: 04/04/20 09:48 Last Admin: 04/04/20 08:28 Dose: 50 mls/hr Documented by: Magnesium Sulfate (Magnesium Sulfate In Water Premix) Confirm Administered Dose 2 gm in 50 mls @ as directed .ROUTE .STK-MED ONE Stop: 04/04/20 08:34 Last Admin: 04/04/20 08:37 Dose: Not Given Documented by: Ondansetron HCl (Zofran) Confirm Administered Dose 4 mg .ROUTE .STK-MED ONE Stop: 04/02/20 18:40 Last Admin: 04/02/20 18:45 Dose: Not Given Documented by: Ondansetron HCl (Zofran) 4 mg IVPUSH ONETIME ONE Stop: 04/02/20 18:45 Last Admin: 04/02/20 18:47 Dose: 4 mg Documented by: Ondansetron HCl (Zofran) 4 mg IVPUSH ONETIME ONE Stop: 04/02/20 22:11 Last Admin: 04/02/20 22:15 Dose: 4 mg Documented by: Ondansetron HCl (Zofran) 4 mg IVPUSH Q4H PRN PRN Reason: Nausea/Vomiting Last Admin: 04/03/20 06:29 Dose: 4 mg Documented by: - Exam Quality Assessment: DVT Prophylaxis. No: Supplemental Oxygen General: Alert, Oriented, Cooperative, No Acute Distress Lungs: Clear to Auscultation, Normal Respiratory Effort Cardiovascular: Regular Rate, Regular Rhythm GI/Abdominal Exam: Normal Bowel Sounds, Soft, Non-Tender, No Organomegaly Back Exam: Normal Inspection, Full Range of Motion Extremities: Normal Inspection, Normal Range of Motion, Non-Tender, No Pedal Edema Skin: Warm, Dry, Intact Neurological: No New Focal Deficit Psy/Mental Status: Alert, Normal Affect, Normal Mood Sepsis Event Note - Evaluation Sepsis Screening Result: No Definite Risk - Focused Exam Vital Signs: Vital Signs Temp Pulse Resp BP Pulse Ox 04/05/20 04:25 99.5 F 68 17 128/61 92 L 04/04/20 23:26 98.3 F 84 16 125/58 L 94 L - Problem List & Annotations (1) Sepsis SNOMED Code(s): 29976909 Code(s): A41.9 - SEPSIS, UNSPECIFIED ORGANISM Status: Resolved Current Visit: Yes Qualifiers: Sepsis type: sepsis due to unspecified organism Sepsis acute organ dysfunction status: with acute organ dysfunction Severe sepsis acute organ dysfunction type: acute renal failure Acute renal failure type: unspecified Severe sepsis shock status: without septic shock Qualified Code(s): A41.9 - Sepsis, unspecified organism; R65.20 - Severe sepsis without septic shock; N17.9 - Acute kidney failure, unspecified (2) Clostridium difficile diarrhea SNOMED Code(s): 8041176358862 Code(s): A04.72 - ENTEROCOLITIS D/T CLOSTRIDIUM DIFFICILE, NOT SPCF RECUR Status: Acute Current Visit: Yes (3) UTI (urinary tract infection) SNOMED Code(s): 72039439 Code(s): N39.0 - URINARY TRACT INFECTION, SITE NOT SPECIFIED Status: Acute Current Visit: Yes (4) ZACHERY (acute kidney injury) SNOMED Code(s): 82146495, 68102865 Code(s): N17.9 - ACUTE KIDNEY FAILURE, UNSPECIFIED Status: Acute Current Visit: Yes (5) Bradycardia SNOMED Code(s): 07265059 Code(s): R00.1 - BRADYCARDIA, UNSPECIFIED Status: Acute Current Visit: Yes (6) CAD (coronary artery disease) SNOMED Code(s): 48170863 Code(s): I25.10 - ATHSCL HEART DISEASE OF [place] CORONARY ARTERY W/O ANG PCTRS Status: Chronic Current Visit: Yes (7) Anterior communicating artery aneurysm SNOMED Code(s): 371901819 Code(s): I67.1 - CEREBRAL ANEURYSM, NONRUPTURED Status: Acute Current Visit: Yes Annotation/Comment:: Recent coiling 03/17 (8) Atrial fibrillation SNOMED Code(s): 81911876 Code(s): I48.91 - UNSPECIFIED ATRIAL FIBRILLATION Status: Chronic Current Visit: No Qualifiers: Atrial fibrillation type: persistent (not longstanding) Qualified Code(s): I48.19 - Other persistent atrial fibrillation; I48.1 - Persistent atrial fibrillation - Problem List Review Problem List Initiated/Reviewed/Updated: Yes - My Orders Last 24 Hours: My Active Orders 04/04/20 08:00 Lactated Ringers [Ringers, Lactated] 1,000 ml IV Q13H 04/04/20 10:20 Verify Patient Consent Obtain [RC] ASDIRECTED Transfuse Red Blood Cells [COMM] Routine 04/06/20 05:11 BASIC METABOLIC PANEL,BMP [CHEM] AM CBC WITH AUTO DIFF [HEME] AM MAGNESIUM [CHEM] AM 04/07/20 05:11 BASIC METABOLIC PANEL,BMP [CHEM] AM CBC WITH AUTO DIFF [HEME] AM MAGNESIUM [CHEM] AM 04/08/20 05:11 BASIC METABOLIC PANEL,BMP [CHEM] AM CBC WITH AUTO DIFF [HEME] AM MAGNESIUM [CHEM] AM - Plan Plan:: This 74-year-old male admitted with sepsis secondary to C. difficile colitis and UTI. 1. C. difficile colitis -C. difficile antigen positive PCR testing pending -Vancomycin 125 mg p.o. daily 4 times daily total of 10-day therapy - continue Flagyl -Start soft diet today -No further bleeding hemoglobin 9.7 today stable after 1 unit of blood 2. ZACHERY -At baseline today creatinine 1.5 -Continue IV fluids today continue for 1 more liter then stop - Avoid nephrotoxic medications 4. CAD/HTN -We will hold Plavix and aspirin secondary to Hemoccult positive stools likely secondary to inflammation. -Holding TRENT secondary to ZACHERY 5. Atrial fibrillation -Continue diltiazem 120 daily VTE prophylaxis: SCDs only due to acute bleeding CODE STATUS: DNR/DNI per patient Dispo: 2 to 3 days pending improvement
[2020-04-05] MEDS: Albuterol/Ipratropium 3.0-0.5 MG/3 ML Neb Soln NEB PRN ×2 (08:13→13:28)
[2020-04-05] MEDS: Lactated Ringers 1,000 ML IV SCH ×2 (08:21→10:32)
[2020-04-05] MEDS: Diltiazem 120 MG Cap.CD PO SCH (10:30)
[2020-04-05] MEDS: Pantoprazole 40 MG in Sodium Chloride 0.9% 10 ML IV SCH (10:31)
[2020-04-05] MEDS: atorvaSTATin 40 MG Tab PO SCH (10:31)
[2020-04-05] MEDS: Acetaminophen 325 MG Tab PO PRN (17:59)
[2020-04-06] MEDS: metroNIDAZOLE/Normal Saline 500 MG in Premix Bag 1 BAG IV SCH ×2 (00:38→05:31)
[2020-04-06] MEDS: Vancomycin 125 MG Cap PO SCH ×2 (00:38→05:34)
[2020-04-06] MEDS: Acetaminophen 325 MG Tab PO PRN (00:43)
[2020-04-06] MEDS: Albuterol/Ipratropium 3.0-0.5 MG/3 ML Neb Soln NEB PRN ×2 (02:32→10:52)
[2020-04-06 06:48] LABS: CARBON DIOXIDE,CO2 23.5 mmol/L (21.0-32.0); POTASSIUM,K 3.4 mmol/L (3.5-5.1)
[2020-04-06] MEDS: Budesonide/Formoterol [Symbicort 160-4.5 Mcg] INH SCH (09:21)
[2020-04-06] MEDS: Diltiazem 120 MG Cap.CD PO SCH (09:28)
[2020-04-06] MEDS: Pantoprazole 40 MG in Sodium Chloride 0.9% 10 ML IV SCH (09:28)
[2020-04-06] MEDS: atorvaSTATin 40 MG Tab PO SCH (09:28)
[2020-04-06 09:29] VITALS: BP 168/75; PULSE 77
--- NOTE | 2020-04-06 09:37 | PCM.DCSUM1 ---
Discharge Summary - Hospital Course Brief History: This 74-year-old male with significant complex medical history which includes recent anterior communicating artery aneurysm coiling in [place], CAD with multiple stents, hypertension, carotid stenting, atrial fibrillation and COPD presented to the ER with complaints of nausea vomiting and otherwise not feeling well. He reports he has been having constant diarrhea the past 1 day with some mild abdominal cramping prior to having a bowel movement. He denies any recent travel other than being in [place] for medical care. Denies any recent antibiotic use that he is aware of. No other sick contacts. He reports he has not been able to eat or drink much the last day having some nausea and vomiting. Diarrhea is very loose mucousy blood-tinged. He denies any chest pain shortness of breath or palpitations. No headache fever neck pain throat or sinus congestion. Denies any trouble urinating. Reports some overall mild generalized weakness. No swelling to his feet or ankles. He reports he quit smoking many years ago denies any recreational drug use and no alcohol use. While in the ER no leukocytosis was noted hemoglobin 10.2 hematocrit 32.6. Lactic acid elevated at 4.8. Bicarb 19.6 BUN 38 creatinine 3.4. FENA 0.25% no ATN noted likely prerenal. TSH 4.81 troponin was negative Covid negative chest x-ray was negative stool studies obtained showing C. difficile antigen positive toxin negative PCR will be sent. Hemoccult also positive. UTI noted with trace leukocyte esterase and pyuria of 1-4. He was also noted to be bradycardic in the ER 30s to 40s. He was also noted to be hypotensive along with hypothermic. He was given calcium gluconate along with warmed IV fluids and Nereida hugger. Temperature improved And heart rate improved with IV fluids. Lactic acid normalized after IV fluid resuscitation. He was started on Rocephin as well as vancomycin. He will be admitted for sepsis, C. difficile colitis, and UTI. [facility]. Recent echo in [place] on February 2020 revealed no pulmonary hypertension and EF was 60 to 65%. Diagnosis: Stroke: No - Discharge Data Discharge Date: 04/06/20 Discharge Disposition: Home, W Home Health Agency 06 Condition: Stable - Referral to Home Health Date of Face to Face Encounter: 04/06/20 Reason for Homebound Status: Bill is homebound, requiring assistance of caregiver and walker to leave the house for appointments due to unsteady gait and history of falls Primary Care Physician: Seymour Tyler NP Skilled Need: Bill is in need of halfway care to follow medication administration and insure appropriate medications are in pill box. Monitor Heart failure symptoms as well as vital signs with changes to cardiac medications. He is in need of PT to evaluate and treat for unsteady gait as well as OT to evaluate for ADLS and home safety. - Discharge Diagnosis/Problem(s) (1) Sepsis SNOMED Code(s): 40509030 ICD Code: A41.9 - SEPSIS, UNSPECIFIED ORGANISM Status: Resolved Current Visit: Yes Qualifiers: Sepsis type: sepsis due to unspecified organism Sepsis acute organ dysfunction status: with acute organ dysfunction Severe sepsis acute organ dysfunction type: acute renal failure Acute renal failure type: unspecified Severe sepsis shock status: without septic shock Qualified Code(s): A41.9 - Sepsis, unspecified organism; R65.20 - Severe sepsis without septic shock; N17.9 - Acute kidney failure, unspecified (2) Clostridium difficile diarrhea SNOMED Code(s): 7775014354267 ICD Code: A04.72 - ENTEROCOLITIS D/T CLOSTRIDIUM DIFFICILE, NOT SPCF RECUR Status: Acute Current Visit: Yes (3) UTI (urinary tract infection) SNOMED Code(s): 58632907 ICD Code: N39.0 - URINARY TRACT INFECTION, SITE NOT SPECIFIED Status: Acute Current Visit: Yes (4) ZACHERY (acute kidney injury) SNOMED Code(s): 52015456, 92883435 ICD Code: N17.9 - ACUTE KIDNEY FAILURE, UNSPECIFIED Status: Acute Current Visit: Yes (5) Bradycardia SNOMED Code(s): 31370106 ICD Code: R00.1 - BRADYCARDIA, UNSPECIFIED Status: Acute Current Visit: Yes (6) CAD (coronary artery disease) SNOMED Code(s): 42836128 ICD Code: I25.10 - ATHSCL HEART DISEASE OF [place] CORONARY ARTERY W/O ANG PCTRS Status: Chronic Current Visit: Yes (7) Anterior communicating artery aneurysm SNOMED Code(s): 332922573 ICD Code: I67.1 - CEREBRAL ANEURYSM, NONRUPTURED Status: Acute Current Visit: Yes Problem Details: Recent coiling 03/17 (8) Atrial fibrillation SNOMED Code(s): 44171480 ICD Code: I48.91 - UNSPECIFIED ATRIAL FIBRILLATION Status: Chronic Current Visit: No Qualifiers: Atrial fibrillation type: persistent (not longstanding) Qualified Code(s): I48.19 - Other persistent atrial fibrillation; I48.1 - Persistent atrial fibrillation - Patient Summary/Data Consults: Consultations 04/05/20 12:36 PT Evaluation and Treatment [CONS] Routine Hospital Course: Admitting diagnoses: Sepsis C. difficile colitis Bradycardia Hemoccult positive UTI ZACHERY Discharge diagnoses: Sepsis resolved C. difficile colitis Bradycardia resolved ZACHERY resolved Hemoccult positive Other PMH: Atrial fibrillation CAD with PCI Recent DAYNE coiling 02/2020 Robert was admitted secondary to sepsis from C. difficile colitis and possible UTI. He was placed on vancomycin oral tablets with stool studies returned. He was treated with IV fluids for ZACHERY. Lactate was elevated on arrival which improved with IV fluid resuscitation. Bradycardia hypothermia were also noted which really resolved with fluid resuscitation as well. UTI was suspected and started on Rocephin UC returned mixed amara he received 2 days of Rocephin and this was stopped. He was asymptomatic for UTI. He initially was having significant abdominal cramping and then had diarrhea. Diarrhea was noted to have blood in this. CT of his abdomen was obtained which showed colitis of the rectosigmoid and descending colon. Once treatment with vancomycin was started 1 day later bloody stools ceased. He reports that diarrhea have improved significantly. Cramping is no longer there. He is tolerating regular diet well with no nausea vomiting. ZACHERY has resolved and BUN creatinine back to baseline. He will be discharged home on vancomycin 125 mg 4 times daily for another 10 days. He was encouraged to monitor diarrhea This patient I did put the order in as well as fevers chills and nausea and vomiting. During his stay was also noted to have intermittent bradycardia which did improve with initial sepsis resuscitation. He was recently started on diltiazem in [place] after his aneurysm coiling. He was noted to be in atrial fib RVR. Metoprolol initially was stopped diltiazem 240 mg CD was started daily. This was decreased to 120 daily and he has tolerated this well with no significant bradycardia noted. I will discharge him home on diltiazem 120 daily, and for him to monitor his heart rate and blood pressures at home. He is to continue to take his aspirin and Plavix as bleeding has stopped. He was not previously started on any anticoagulation due to risk of falls. He will be discharged home today he is to continue home medications except for Toradol. He reports he was given this for some abdominal pain. Due to recent ZACHERY and bleeding he was educated to stop this but Tylenol is okay. He is to resume Lasix as well as Plavix and aspirin. Diltiazem needs to be cut down to 120 mg daily. I will send him home with home health as he reports he has a lot of medications at home and he is unsure what he is supposed to be taking. Home health will also help with PT OT for strengthening as well as home safety evaluation. - Patient Instructions Diet: Heart Healthy Diet Activity: As Tolerated, No Strenuous Activities Driving: Do Not Drive Showering/Bathing: May Shower Notify Provider of: Fever, Increased Pain, Swelling and Redness, Drainage, Nausea and/or Vomiting - Discharge Plan *PRESCRIPTION DRUG MONITORING PROGRAM REVIEWED*: Not Applicable *COPY OF PRESCRIPTION DRUG MONITORING REPORT IN PATIENT MARY: Not Applicable Prescriptions/Med Rec: Diltiazem [Cardizem CD] 120 mg PO DAILY #30 cap.cd Vancomycin [Vancocin 125 MG Capsule] 125 mg PO Q6H #40 cap Home Medications: Home Meds Aspirin [Low Dose Aspirin EC] 81 tab PO DAILY 09/05/18 [History] Clopidogrel [Plavix] 75 mg PO BEDTIME 09/05/18 [History] Lisinopril 40 mg PO DAILY 09/05/18 [History] Omeprazole 20 mg PO DAILY 09/05/18 [History] atorvaSTATin Calcium [Atorvastatin Calcium] 80 mg PO BEDTIME 09/05/18 [History] Albuterol Sulfate [Proair Digihaler] 2 puff IH Q6H PRN 03/03/20 [History] Budesonide/Formoterol [Symbicort 160-4.5 MCG] 2 puff INH Q12H 03/03/20 [History] Nitroglycerin [Nitrostat] 0.4 mg SL .EVERY 5 MINUTES PRN MDD 3 tablets 03/03/20 [History] Furosemide 20 mg PO DAILY 04/03/20 [History] Lidocaine 5% [Lidoderm 5%] 2 patch TOP Q24H MDD on x 12 hrs, off x 12 hrs 04/03/20 [History] [place]-3 Fatty Acids/Fish Oil [Fish Oil 1,000 mg Capsule] 1,000 mg PO TID 04/03/20 [History] Potassium Chloride [Klor-Con M20] 20 meq PO DAILY 04/03/20 [History] traMADol HCl [Tramadol HCl] 50 mg PO BID PRN 04/03/20 [History] Diltiazem [Cardizem CD] 120 mg PO DAILY #30 cap.cd 04/06/20 [Rx] Vancomycin [Vancocin 125 MG Capsule] 125 mg PO Q6H #40 cap 04/06/20 [Rx] Oxygen Therapy Mode: Room Air Patient Handouts: Bradycardia, Adult, Diltiazem tablets, Sepsis, Self Care, Adult, Vancomycin capsules Referrals: Seymour Tyler NP [Primary Care Provider] - 04/13/20 1:30 pm - Discharge Summary/Plan Comment DC Time >30 min.: No - Patient Data Vitals - Most Recent: Last Vital Signs Temp 98.6 F 04/06/20 07:00 Pulse 77 04/06/20 09:28 Resp 16 04/06/20 07:00 BP 168/75 H 04/06/20 09:28 Pulse Ox 95 04/06/20 07:00 Weight - Most Recent: 49.442 kg I&O - Last 24 hours: Intake & Output 04/05/20 04/06/20 04/06/20 22:59 06:59 14:59 Intake Total 752 Output Total 200 Balance 552 Lab Results - Last 24 hrs: Laboratory Results - last 24 hr 04/06/20 04/06/20 Range/Units 05:52 05:52 WBC 5.52 (4.0-11.0) K/uL RBC 3.53 L (4.50-5.90) M/uL Hgb 10.1 L (13.0-17.0) g/dL Hct 31.4 L (38.0-50.0) % MCV 89.0 (80.0-98.0) fL MCH 28.6 (27.0-32.0) pg MCHC 32.2 (31.0-37.0) g/dL RDW Std Deviation 58.1 (28.0-62.0) fl RDW Coeff of Geoffrey 18 H (11.0-15.0) % Plt Count 150 (150-400) K/uL MPV 10.70 (7.40-12.00) fL Neut % (Auto) 73.8 (48.0-80.0) % Lymph % (Auto) 14.3 L (16.0-40.0) % [place] % (Auto) 10.3 (0.0-15.0) % Eos % (Auto) 1.4 (0.0-7.0) % Baso % (Auto) 0.2 (0.0-1.5) % Neut # (Auto) 4.1 (1.4-5.7) K/uL Lymph # (Auto) 0.8 (0.6-2.4) K/uL [place] # (Auto) 0.6 (0.0-0.8) K/uL Eos # (Auto) 0.1 (0.0-0.7) K/uL Baso # (Auto) 0.0 (0.0-0.1) K/uL Nucleated RBC % 0.0 /100WBC Nucleated RBCs # 0 K/uL Sodium 139 (136-148) mmol/L Potassium 3.4 L (3.5-5.1) mmol/L Chloride 106 (98-107) mmol/L Carbon Dioxide 23.5 (21.0-32.0) mmol/L BUN 8 (7.0-18.0) mg/dL Creatinine 1.5 H (0.8-1.3) mg/dL Est Cr Clr Drug Dosing 29.30 mL/min Estimated GFR (MDRD) 45.5 ml/min Glucose 166 H (74-106) mg/dL Calcium 8.0 L (8.5-10.1) mg/dL Magnesium 1.8 (1.8-2.4) mg/dL LALO Results - Last 24 hrs: Microbiology 04/03/20 08:44 Aerobic Blood Culture - Preliminary Blood - Venous - Lab Draw NO GROWTH AFTER 3 DAYS Anaerobic Blood Culture - Preliminary NO GROWTH AFTER 3 DAYS 04/03/20 08:34 Aerobic Blood Culture - Preliminary Blood - Venous NO GROWTH AFTER 3 DAYS Anaerobic Blood Culture - Preliminary NO GROWTH AFTER 3 DAYS 04/02/20 21:37 Stool Culture - Preliminary Stool / Feces Shiga Toxin I & II - Final Med Orders - Current: Current Medications Acetaminophen (Tylenol) 650 mg PO Q4H PRN PRN Reason: Pain Last Admin: 04/06/20 00:43 Dose: 650 mg Documented by: Albuterol/Ipratropium (Duoneb 3.0-0.5 Mg/3 Ml) 3 ml NEB Q4HRRT PRN PRN Reason: Shortness Of Breath/wheezing Last Admin: 04/06/20 02:32 Dose: 3 ml Documented by: Atorvastatin Calcium (Lipitor) 80 mg PO DAILY [facility] Last Admin: 04/06/20 09:28 Dose: 80 mg Documented by: Diltiazem HCl (Cardizem Cd) 120 mg PO DAILY [facility] Last Admin: 04/06/20 09:28 Dose: 120 mg Documented by: Pantoprazole Sodium 40 mg/ (Sodium Chloride) 10 mls @ 300 mls/hr IV DAILY [facility] Last Admin: 04/06/20 09:28 Dose: 300 mls/hr Documented by: Metronidazole 500 mg/ Premix 100 mls @ 100 mls/hr IV QID [facility] Last Admin: 04/06/20 05:31 Dose: 100 mls/hr Documented by: Morphine Sulfate (Morphine) 2 mg IVPUSH Q4H PRN PRN Reason: Pain Last Admin: 04/05/20 00:13 Dose: 2 mg Documented by: Ondansetron HCl (Zofran) 4 mg IVPUSH Q4H PRN PRN Reason: Nausea Last Admin: 04/04/20 08:57 Dose: 4 mg Documented by: Budesonide/Formoterol [ Symbicort 160-4.5 Mcg] 2 each INH BID [facility] Last Admin: 04/06/20 09:21 Dose: Not Given Documented by: Albuterol Sulfate [ (Proair Digihaler]) 2 each INH Q4HRRT PRN PRN Reason: Dyspnea Vancomycin HCl (Vancocin 125 Mg Capsule) 125 mg PO Q6H [facility] Last Admin: 04/06/20 05:34 Dose: 125 mg Documented by: Discontinued Medications Glucagon (Glucagen) 5 mg IV ONETIME ONE Stop: 04/02/20 20:12 Last Admin: 04/02/20 22:17 Dose: 5 mg Documented by: Sodium Chloride (Normal Saline) 1,000 mls @ 999 mls/hr IV ASDIRECTED [facility] Last Admin: 04/02/20 20:53 Dose: 999 mls/hr Documented by: Lactated Ringer's (Ringers, Lactated) 1,000 mls @ 125 mls/hr IV ASDIRECTED [facility] Last Admin: 04/03/20 01:30 Dose: 125 mls/hr Documented by: Pantoprazole Sodium 40 mg/ (Sodium Chloride) 10 mls @ 300 mls/hr IV ONETIME ONE Stop: 04/03/20 00:18 Last Admin: 04/03/20 01:12 Dose: Not Given Documented by: Ceftriaxone Sodium/Dextrose 1 (gm/ Premix) 50 mls @ 100 mls/hr IV Q24H [facility] Last Admin: 04/04/20 02:33 Dose: 100 mls/hr Documented by: Lactated Ringer's (Ringers, Lactated) 1,000 mls @ 125 mls/hr IV Q8H [facility] Last Admin: 04/03/20 21:20 Dose: 125 mls/hr Documented by: Magnesium Sulfate (Magnesium Sulfate In Water Premix) 4 gm in 100 mls @ 50 mls/hr IV ONETIME ONE Stop: 04/04/20 09:48 Last Admin: 04/04/20 08:28 Dose: 50 mls/hr Documented by: Lactated Ringer's (Ringers, Lactated) 1,000 mls @ 75 mls/hr IV Q13H [facility] Stop: 04/05/20 21:00 Last Admin: 04/05/20 10:32 Dose: Not Given Documented by: Magnesium Sulfate (Magnesium Sulfate In Water Premix) Confirm Administered Dose 2 gm in 50 mls @ as directed .ROUTE .STK-MED ONE Stop: 04/04/20 08:34 Last Admin: 04/04/20 08:37 Dose: Not Given Documented by: Ondansetron HCl (Zofran) Confirm Administered Dose 4 mg .ROUTE .STK-MED ONE Stop: 04/02/20 18:40 Last Admin: 04/02/20 18:45 Dose: Not Given Documented by: Ondansetron HCl (Zofran) 4 mg IVPUSH ONETIME ONE Stop: 04/02/20 18:45 Last Admin: 04/02/20 18:47 Dose: 4 mg Documented by: Ondansetron HCl (Zofran) 4 mg IVPUSH ONETIME ONE Stop: 04/02/20 22:11 Last Admin: 04/02/20 22:15 Dose: 4 mg Documented by: Ondansetron HCl (Zofran) 4 mg IVPUSH Q4H PRN PRN Reason: Nausea/Vomiting Last Admin: 04/03/20 06:29 Dose: 4 mg Documented by: - Exam General: Reports: Alert, Oriented, Cooperative, No Acute Distress Lungs: Reports: Clear to Auscultation, Normal Respiratory Effort Cardiovascular: Reports: Regular Rate, Regular Rhythm GI/Abdominal Exam: Normal Bowel Sounds, Soft, Non-Tender Extremities: Normal Inspection, Normal Range of Motion, Non-Tender, No Pedal Edema Neurological: Reports: No New Focal Deficit Psy/Mental Status: Reports: Alert, Normal Affect, Normal Mood
== END 2020-04-06 12:00 | disposition home health service (06) | DRG 872 ==
LOC: MW.ED 18:34 → MW.MS 23:05 → OBSVTOIN 04-03 09:41 → MW.MS 04-03 11:23
PROVIDERS: ADMIT Student in an Organized Health Care Education/Training Program; ATTEND Student in an Organized Health Care Education/Training Program
DX: A41.9 Sepsis, unspecified organism (principal); N17.9 Acute kidney failure, unspecified; N39.0 Urinary tract infection, site not specified; I48.19 Other persistent atrial fibrillation; A04.72 Enterocolitis due to Clostridium difficile, not specified as recurrent; R65.20 Severe sepsis without septic shock; I25.10 Atherosclerotic heart disease of native coronary artery without angina pectoris; Z66 Do not resuscitate; I67.1 Cerebral aneurysm, nonruptured; Z20.828 Contact with and (suspected) exposure to other viral communicable diseases; J44.9 Chronic obstructive pulmonary disease, unspecified; E78.00 Pure hypercholesterolemia, unspecified; M54.9 Dorsalgia, unspecified; R00.1 Bradycardia, unspecified; Z79.02 Long term (current) use of antithrombotics/antiplatelets; G89.29 Other chronic pain; F17.200 Nicotine dependence, unspecified, uncomplicated; T68.XXXA Hypothermia, initial encounter; I10 Essential (primary) hypertension; Z79.82 Long term (current) use of aspirin; Z79.899 Other long term (current) drug therapy; I25.2 Old myocardial infarction; Z95.5 Presence of coronary angioplasty implant and graft
CPT/HCPCS: 36415; 36430; 71045; 71045-26; 74176; 74176-26; 80048; 80053; 81001; 82272; 82550; 82570; 83605; 83690; 83735; 83880; 84100; 84300; 84443; 84484; 85014; 85018; 85025; 86850; 86900; 86901; 86920; 86921; 86922; 87040; 87045; 87046; 87086; 87324; 87449; 87493; 87899; 93005; 93010; 94640; 96374; 96375; 96376; 97161-GP; 99222; 99232; 99238; 99283; 99285-25; A9270-GY; C9113; J0696; J1610; J2270; J2405; J3475; J3490; J7030; J7120; J7620-GY; P9016; U0002

== ENCOUNTER 2020-08-19 15:52 | Emergency (ER) | payer OTHER ==
--- NOTE | 2020-08-19 16:16 | EDM.PDOC ---
ED HPI GENERAL MEDICAL PROBLEM - General Chief Complaint: General Stated Complaint: SEVERE MIGRAINE, LT LOWER SIDE OF ABDOMIN HURTS Time Seen by Provider: 08/19/20 16:01 Source of Information: Reports: Patient History Limitations: Reports: No Limitations - History of Present Illness INITIAL COMMENTS - FREE TEXT/NARRATIVE: Patient is a 74-year-old male with a history of brain aneurysm presents today for diffuse headache and left-sided rib pain. States the headache started this morning around 3 AM. Patient decided to come in today because of previous provider told him if he had any headache she can get it checked out. Patient on exam has no neurological deficits denies any vision changes numbness weakness in extremities or change in mental status. Patient also mentioned yesterday while in bed he turned to get his phone he hit his ribs against the nightstand. Patient current denies any increased pain with exertion no shortness of breath cough. headache Pain Score (Numeric/FACES): 10 - Related Data Allergies Allergy/AdvReac Type Severity Reaction Status Date / Time No Known Allergies Allergy Verified 08/19/20 16:07 Home Meds: Home Meds Aspirin [Low Dose Aspirin EC] 81 tab PO DAILY 09/05/18 [History] Clopidogrel [Plavix] 75 mg PO BEDTIME 09/05/18 [History] Lisinopril 40 mg PO DAILY 09/05/18 [History] Omeprazole 20 mg PO DAILY 09/05/18 [History] atorvaSTATin Calcium [Atorvastatin Calcium] 80 mg PO BEDTIME 09/05/18 [History] Albuterol Sulfate [Proair Digihaler] 2 puff IH Q6H PRN 03/03/20 [History] Budesonide/Formoterol [Symbicort 160-4.5 MCG] 2 puff INH Q12H 03/03/20 [History] Nitroglycerin [Nitrostat] 0.4 mg SL .EVERY 5 MINUTES PRN MDD 3 tablets 03/03/20 [History] Furosemide 20 mg PO DAILY 04/03/20 [History] Lidocaine 5% [Lidoderm 5%] 2 patch TOP Q24H MDD on x 12 hrs, off x 12 hrs 04/03/20 [History] [place]-3 Fatty Acids/Fish Oil [Fish Oil 1,000 mg Capsule] 1,000 mg PO TID 04/03/20 [History] Potassium Chloride [Klor-Con M20] 20 meq PO DAILY 12/07/20 [History] traMADol HCl [Tramadol HCl] 50 mg PO BID PRN 04/03/20 [History] Diltiazem [Cardizem CD] 120 mg PO DAILY #30 cap.cd 04/06/20 [Rx] Vancomycin [Vancocin 125 MG Capsule] 125 mg PO Q6H #40 cap 04/06/20 [Rx] Past Medical History HEENT History: Reports: None Cardiovascular History: Reports: Afib, High Cholesterol, Hypertension, [place], Stents, Other (See Below) Other Cardiovascular History: nuclear stress test Respiratory History: Reports: Other (See Below) Other Respiratory History: polyp in lung Gastrointestinal History: Reports: None Genitourinary History: Reports: None Musculoskeletal History: Reports: Back Pain, Chronic, Other (See Below) Other Musculoskeletal History: lumbar fxs Neurological History: Reports: None Psychiatric History: Reports: None Endocrine/Metabolic History: Reports: None Hematologic History: Reports: None Immunologic History: Reports: None Oncologic (Cancer) History: Reports: None - Infectious Disease History Infectious Disease History: Reports: None - Past Surgical History Head Surgeries/Procedures: Reports: None HEENT Surgical History: Reports: None Cardiovascular Surgical History: Reports: Coronary Artery Stent, Other (See Be low) Other Cardiovascular Surgeries/Procedures: 5 stents Respiratory Surgical History: Reports: None Male Surgical History: Reports: None Neurological Surgical History: Reports: Other (See Below) Other Neurological Surgeries/Procedures: 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 Musculoskeletal Surgical History: Reports: None Social & Family History - Family History Family Medical History: No Pertinent Family History HEENT: Reports: None - Tobacco Use Packs/Tins Daily: 1 - Caffeine Use Caffeine Use: Reports: None - Recreational Drug Use Recreational Drug Use: No ED ROS GENERAL - Review of Systems Review Of Systems: See Below Constitutional: Reports: No Symptoms HEENT: Reports: No Symptoms Respiratory: Reports: No Symptoms Cardiovascular: Reports: No Symptoms Endocrine: Reports: No Symptoms GI/Abdominal: Reports: No Symptoms : Reports: No Symptoms Musculoskeletal: Reports: No Symptoms Skin: Reports: No Symptoms Neurological: Reports: Headache Psychiatric: Reports: No Symptoms Hematologic/Lymphatic: Reports: No Symptoms Immunologic: Reports: No Symptoms ED EXAM, GENERAL - Physical Exam Exam: See Below Exam Limited By: No Limitations General Appearance: Alert Eye Exam: Bilateral Eye: EOMI, PERRL Throat/Mouth: Normal Inspection Head: Atraumatic, Normocephalic Respiratory/Chest: No Respiratory Distress, Lungs Clear, Normal Breath Sounds Cardiovascular: Normal Peripheral Pulses, Regular Rate, Rhythm GI/Abdominal: Normal Bowel Sounds, Soft, Non-Tender Extremities: Normal Inspection, Normal Range of Motion Neurological: Alert, Oriented, CN II-XII Intact, Normal Cognition #1 Interpretation EKG Date: 08/19/20 Time: 16:03 Rhythm: NSR Rate (Beats/Min): 93 QRS: LBBB ST-T: Normal Course - Vital Signs Last Recorded V/S: Last Vital Signs Temp 99.6 F 08/19/20 15:55 Pulse 87 08/19/20 17:00 Resp 17 08/19/20 16:30 BP 131/71 08/19/20 17:00 Pulse Ox 98 08/19/20 17:00 - Orders/Labs/Meds Orders: Active Orders 24 hr Category Date Time Status EKG Documentation Completion [RC] STAT Care 08/19/20 16:13 Active Labs: Laboratory Tests 08/19/20 08/19/20 Range/Units 16:00 16:00 WBC 7.04 (4.0-11.0) K/uL RBC 3.69 L (4.50-5.90) M/uL Hgb 11.4 L (13.0-17.0) g/dL Hct 34.3 L (38.0-50.0) % MCV 93.0 (80.0-98.0) fL MCH 30.9 (27.0-32.0) pg MCHC 33.2 (31.0-37.0) g/dL RDW Std Deviation 60.7 (28.0-62.0) fl RDW Coeff of Geoffrey 18 H (11.0-15.0) % Plt Count 218 (150-400) K/uL MPV 10.10 (7.40-12.00) fL Neut % (Auto) 85.3 H (48.0-80.0) % Lymph % (Auto) 7.4 L (16.0-40.0) % [place] % (Auto) 6.8 (0.0-15.0) % Eos % (Auto) 0.4 (0.0-7.0) % Baso % (Auto) 0.1 (0.0-1.5) % Neut # (Auto) 6.0 H (1.4-5.7) K/uL Lymph # (Auto) 0.5 L (0.6-2.4) K/uL [place] # (Auto) 0.5 (0.0-0.8) K/uL Eos # (Auto) 0.0 (0.0-0.7) K/uL Baso # (Auto) 0.0 (0.0-0.1) K/uL Nucleated RBC % 0.0 /100WBC Nucleated RBCs # 0 K/uL Sodium 138 (136-148) mmol/L Potassium 4.4 (3.5-5.1) mmol/L Chloride 104 (98-107) mmol/L Carbon Dioxide 21.8 (21.0-32.0) mmol/L BUN 35 H (7.0-18.0) mg/dL Creatinine 1.8 H (0.8-1.3) mg/dL Est Cr Clr Drug Dosing 29.12 mL/min Estimated GFR (MDRD) 36.9 ml/min Glucose 145 H (74-106) mg/dL Calcium 8.7 (8.5-10.1) mg/dL Magnesium 1.8 (1.8-2.4) mg/dL Troponin I < 0.050 (0.000-0.056) ng/mL C-Reactive Protein 2.50 H (0.00-0.90) mg/dL Lipase 72 L (73-393) U/L Meds: Medications Discontinued Medications Generic Name Dose Route Start Last Admin Trade Name Hectorq PRN Reason Stop Dose Admin Diphenhydramine HCl 12.5 mg 08/19/20 17:24 08/19/20 17:31 Diphenhydramine 50 Mg/Ml Sdv IVPUSH 08/19/20 17:25 12.5 mg ONETIME ONE Administration Metoclopramide HCl 10 mg 08/19/20 17:06 08/19/20 17:31 Metoclopramide 10 Mg/2 Ml Sdv IVPUSH 08/19/20 17:07 10 mg ONETIME ONE Administration - Re-Assessments/Exams Free Text/Narrative Re-Assessment/Exam: 08/19/20 17:[address] head negative. Patient again has no neurological deficits. Patient made aware of the possible rib fracture. Patient will be discharged home with an incentive spirometer and follow-up. Departure - Departure Time of Disposition: 18:04 Disposition: Home, Self-Care 01 Condition: Good Clinical Impression: Left rib fracture Headache Qualifiers: Headache type: unspecified Headache chronicity pattern: acute headache Intractability: not intractable Qualified Code(s): R51.9 - Headache, unspecified - Discharge Information *PRESCRIPTION DRUG MONITORING PROGRAM REVIEWED*: Not Applicable *COPY OF PRESCRIPTION DRUG MONITORING REPORT IN PATIENT MARY: Not Applicable Instructions: General Headache Without Cause, Rib Fracture, [id number] Referrals: PCP,None [Primary Care Provider] - Forms: ED Department Discharge Additional Instructions: The following information is given to patients seen in the emergency department who are being discharged to home. This information is to outline your options for follow-up care. We provide all patients seen in our emergency department with a follow-up referral. The need for follow-up, as well as the timing and circumstances, are variable depending upon the specifics of your emergency department visit. If you don't have a primary care physician on staff, we will provide you with a referral. We always advise you to contact your personal physician following an emergency department visit to inform them of the circumstance of the visit and for follow-up with them and/or the need for any referrals to a consulting specialist. The emergency department will also refer you to a specialist when appropriate. This referral assures that you have the opportunity for follow-up care with a specialist. All of these measure are taken in an effort to provide you with optimal care, which includes your follow-up. Under all circumstances we always encourage you to contact your private physician who remains a resource for coordinating your care. When calling for follow-up care, please make the office aware that this follow-up is from your recent emergency room visit. If for any reason you are refused follow-up, please contact the [facility] Emergency Department at and asked to speak to the emergency department charge nurse. Please follow up with your primary care physician. If you do not have a primary care physician, see below: [facility] [address] [place] [id number] [place] [address] You were seen today for headache we did a CT scan of your head that was n egative. You had no neurological deficits on exam. You also had some left- sided rib pain and you have a possible left fifth rib fracture. For this it is mainly just pain control and make sure you take a few deep breaths every hour. If you develop any difficulty breathing or vision changes numbness weakness to any extremities please return to the ED immediately. Sepsis Event Note (ED) - Evaluation Sepsis Screening Result: No Definite Risk - Focused Exam Vital Signs: Vital Signs Temp Pulse Resp BP Pulse Ox 08/19/20 17:00 87 131/71 98 08/19/20 16:30 89 17 123/68 97 08/19/20 15:55 99.6 F 99 18 123/75 98 - My Orders Last 24 Hours: My Active Orders 08/19/20 16:13 EKG Documentation Completion [RC] STAT - Assessment/Plan Last 24 Hours: My Active Orders 08/19/20 16:13 EKG Documentation Completion [RC] STAT Plan: Patient is a 74-year-old male who presents today for headache and rib pain. Patient does have any neurological deficits but will obtain a CT scan of his head. This far as patient rib pain patient hit his ribs last night has no signs of any cardiac involvement. We did obtain EKG and troponins.
[2020-08-19 16:47] LABS: BLOOD UREA NITROGEN,BUN 35 mg/dL (7.0-18.0); CARBON DIOXIDE,CO2 21.8 mmol/L (21.0-32.0); CHLORIDE,CL 104 mmol/L (98-107); GLUCOSE RANDOM 145 mg/dL (74-106); LIPASE 72 U/L (73-393); POTASSIUM,K 4.4 mmol/L (3.5-5.1); SODIUM,NA 138 mmol/L (136-148)
[2020-08-19] MEDS ORDERED: Metoclopramide 10 MG/2 ML SDV IVPUSH ONE (17:06)
[2020-08-19] MEDS ORDERED: diphenhydrAMINE 50 MG/ML SDV IVPUSH ONE (17:24)
--- NOTE | 2020-08-19 17:28 | CT ---
INDICATION: Headache. History of aneurysm. TECHNIQUE: CT head without contrast. COMPARISON: 03/02/2020 FINDINGS: CSF spaces: Prominence of ventricles and sulci similar prior likely due to age related volume loss. Brain parenchyma: No mass, hemorrhage or midline shift. Metallic aneurysm coil with adjacent artifact is similar to prior exam. Mild chronic small vessel ischemic changes are similar to prior. Skull base and calvarium: The visualized paranasal sinuses and mastoid air cells demonstrate no acute or significant findings. The visualized orbits are grossly unremarkable. No skull fractures. IMPRESSION: No acute intracranial abnormality. Please note that all CT scans at this facility use dose modulation, iterative reconstruction, and/or weight-based dosing when appropriate to reduce radiation dose to as low as reasonably achievable. Dictated by Milo Hope MD @ 08/19/2020 5:27:[address] Milo Hope @ Aug 19 2020 5:27PM
--- NOTE | 2020-08-19 17:30 | CR ---
INDICATION: Left-sided rib pain for 5 days. COMPARISON: 04/02/2020. TECHNIQUE: Chest single view, left ribs 2 views. FINDINGS: Cardiomediastinal silhouette is within normal limits. No focal lung consolidation, pleural effusion or pneumothorax. Question of minimally displaced left lateral 5th rib fracture. IMPRESSION: Possible minimally displaced left lateral 5th rib fracture. Dictated by Milo Hope MD @ 08/19/2020 5:29:[address] Milo Hope @ Aug 19 2020 5:29PM
[2020-08-19 18:23] VITALS: BP 126/77; PULSE 89
== END 2020-08-19 18:31 | disposition home or self-care (01) ==
LOC: MW.ED 15:52
DX: S22.32XA Fracture of one rib, left side, initial encounter for closed fracture (principal); R51.9 Headache, unspecified; I48.91 Unspecified atrial fibrillation; E78.00 Pure hypercholesterolemia, unspecified; I10 Essential (primary) hypertension; I25.2 Old myocardial infarction; Z95.5 Presence of coronary angioplasty implant and graft; Z79.82 Long term (current) use of aspirin; Z79.02 Long term (current) use of antithrombotics/antiplatelets; Z79.899 Other long term (current) drug therapy; Z72.0 Tobacco use; W22.8XXA Striking against or struck by other objects, initial encounter
CPT/HCPCS: 36415; 70450; 71101; 80048; 83690; 83735; 84484; 85025; 86140; 93005; 96374; 96375; 99284; J1200; J2765; 93010; 99283

== ENCOUNTER 2020-10-06 15:03 | Emergency (ER) | payer OTHER ==
[2020-10-06] MEDS ORDERED: Sodium Chloride 0.9% 2.5 ML Syringe FLUSH PRN (15:21)
[2020-10-06] MEDS ORDERED: Sodium Chloride 0.9% 10 ML Syringe FLUSH PRN (15:21)
[2020-10-06] MEDS ORDERED: Albuterol/Ipratropium 3.0-0.5 MG/3 ML Neb Soln NEB ONE (15:23)
[2020-10-06] MEDS ORDERED: Aspirin 81 MG Tab.Chew PO ONE (15:23)
--- NOTE | 2020-10-06 15:28 | EDM.PDOC ---
ED HPI GENERAL MEDICAL PROBLEM - General Chief Complaint: Chest Pain Stated Complaint: CP Time Seen by Provider: 10/06/20 15:08 Source of Information: Reports: Patient History Limitations: Reports: No Limitations - History of Present Illness INITIAL COMMENTS - FREE TEXT/NARRATIVE: 74-year-old male past medical history CAD status post stents with last stent placed last year, cerebral aneurysm status post coiling procedure last year, atrial fibrillation, COPD not on home oxygen, hypertension presents for chest pain. Patient states that he woke up this morning and noticed a heaviness in his left-sided chest. It does not radiate. It has been constant throughout the day. It is a little bit better now than when it first started. He has baseline shortness of breath secondary to COPD and notes this is unchanged. No nausea, vomiting, diaphoresis. chest pain Pain Score (Numeric/FACES): 3 - Related Data Allergies Allergy/AdvReac Type Severity Reaction Status Date / Time No Known Allergies Allergy Verified 10/06/20 15:23 Home Meds: Home Meds Aspirin [Low Dose Aspirin EC] 81 tab PO DAILY 09/05/18 [History] Clopidogrel [Plavix] 75 mg PO BEDTIME 09/05/18 [History] Lisinopril 40 mg PO DAILY 09/05/18 [History] Omeprazole 20 mg PO DAILY 09/05/18 [History] atorvaSTATin Calcium [Atorvastatin Calcium] 80 mg PO BEDTIME 09/05/18 [History] Albuterol Sulfate [Proair Digihaler] 2 puff IH Q6H PRN 03/03/20 [History] Budesonide/Formoterol [Symbicort 160-4.5 MCG] 2 puff INH Q12H 03/03/20 [History] Nitroglycerin [Nitrostat] 0.4 mg SL .EVERY 5 MINUTES PRN MDD 3 tablets 03/03/20 [History] Furosemide 20 mg PO DAILY 04/03/20 [History] Lidocaine 5% [Lidoderm 5%] 2 patch TOP Q24H MDD on x 12 hrs, off x 12 hrs 04/03/20 [History] [place]-3 Fatty Acids/Fish Oil [Fish Oil 1,000 mg Capsule] 1,000 mg PO TID 04/03/20 [History] Potassium Chloride [Klor-Con M20] 20 meq PO DAILY 04/03/20 [History] traMADol HCl [Tramadol HCl] 50 mg PO BID PRN 04/03/20 [History] Diltiazem [Cardizem CD] 120 mg PO DAILY #30 cap.cd 04/06/20 [Rx] Vancomycin [Vancocin 125 MG Capsule] 125 mg PO Q6H #40 cap 04/06/20 [Rx] Past Medical History HEENT History: Reports: None Cardiovascular History: Reports: Afib, High Cholesterol, Hypertension, [place], Stents, Other (See Below) Other Cardiovascular History: nuclear stress test Respiratory History: Reports: Other (See Below) Other Respiratory History: polyp in lung Gastrointestinal History: Reports: None Genitourinary History: Reports: None Musculoskeletal History: Reports: Back Pain, Chronic, Other (See Below) Other Musculoskeletal History: lumbar fxs Neurological History: Reports: None Psychiatric History: Reports: None Endocrine/Metabolic History: Reports: None Hematologic History: Reports: None Immunologic History: Reports: None Oncologic (Cancer) History: Reports: None - Infectious Disease History Infectious Disease History: Reports: None - Past Surgical History Head Surgeries/Procedures: Reports: None HEENT Surgical History: Reports: None Cardiovascular Surgical History: Reports: Coronary Artery Stent, Other (See Below) Other Cardiovascular Surgeries/Procedures: 5 stents Respiratory Surgical History: Reports: None Male Surgical History: Reports: None Neurological Surgical History: Reports: Other (See Below) Other Neurological Surgeries/Procedures: 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 Musculoskeletal Surgical History: Reports: None Social & Family History - Family History Family Medical History: No Pertinent Family History HEENT: Reports: None - Caffeine Use Caffeine Use: Reports: None ED ROS GENERAL - Review of Systems Review Of Systems: Comprehensive ROS is negative, except as noted in HPI. ED EXAM, GENERAL - Physical Exam Exam: See Below General Appearance: Alert, WD/WN, No Apparent Distress Throat/Mouth: Normal Voice, No Airway Compromise Head: Atraumatic, Normocephalic Neck: Normal Inspection Respiratory/Chest: No Respiratory Distress, Lungs Clear, Normal Breath Sounds, No Accessory Muscle Use Cardiovascular: Normal Peripheral Pulses, Regular Rate, Rhythm, No Edema GI/Abdominal: Soft, Non-Tender Extremities: Normal Inspection Neurological: Alert, Normal Gait Psychiatric: Normal Affect, Normal Mood Skin Exam: Warm, Dry, Intact, Normal Color #1 Interpretation EKG Date: 10/06/20 Time: 15:00 Rhythm: NSR Rate (Beats/Min): 84 [place]: Normal P-Wave: Present QRS: Normal ST-T: Normal QT: Normal NC/PQ Interval: 156 Comparison: No Change EKG Interpretation Comments: Left bundle branch block seen on prior EKG, no acute ischemic changes identified Course - Vital Signs Last Recorded V/S: Last Vital Signs Temp 96.8 F L 10/06/20 15:23 Pulse 65 10/06/20 16:31 Resp 17 10/06/20 16:31 BP 98/54 L 10/06/20 16:31 Pulse Ox 95 10/06/20 16:31 - Orders/Labs/Meds Orders: Active Orders 24 hr Category Date Time Status EKG Documentation Completion [RC] STAT Care 10/06/20 15:21 Active RT Aerosol Therapy [RC] ASDIRECTED Care 10/06/20 15:23 Active Sodium Chloride 0.9% [Saline Flush] Med 10/06/20 15:21 Active 10 ml FLUSH ASDIRECTED PRN Sodium Chloride 0.9% [Saline Flush] Med 10/06/20 15:21 Active 2.5 ml FLUSH ASDIRECTED PRN Saline Lock Insert [OM.PC] Stat Oth 10/06/20 15:22 Ordered Medication Orders Sodium Chloride (Sodium Chloride 0.9% 10 Ml Syringe) 10 ml FLUSH ASDIRECTED PRN PRN Reason: Keep Vein Open Last Admin: 10/06/20 15:43 Dose: 10 ml Documented by: IGLESIA Sodium Chloride (Sodium Chloride 0.9% 2.5 Ml Syringe) 2.5 ml FLUSH ASDIRECTED PRN PRN Reason: Keep Vein Open Last Admin: 10/06/20 15:43 Dose: 2.5 ml Documented by: IGLESIA Labs: Laboratory Tests 10/06/20 10/06/20 Range/Units 15:10 15:10 WBC 6.32 (4.0-11.0) K/uL RBC 3.79 L (4.50-5.90) M/uL Hgb 11.4 L (13.0-17.0) g/dL Hct 34.4 L (38.0-50.0) % MCV 90.8 (80.0-98.0) fL MCH 30.1 (27.0-32.0) pg MCHC 33.1 (31.0-37.0) g/dL RDW Std Deviation 57.2 (28.0-62.0) fl RDW Coeff of Geoffrey 17 H (11.0-15.0) % Plt Count 252 (150-400) K/uL MPV 10.20 (7.40-12.00) fL Neut % (Auto) 56.8 (48.0-80.0) % Lymph % (Auto) 26.4 (16.0-40.0) % [place] % (Auto) 12.3 (0.0-15.0) % Eos % (Auto) 4.0 (0.0-7.0) % Baso % (Auto) 0.5 (0.0-1.5) % Neut # (Auto) 3.6 (1.4-5.7) K/uL Lymph # (Auto) 1.7 (0.6-2.4) K/uL [place] # (Auto) 0.8 (0.0-0.8) K/uL Eos # (Auto) 0.3 (0.0-0.7) K/uL Baso # (Auto) 0.0 (0.0-0.1) K/uL Nucleated RBC % 0.0 /100WBC Nucleated RBCs # 0 K/uL Sodium 139 (136-148) mmol/L Potassium 3.8 (3.5-5.1) mmol/L Chloride 103 (98-107) mmol/L Carbon Dioxide 24.9 (21.0-32.0) mmol/L BUN 44 H (7.0-18.0) mg/dL Creatinine 1.9 H (0.8-1.3) mg/dL Est Cr Clr Drug Dosing 22.92 mL/min Estimated GFR (MDRD) 34.6 ml/min Glucose 82 (74-106) mg/dL Calcium 9.4 (8.5-10.1) mg/dL Magnesium 2.2 (1.8-2.4) mg/dL Total Bilirubin 0.3 (0.2-1.0) mg/dL AST 19 (15-37) IU/L ALT 22 (14-63) IU/L Alkaline Phosphatase 98 (46-116) U/L Troponin I < 0.050 (0.000-0.056) ng/mL Total Protein 7.4 (6.4-8.2) g/dL Albumin 3.1 L (3.4-5.0) g/dL Globulin 4.3 H (2.6-4.0) g/dL Albumin/Globulin Ratio 0.7 L (0.9-1.6) Meds: Medications Generic Name Dose Route Start Last Admin Trade Name Freq PRN Reason Stop Dose Admin Sodium Chloride 10 ml 10/06/20 15:21 10/06/20 15:43 Sodium Chloride 0.9% 10 Ml Syringe FLUSH 10 ml ASDIRECTED PRN Administration Keep Vein Open Sodium Chloride 2.5 ml 10/06/20 15:21 10/06/20 15:43 Sodium Chloride 0.9% 2.5 Ml Syringe FLUSH 2.5 ml ASDIRECTED PRN Administration Keep Vein Open Discontinued Medications Generic Name Dose Route Start Last Admin Trade Name Freq PRN Reason Stop Dose Admin Albuterol/Ipratropium 3 ml 10/06/20 15:23 10/06/20 15:40 Albuterol/Ipratropium 3.0-0.5 Mg/3 Ml Neb Soln NEB 10/06/20 15:24 3 ml ONETIME ONE Administration Aspirin 324 mg 10/06/20 15:23 10/06/20 15:43 Aspirin 81 Mg Tab.Chew PO 10/06/20 15:24 324 mg ONETIME ONE Administration - Re-Assessments/Exams Free Text/Narrative Re-Assessment/Exam: 10/06/20 16:40 Labs are unremarkable; patient denies any current CP and notes that breathing treatment worked very well. Discussed observation admission versus discharge home, patient would prefer to go home and agrees to follow-up with his veneer gluer. Patient agrees to return to the emergency department for any new chest pains or difficulty breathing Departure - Departure Time of Disposition: 16:40 Disposition: Home, Self-Care 01 Condition: Good Clinical Impression: Chest pain Qualifiers: Chest pain type: unspecified Qualified Code(s): R07.9 - Chest pain, unspecified - Discharge Information Instructions: Nonspecific Chest Pain, Adult Forms: ED Department Discharge Additional Instructions: Your labs were unremarkable. Your troponin level was negative. This is a blood test that we used to look for signs of damage to the heart muscle. I still would like you to follow-up with your veneer gluer as soon as he possibly can. And if your pain returns then you should come back to the hospital. The following information is given to patients seen in the emergency department who are being discharged to home. This information is to outline your options for follow-up care. We provide all patients seen in our emergency department with a follow-up referral. The need for follow-up, as well as the timing and circumstances, are variable depending upon the specifics of your emergency department visit. If you don't have a primary care physician on staff, we will provide you with a referral. We always advise you to contact your personal physician following an emergency department visit to inform them of the circumstance of the visit and for follow-up with them and/or the need for any referrals to a consulting specialist. The emergency department will also refer you to a specialist when appropriate. This referral assures that you have the opportunity for follow-up care with a specialist. All of these measure are taken in an effort to provide you with optimal care, which includes your follow-up. Under all circumstances we always encourage you to contact your private physician who remains a resource for coordinating your care. When calling for follow-up care, please make the office aware that this follow-up is from your recent emergency room visit. If for any reason you are refused follow-up, please contact the [facility] Emergency Department at and asked to speak to the emergency department charge nurse. Please follow up with your primary care physician. If you do not have a primary care physician, see below: [facility] [address] [place] [id number] [facility] [address] [place] [address] [facility] [address] [place] [id number] Sepsis Event Note (ED) - Evaluation Sepsis Screening Result: No Definite Risk - Focused Exam Vital Signs: Vital Signs Temp Pulse Resp BP Pulse Ox 10/06/20 16:31 65 17 98/54 L 95 10/06/20 15:23 96.8 F L 79 18 113/66 98 - My Orders Last 24 Hours: My Active Orders 10/06/20 15:21 EKG Documentation Completion [RC] STAT Sodium Chloride 0.9% [Saline Flush] 10 ml FLUSH ASDIRECTED PRN Sodium Chloride 0.9% [Saline Flush] 2.5 ml FLUSH ASDIRECTED PRN 10/06/20 15:22 Saline Lock Insert [OM.PC] Stat 10/06/20 15:23 RT Aerosol Therapy [RC] ASDIRECTED - Assessment/Plan Last 24 Hours: My Active Orders 10/06/20 15:21 EKG Documentation Completion [RC] STAT Sodium Chloride 0.9% [Saline Flush] 10 ml FLUSH ASDIRECTED PRN Sodium Chloride 0.9% [Saline Flush] 2.5 ml FLUSH ASDIRECTED PRN 10/06/20 15:22 Saline Lock Insert [OM.PC] Stat 10/06/20 15:23 RT Aerosol Therapy [RC] ASDIRECTED
[2020-10-06 16:01] LABS: BLOOD UREA NITROGEN,BUN 44 mg/dL (7.0-18.0); CARBON DIOXIDE,CO2 24.9 mmol/L (21.0-32.0); CHLORIDE,CL 103 mmol/L (98-107); GLUCOSE RANDOM 82 mg/dL (74-106); POTASSIUM,K 3.8 mmol/L (3.5-5.1); SODIUM,NA 139 mmol/L (136-148)
--- NOTE | 2020-10-06 16:08 | CR ---
INDICATION: Chest pain. TECHNIQUE: Chest 1 view. COMPARISON: Chest radiograph 04/02/2020. FINDINGS: No focal consolidation, pleural effusion, or pneumothorax. Chronic minimal scarring in the costophrenic angles bilaterally. Pulmonary hyperinflation. Normal heart size and pulmonary vascularity. The bones are unremarkable. IMPRESSION: 1. No acute cardiopulmonary findings. 2. Pulmonary hyperinflation. Dictated by Regla Ruiz MD @ 10/06/2020 4:06:[address] Regla Ruiz @ Oct 06 2020 4:06PM
[2020-10-06 16:32] VITALS: PULSE 65
[2020-10-06 16:58] VITALS: BP 111/55
== END 2020-10-06 16:55 | disposition home or self-care (01) ==
LOC: MW.ED 15:03
DX: R07.89 Other chest pain (principal); E78.00 Pure hypercholesterolemia, unspecified; I10 Essential (primary) hypertension; I25.2 Old myocardial infarction; Z95.5 Presence of coronary angioplasty implant and graft; Z79.82 Long term (current) use of aspirin
CPT/HCPCS: 36415; 71045; 80053; 83735; 84484; 85025; 93005; 94640; 99285; A9270; 93010; 99283; J7620-GY

== ENCOUNTER 2020-11-05 23:45 | Observation (INO) | payer OTHER ==
[2020-11-05] MEDS ORDERED: Sodium Chloride 0.9% 2.5 ML Syringe FLUSH PRN (23:49)
[2020-11-05] MEDS ORDERED: Sodium Chloride 0.9% 10 ML Syringe FLUSH PRN (23:49)
[2020-11-05] MEDS ORDERED: Sodium Chloride 0.9% 10 ML SDV IV PRN (23:49)
--- NOTE | 2020-11-05 23:52 | EDM.PDOC ---
ED HPI GENERAL MEDICAL PROBLEM - General Chief Complaint: Chest Pain Stated Complaint: PAIN IN THROAT TIGHTNESS IN CHEST Time Seen by Provider: 11/05/20 23:49 Source of Information: Reports: Patient History Limitations: Reports: No Limitations - History of Present Illness INITIAL COMMENTS - FREE TEXT/NARRATIVE: 74-year-old male with history of carotid stenosis with right carotid stent, sternal fracture, ACS, NSTEMI, rib fractures, LBBB presents with neck pain and chest pain. He notes intermittent pressure sensation to his neck diffusely since Friday, rating 8/10. He denies dysphagia, sore throat, runny nose, cough, fever, chills. At 6 PM today he started developing anterior chest pressure sensation that is constant and diffuse, currently rated 8/10. Pain is pleuritic, associated with nausea, radiation to the upper back. He denies palpitations, abdominal pain, headache, vomiting. ROS: A 10-point review of systems, other than pertinent positives and negatives as stated per HPI, is otherwise negative Past medical history: No additional pertinent history Past Surgical history: No additional pertinent history Social history: No additional pertinent history Family history: No additional pertinent history PHYSICAL EXAM General: AOx4, GCS = 15, No distress HEENT: dry mucous membrane Neck: supple, no meningismus, no Kernig or Brudzinski Cardiac: S1S2 RRR Respiratory: CTAB, no crackles or rales, no wheezing Abdomen: Soft, nontender, no rebound or guarding, nondistended, no pulsatile mass. Back: nontender Musculoskeletal: NVI distally, no deformity Neuro: No focal deficits, CN 2 - 12 WNL. chest Pain Score (Numeric/FACES): 8 - Related Data Allergies Allergy/AdvReac Type Severity Reaction Status Date / Time No Known Allergies Allergy Verified 11/05/20 23:50 Home Meds: Home Meds Aspirin [Low Dose Aspirin EC] 81 tab PO DAILY 09/05/18 [History] Clopidogrel [Plavix] 75 mg PO BEDTIME 09/05/18 [History] Lisinopril 40 mg PO DAILY 09/05/18 [History] Omeprazole 20 mg PO DAILY 09/05/18 [History] atorvaSTATin Calcium [Atorvastatin Calcium] 80 mg PO BEDTIME 09/05/18 [History] Albuterol Sulfate [Proair Digihaler] 2 puff IH Q6H PRN 03/03/20 [History] Budesonide/Formoterol [Symbicort 160-4.5 MCG] 2 puff INH Q12H 03/03/20 [History] Nitroglycerin [Nitrostat] 0.4 mg SL .EVERY 5 MINUTES PRN MDD 3 tablets 03/03/20 [History] Furosemide 20 mg PO DAILY 04/03/20 [History] Lidocaine 5% [Lidoderm 5%] 2 patch TOP Q24H MDD on x 12 hrs, off x 12 hrs 04/03/20 [History] Streetman-3 Fatty Acids/Fish Oil [Fish Oil 1,000 mg Capsule] 1,000 mg PO TID 04/03/20 [History] Potassium Chloride [Klor-Con M20] 20 meq PO DAILY 04/03/20 [History] traMADol HCl [Tramadol HCl] 50 mg PO BID PRN 04/03/20 [History] Diltiazem [Cardizem CD] 120 mg PO DAILY #30 cap.cd 04/06/20 [Rx] Vancomycin [Vancocin 125 MG Capsule] 125 mg PO Q6H #40 cap 04/06/20 [Rx] Past Medical History HEENT History: Reports: None Cardiovascular History: Reports: Afib, High Cholesterol, Hypertension, [place], Stents, Other (See Below) Other Cardiovascular History: nuclear stress test Respiratory History: Reports: Other (See Below) Other Respiratory History: polyp in lung Gastrointestinal History: Reports: None Genitourinary History: Reports: None Musculoskeletal History: Reports: Back Pain, Chronic, Other (See Below) Other Musculoskeletal History: lumbar fxs Neurological History: Reports: None Psychiatric History: Reports: None Endocrine/Metabolic History: Reports: None Hematologic History: Reports: None Immunologic History: Reports: None Oncologic (Cancer) History: Reports: None Dermatologic History: Reports: None - Infectious Disease History Infectious Disease History: Reports: None - Past Surgical History Head Surgeries/Procedures: Reports: None HEENT Surgical History: Reports: None Cardiovascular Surgical History: Reports: Coronary Artery Stent, Other (See Below) Other Cardiovascular Surgeries/Procedures: 5 stents Respiratory Surgical History: Reports: None Male Surgical History: Reports: None Neurological Surgical History: Reports: Other (See Below) Other Neurological Surgeries/Procedures: 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 shun t placement Musculoskeletal Surgical History: Reports: None Social & Family History - Family History Family Medical History: No Pertinent Family History HEENT: Reports: None - Caffeine Use Caffeine Use: Reports: None ED ROS GENERAL - Review of Systems Review Of Systems: See Below (see dictation) ED EXAM, GENERAL - Physical Exam Exam: See Below (see dictation) #1 Interpretation EKG Interpretation Comments: Heart rate = 77 bpm, normal sinus rhythm, normal QRS interval, no STEMI. EKG and rhythm strip interpreted by me at 1150 Course - Vital Signs Last Recorded V/S: Last Vital Signs Temp 97.0 F 11/05/20 23:50 Pulse 66 11/06/20 02:45 Resp 18 11/06/20 02:45 BP 133/49 L 11/06/20 02:45 Pulse Ox 97 11/06/20 02:45 - Orders/Labs/Meds Orders: Active Orders 24 hr Category Date Time Status Patient Status [ADT] Routine ADT 11/06/20 05:23 Ordered Cardiac Monitoring [RC] . DIRECTED Care 11/05/20 23:50 Active EKG Documentation Completion [RC] STAT Care 11/05/20 23:49 Active Pulse Oximetry [RC] CONTINUOUS Care 11/05/20 23:50 Active Nitroglycerin [Nitrostat] Med 11/06/20 00:35 Active 0.4 mg SL Q5M PRN Sodium Chloride 0.9% [Normal Saline] Med 11/05/20 23:49 Active 10 ml IV ASDIRECTED PRN Sodium Chloride 0.9% [Saline Flush] Med 11/05/20 23:49 Active 10 ml FLUSH ASDIRECTED PRN Sodium Chloride 0.9% [Saline Flush] Med 11/05/20 23:49 Active 2.5 ml FLUSH ASDIRECTED PRN Peripheral IV Insertion Adult [OM.PC] Stat Oth 11/05/20 23:49 Ordered Medication Orders Nitroglycerin (Nitroglycerin 0.4 Mg Tab.Sl) 0.4 mg SL Q5M PRN PRN Reason: Chest Pain Last Admin: 11/06/20 01:40 Dose: 0.4 mg Documented by: [email or web address] Sodium Chloride (Sodium Chloride 0.9% 10 Ml Syringe) 10 ml FLUSH ASDIRECTED PRN PRN Reason: Keep Vein Open Sodium Chloride (Sodium Chloride 0.9% 2.5 Ml Syringe) 2.5 ml FLUSH ASDIRECTED PRN PRN Reason: Keep Vein Open Sodium Chloride (Sodium Chloride 0.9% 10 Ml Sdv) 10 ml IV ASDIRECTED PRN PRN Reason: IV Use Labs: Laboratory Tests 11/05/20 11/05/20 11/05/20 Range/Units 23:48 23:48 23:48 WBC (4.0-11.0) K/uL RBC (4.50-5.90) M/uL Hgb (13.0-17.0) g/dL Hct (38.0-50.0) % MCV (80.0-98.0) fL MCH (27.0-32.0) pg MCHC (31.0-37.0) g/dL RDW Std Deviation (28.0-62.0) fl RDW Coeff of Geoffrey (11.0-15.0) % Plt Count (150-400) K/uL MPV (7.40-12.00) fL Neut % (Auto) (48.0-80.0) % Lymph % (Auto) (16.0-40.0) % [place] % (Auto) (0.0-15.0) % Eos % (Auto) (0.0-7.0) % Baso % (Auto) (0.0-1.5) % Neut # (Auto) (1.4-5.7) K/uL Lymph # (Auto) (0.6-2.4) K/uL [place] # (Auto) (0.0-0.8) K/uL Eos # (Auto) (0.0-0.7) K/uL Baso # (Auto) (0.0-0.1) K/uL Nucleated RBC % /100WBC Nucleated RBCs # K/uL INR 0.98 APTT 23.0 (18.6-31.3) SEC Sodium 137 (136-148) mmol/L Potassium 4.7 (3.5-5.1) mmol/L Chloride 103 (98-107) mmol/L Carbon Dioxide 24.5 (21.0-32.0) mmol/L BUN 37 H (7.0-18.0) mg/dL Creatinine 1.8 H (0.8-1.3) mg/dL Est Cr Clr Drug Dosing 25.09 mL/min Estimated GFR (MDRD) 36.9 ml/min Glucose 88 (74-106) mg/dL Calcium 8.5 (8.5-10.1) mg/dL Total Bilirubin 0.4 (0.2-1.0) mg/dL AST 27 (15-37) IU/L ALT 24 (14-63) IU/L Alkaline Phosphatase 94 (46-116) U/L Creatine Kinase (26-308) U/L Troponin I < 0.050 (0.000-0.056) ng/mL B-Natriuretic Peptide 92 (<100) PG/ML Total Protein 7.2 (6.4-8.2) g/dL Albumin 3.0 L (3.4-5.0) g/dL Globulin 4.2 H (2.6-4.0) g/dL Albumin/Globulin Ratio 0.7 L (0.9-1.6) SARS-CoV-2 RNA (KATHARINA) (NEGATIVE) 11/05/20 11/05/20 11/06/20 Range/Units 23:48 23:49 00:00 WBC 8.93 (4.0-11.0) K/uL RBC 3.77 L (4.50-5.90) M/uL Hgb 11.3 L (13.0-17.0) g/dL Hct 33.5 L (38.0-50.0) % MCV 88.9 (80.0-98.0) fL MCH 30.0 (27.0-32.0) pg MCHC 33.7 (31.0-37.0) g/dL RDW Std Deviation 56.4 (28.0-62.0) fl RDW Coeff of Geoffrey 17 H (11.0-15.0) % Plt Count 228 (150-400) K/uL MPV 10.50 (7.40-12.00) fL Neut % (Auto) 58.8 (48.0-80.0) % Lymph % (Auto) 21.8 (16.0-40.0) % [place] % (Auto) 15.5 H (0.0-15.0) % Eos % (Auto) 3.6 (0.0-7.0) % Baso % (Auto) 0.3 (0.0-1.5) % Neut # (Auto) 5.3 (1.4-5.7) K/uL Lymph # (Auto) 2.0 (0.6-2.4) K/uL [place] # (Auto) 1.4 H (0.0-0.8) K/uL Eos # (Auto) 0.3 (0.0-0.7) K/uL Baso # (Auto) 0.0 (0.0-0.1) K/uL Nucleated RBC % 0.0 /100WBC Nucleated RBCs # 0 K/uL INR APTT (18.6-31.3) SEC Sodium (136-148) mmol/L Potassium (3.5-5.1) mmol/L Chloride (98-107) mmol/L Carbon Dioxide (21.0-32.0) mmol/L BUN (7.0-18.0) mg/dL Creatinine (0.8-1.3) mg/dL Est Cr Clr Drug Dosing mL/min Estimated GFR (MDRD) ml/min Glucose (74-106) mg/dL Calcium (8.5-10.1) mg/dL Total Bilirubin (0.2-1.0) mg/dL AST (15-37) IU/L ALT (14-63) IU/L Alkaline Phosphatase (46-116) U/L Creatine Kinase 124 (26-308) U/L Troponin I (0.000-0.056) ng/mL B-Natriuretic Peptide (<100) PG/ML Total Protein (6.4-8.2) g/dL Albumin (3.4-5.0) g/dL Globulin (2.6-4.0) g/dL Albumin/Globulin Ratio (0.9-1.6) SARS-CoV-2 RNA (KATHARINA) NEGATIVE (NEGATIVE) 11/06/20 Range/Units 04:00 WBC (4.0-11.0) K/uL RBC (4.50-5.90) M/uL Hgb (13.0-17.0) g/dL Hct (38.0-50.0) % MCV (80.0-98.0) fL MCH (27.0-32.0) pg MCHC (31.0-37.0) g/dL RDW Std Deviation (28.0-62.0) fl RDW Coeff of Geoffrey (11.0-15.0) % Plt Count (150-400) K/uL MPV (7.40-12.00) fL Neut % (Auto) (48.0-80.0) % Lymph % (Auto) (16.0-40.0) % [place] % (Auto) (0.0-15.0) % Eos % (Auto) (0.0-7.0) % Baso % (Auto) (0.0-1.5) % Neut # (Auto) (1.4-5.7) K/uL Lymph # (Auto) (0.6-2.4) K/uL [place] # (Auto) (0.0-0.8) K/uL Eos # (Auto) (0.0-0.7) K/uL Baso # (Auto) (0.0-0.1) K/uL Nucleated RBC % /100WBC Nucleated RBCs # K/uL INR APTT (18.6-31.3) SEC Sodium (136-148) mmol/L Potassium (3.5-5.1) mmol/L Chloride (98-107) mmol/L Carbon Dioxide (21.0-32.0) mmol/L BUN (7.0-18.0) mg/dL Creatinine (0.8-1.3) mg/dL Est Cr Clr Drug Dosing mL/min Estimated GFR (MDRD) ml/min Glucose (74-106) mg/dL Calcium (8.5-10.1) mg/dL Total Bilirubin (0.2-1.0) mg/dL AST (15-37) IU/L ALT (14-63) IU/L Alkaline Phosphatase (46-116) U/L Creatine Kinase (26-308) U/L Troponin I < 0.050 (0.000-0.056) ng/mL B-Natriuretic Peptide (<100) PG/ML Total Protein (6.4-8.2) g/dL Albumin (3.4-5.0) g/dL Globulin (2.6-4.0) g/dL Albumin/Globulin Ratio (0.9-1.6) SARS-CoV-2 RNA (KATHARINA) (NEGATIVE) Meds: Medications Generic Name Dose Route Start Last Admin Trade Name Freq PRN Reason Stop Dose Admin Nitroglycerin 0.4 mg 11/06/20 00:35 11/06/20 01:40 Nitroglycerin 0.4 Mg Tab.Sl SL 0.4 mg Q5M PRN Administration Chest Pain Sodium Chloride 10 ml 11/05/20 23:49 Sodium Chloride 0.9% 10 Ml Syringe FLUSH ASDIRECTED PRN Keep Vein Open Sodium Chloride 2.5 ml 11/05/20 23:49 Sodium Chloride 0.9% 2.5 Ml Syringe FLUSH ASDIRECTED PRN Keep Vein Open Sodium Chloride 10 ml 11/05/20 23:49 Sodium Chloride 0.9% 10 Ml Sdv IV ASDIRECTED PRN IV Use Discontinued Medications Generic Name Dose Route Start Last Admin Trade Name Hectorq PRN Reason Stop Dose Admin Aspirin 324 mg 11/06/20 00:35 11/06/20 01:40 Aspirin 81 Mg Tab.Chew PO 11/06/20 00:36 324 mg ONETIME ONE Administration Lactated Ringer's 1,000 mls @ 999 mls/hr 11/06/20 00:37 11/06/20 01:40 Ringers, Lactated IV 11/06/20 01:37 999 mls/hr .BOLUS ONE Administration Iopamidol 80 ml 11/06/20 01:02 11/06/20 01:14 Iopamidol 755 Mg/Ml 100 Ml Bottle IVPUSH 11/06/20 01:03 80 ml ONETIME ONE Administration Morphine Sulfate 4 mg 11/06/20 00:34 11/06/20 01:41 Morphine 4 Mg/Ml Syringe IVPUSH 11/06/20 00:35 Not Given ONETIME ONE - Re-Assessments/Exams Free Text/Narrative Re-Assessment/Exam: 11/06/20 02:05 Patient received nitroglycerin, his chest pain is much improved. 11/06/20 05:[address] Desir, who agrees to admit patient. The hospitalist's documentation supersedes all other documentation on this patient with regard to any conflicts or discrepancies from this point forward. Any emergency conditions have been treated to the ability of the ED prior to admission. Departure - Departure Time of Disposition: 05:24 Disposition: Refer to Observation Condition: Good Clinical Impression: LBBB (left bundle branch block), CKD (chronic kidney disease), Hypertension, Renal artery stenosis, Pulmonary nodule Chest pain Qualifiers: Chest pain type: unspecified Qualified Code(s): R07.9 - Chest pain, unspecified - Discharge Information *PRESCRIPTION DRUG MONITORING PROGRAM REVIEWED*: Not Applicable *COPY OF PRESCRIPTION DRUG MONITORING REPORT IN PATIENT MARY: Not Applicable Instructions: Left Bundle Branch Block, Nonspecific Chest Pain, Adult, Chronic Kidney Disease, Adult, [id number], Pulmonary Nodule, [id number] Referrals: PCP,None [Primary Care Provider] - Forms: ED Department Discharge Sepsis Event Note (ED) - Focused Exam Vital Signs: Vital Signs Temp Pulse Resp BP BP Pulse Ox 11/06/20 02:45 66 18 133/49 L 97 11/06/20 01:40 76 18 131/59 L 131/56 L 97 11/05/20 23:50 97.0 F 84 18 178/67 H 100 - My Orders Last 24 Hours: My Active Orders 11/05/20 23:49 EKG Documentation Completion [RC] STAT Sodium Chloride 0.9% [Normal Saline] 10 ml IV ASDIRECTED PRN Sodium Chloride 0.9% [Saline Flush] 10 ml FLUSH ASDIRECTED PRN Sodium Chloride 0.9% [Saline Flush] 2.5 ml FLUSH ASDIRECTED PRN Peripheral IV Insertion Adult [OM.PC] Stat 11/05/20 23:50 Cardiac Monitoring [RC] . DIRECTED Pulse Oximetry [RC] CONTINUOUS 11/06/20 00:35 Nitroglycerin [Nitrostat] 0.4 mg SL Q5M PRN 11/06/20 05:23 Patient Status [ADT] Routine - Assessment/Plan Last 24 Hours: My Active Orders 11/05/20 23:49 EKG Documentation Completion [RC] STAT Sodium Chloride 0.9% [Normal Saline] 10 ml IV ASDIRECTED PRN Sodium Chloride 0.9% [Saline Flush] 10 ml FLUSH ASDIRECTED PRN Sodium Chloride 0.9% [Saline Flush] 2.5 ml FLUSH ASDIRECTED PRN Peripheral IV Insertion Adult [OM.PC] Stat 11/05/20 23:50 Cardiac Monitoring [RC] . DIRECTED Pulse Oximetry [RC] CONTINUOUS 11/06/20 00:35 Nitroglycerin [Nitrostat] 0.4 mg SL Q5M PRN 11/06/20 05:23 Patient Status [ADT] Routine
--- NOTE | 2020-11-06 00:11 | CR ---
For Patients: As a result of the Century Cures Act, medical imaging exams and procedure reports are released immediately into your electronic medical record. You may view this report before your referring provider. If you have questions, please contact your health care provider. INDICATION: Chest pain. COMPARISON: 10/06/2020. TECHNIQUE: Single portable AP view of the chest. FINDINGS: The lungs are hyperinflated. No focal consolidation, pneumothorax or effusion. Heart size is normal. Pulmonary vasculature is within normal limits. The osseous structures are unremarkable for age. IMPRESSION: Stable radiographic appearance of the chest. No acute findings. Dictated by Cj Rangel MD @ 11/06/2020 12:10:15 AM Dictated by: Cj Rangel MD @ 11/06/2020 00:10:20 (Electronically Signed)
[2020-11-06 00:30] LABS: BLOOD UREA NITROGEN,BUN 37 mg/dL (7.0-18.0); CARBON DIOXIDE,CO2 24.5 mmol/L (21.0-32.0); CHLORIDE,CL 103 mmol/L (98-107); GLUCOSE RANDOM 88 mg/dL (74-106); POTASSIUM,K 4.7 mmol/L (3.5-5.1); SODIUM,NA 137 mmol/L (136-148)
[2020-11-06] MEDS ORDERED: Morphine 4 MG/ML Syringe IVPUSH ONE (00:34)
[2020-11-06] MEDS ORDERED: Nitroglycerin 0.4 MG Tab.SL SL PRN (00:35)
[2020-11-06] MEDS ORDERED: Aspirin 81 MG Tab.Chew PO ONE (00:35)
[2020-11-06] MEDS ORDERED: Lactated Ringers 1,000 ML IV ONE (00:37)
[2020-11-06] MEDS ORDERED: Iopamidol 755 Mg/ML 100 ML Bottle IVPUSH ONE (01:02)
--- NOTE | 2020-11-06 02:18 | CT ---
INDICATION: Chest pain radiating to back TECHNIQUE: Axial images were obtained from the thoracic inlet to the diaphragm. Reformats: Coronal and sagittal IV Contrast: Initial noncontrast followed by 80 cc Isovue 370 COMPARISON: Chest CT 03/02/2020 FINDINGS: Mediastinum: Coronary atherosclerosis. Moderate atherosclerotic calcification thoracic aorta without evidence of aortic dissection. Great vessels patent. No pericardial effusion. No enlarged mediastinal lymph nodes. Lungs and Pleural Space: No pleural effusion or pneumothorax. Panlobular emphysema with apical pleural thickening and somewhat spiculated area in the right upper lobe measuring at least 6 millimeters. Subpleural nodule right lower lobe measuring 4 millimeters. Right middle lobe pulmonary nodule measuring 5 millimeters. Subpleural pulmonary nodule left lower lobe measuring 4 millimeters. Chest wall: No masses. Bones: Old compression fractures of T4, T8, T12 and L3. IMPRESSION: 1. No evidence of thoracic aortic aneurysm or dissection. Moderate atherosclerotic calcification. 2. Panlobular emphysema with spiculated scarring in the right upper lobe redemonstrated, similar to the prior exam. Multiple small pulmonary nodules redemonstrated. Where identified on the prior examination these appear similar, however the presence of the right pleural effusion makes some difficult to compare. Follow-up chest CT suggested in 12 months to reassess. Please note that all CT scans at this facility use dose modulation, iterative reconstruction, and/or weight-based dosing when appropriate to reduce radiation dose to as low as reasonably achievable. Dictated by Ankit Lopez MD @ 11/06/2020 2:16:[address] Ankit Lopez @ Nov 06 2020 2:16AM
--- NOTE | 2020-11-06 03:17 | CT ---
EXAM : Abdomen/pelvis CTA. INDICATION : Chest pain radiating to back. COMPARISON: Chest CTA acquired concurrently. Abdomen/pelvis CT from 04/03/2020, chest CT 03/02/2020 TECHNIQUE: Contiguous axial CT images of abdomen and pelvis acquired in arterial phase after uneventful administration of IV contrast. Coronal and sagittal reformations. FINDINGS: For details of the chest, see concurrently acquired chest CT report. No aortic dissection. There is ectasia of the abdominal aorta measuring up to 2.3 cm. The celiac trunk and right renal artery are patent. There is moderate stenosis of the origin of the SMA. The left renal artery has an ostial moderate stenosis. Arterial phase enhancement limits evaluation of solid abdominal organs. The arterial phase appearance of the liver, gallbladder, spleen, adrenal glands, and pancreas are unremarkable. The right kidney enhances normally and there is no hydronephrosis. The left kidney is atrophied and is relatively hypoenhancing as compared to the right. There is no evidence of a bowel obstruction. There is no bowel wall thickening fat containing inguinal hernias. Urinary bladder is distended but otherwise unremarkable. Significant prostatic hypertrophy. No adenopathy. No pneumoperitoneum or free fluid. There is a compression deformity of T8 vertebral body is unchanged from prior chest CT on February 28, 2020. The T12 and L3 compression deformities are unchanged from CT in March 2020. There are no acute or aggressive osseous abnormalities identified. IMPRESSION: 1. 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 No aortic dissection or acute aortic pathology. 2. Prostatic hypertrophy and distended urinary bladder. 3. Diverticulosis. 4. High-grade stenosis at origin of left renal artery with atrophy and hypoenhancement of the left kidney. 5. 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 Please note that all CT scans at this facility use dose modulation, iterative reconstruction, and/or weight-based dosing when appropriate to reduce radiation dose to as low as reasonably achievable. Dictated by Ney Espana MD @ 11/06/2020 2:46:[address] Ney Espana @ Nov 06 2020 2:46PM
[2020-11-06] MEDS ORDERED: Albuterol/Ipratropium 3.0-0.5 MG/3 ML Neb Soln NEB PRN (06:41)
[2020-11-06] MEDS ORDERED: Ondansetron 4 MG/2 ML SDV IVPUSH PRN (06:41)
[2020-11-06] MEDS ORDERED: Acetaminophen 325 MG Tab PO PRN (06:42)
[2020-11-06] MEDS ORDERED: Morphine 2 MG/ML SYRINGE IVPUSH PRN (06:42)
[2020-11-06] MEDS ORDERED: Lactated Ringers 1,000 ML IV SCH (06:45)
--- NOTE | 2020-11-06 08:23 | PCM.HP.2 ---
H&P History of Present Illness - General Date of Service: 11/06/20 Admit Problem/Dx: Admission Diagnosis/Problem Admission Diagnosis/Problem Chest pain Source of Information: Patient History Limitations: Reports: No Limitations - History of Present Illness Initial Comments - Free Text/Narative: 74-year-old male with past medical history of carotid stenosis with right caroti d stent, sternal fracture, ACS, NSTEMI recent stenting to RCA 03/17/2020, left bundle branch block presents with neck pain and chest pain. He reports that he is feeling intermittent pressure sensation to his neck diffusely since today rating this 8 out of 10. He denies any trouble swallowing or speaking, no sore throat, runny nose cough fever chills. He feels as though he has swollen lymph nodes in his neck. He reports last evening he started developing anterior chest pressure that was constant and diffuse across his chest. He reports the pain is associated with breathing along with nausea, with radiation to the upper back. He denies any palpitations, abdominal pain, headache or vomiting. He was recently seen and evaluated cardiology. He reports that the fine hairer requested him to have a Zio patch but at that time he did not feel like he wanted one. Patient feels he is feeling much improved today reports that the pain comes and goes and that it is more with his breathing and cough. He denies any alcohol use and no recreational drug use. He reports he continues to smoke and has no desire to quit as he feels that he has lived long enough and does not want to quit at this time. In the ER EKG normal sinus rhythm no acute ST-T wave changes heart rate 77. Chest x-ray in the ER revealed no acute cardiopulmonary findings. CT angio completed which revealed no evidence of thoracic aortic aneurysm or dissection. Moderate atherosclerotic calcifications noted. Panlobular emphysema with spiculated scarring in the right upper lobe similar to prior exam. Multiple small pulmonary nodules again noted. Right-sided pleural effusion also noted again. No leukocytosis noted in the ER hemoglobin 11.3 platelet count 228,000. Sodium 137 potassium 4.7. BUN 37 creatinine 1.8 which is near baseline. Troponin negative Covid swab negative. Vital signs while in the ER initially showed elevated blood pressure but after some pain medication and aspirin blood pressure returned to normal 130s over 50s. PCP KOLBY Tyler [employer] Dr. Deeprasertkul chest Pain Score (Numeric/FACES): 8 - Related Data Allergies/Adverse Reactions: Allergies Allergy/AdvReac Type Severity Reaction Status Date / Time No Known Allergies Allergy Verified 11/06/20 06:37 Home Medications: Home Meds Aspirin [Low Dose Aspirin EC] 81 mg PO DAILY 09/05/18 [History] Clopidogrel [Plavix] 75 mg PO BEDTIME 09/05/18 [History] Lisinopril 40 mg PO DAILY 09/05/18 [History] Omeprazole 20 mg PO ACBREAKFAST 09/05/18 [History] atorvaSTATin Calcium [Atorvastatin Calcium] 80 mg PO BEDTIME 09/05/18 [History] Nitroglycerin [Nitrostat] 0.4 mg SL .EVERY 5 MINUTES PRN MDD 3 tablets 03/03/20 [History] Furosemide 40 mg PO DAILY 04/03/20 [History] Kemp-3 Fatty Acids/Fish Oil [Fish Oil 1,000 mg Capsule] 1,000 mg PO TID 04/03/20 [History] Potassium Chloride [Klor-Con M20] 20 meq PO DAILY 04/03/20 [History] Diltiazem [Cardizem CD] 120 mg PO DAILY #30 cap.cd 04/06/20 [Rx] Budesonide/Formoterol Fumarate [Budesonide-Formoterol 80-4.5] 2 inh IH BID 11/06/20 [History] Ezetimibe 10 mg PO BEDTIME 11/06/20 [History] Past Medical History HEENT History: Reports: Impaired Vision Cardiovascular History: Reports: Afib, CAD, High Cholesterol, Hypertension, [place], Stents (Stenting to RCA 03/17/2020 along with bilateral iliac artery stenting in 2006, carotid artery stenting in 2008), Other (See Below) Other Cardiovascular History: nuclear stress test Respiratory History: Reports: COPD, Other (See Below) Other Respiratory History: polyp in lung Gastrointestinal History: Reports: None Genitourinary History: Reports: None Musculoskeletal History: Reports: Back Pain, Chronic, Other (See Below) Other Musculoskeletal History: lumbar fxs Neurological History: Reports: Cerebral Aneurysms Other Neuro History: 02/24/2020 [facility] stent coil embolization Psychiatric History: Reports: None Endocrine/Metabolic History: Reports: None Hematologic History: Reports: None Immunologic History: Reports: None Oncologic (Cancer) History: Reports: None Dermatologic History: Reports: None - Infectious Disease History Infectious Disease History: Reports: Chicken Pox, Shingles - Past Surgical History Head Surgeries/Procedures: Reports: None HEENT Surgical History: Reports: None Cardiovascular Surgical History: Reports: Carotid Stents, Coronary Artery Stent, Other (See Below) Other Cardiovascular Surgeries/Procedures: 5 stents Respiratory Surgical History: Reports: None GI Surgical History: Reports: Hernia, Inguinal Male Surgical History: Reports: None Endocrine Surgical History: Reports: None Neurological Surgical History: Reports: Other (See Below) Other Neurological Surgeries/Procedures: 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 shunt placement Other Musculoskeletal Surgeries/Procedures:: Back Surgery Oncologic Surgical History: Reports: None Dermatological Surgical History: Reports: None Social & Family History - Family History Family Medical History: No Pertinent Family History HEENT: Reports: None - Tobacco Use Tobacco Use Status *Q: Current Every Day Tobacco User Years of Tobacco use: 60 Packs/Tins Daily: 0.5 - Caffeine Use Caffeine Use: Reports: Coffee - Recreational Drug Use Recreational Drug Use: No - Living Situation & Occupation Living situation: Reports: with Family (Lives with nephew) Occupation: Retired H&P Review of Systems - Review of Systems: Review Of Systems: See Below General: Reports: No Symptoms. Denies: Fever, Chills, Malaise, Weakness HEENT: Reports: No Symptoms. Denies: Headaches, Sinus Congestion, Vertigo Pulmonary: Reports: Shortness of Breath (At baseline), Cough (Intermittent). Denies: Sputum Cardiovascular: Reports: Chest Pain (No longer present. Anterior across entire chest worsened with cough or deep breathing). Denies: Lightheadedness, Syncope Gastrointestinal: Reports: No Symptoms. Denies: Abdominal Pain, Black Stool, Bloody Stool, Nausea, Vomiting Genitourinary: Reports: No Symptoms. Denies: Dysuria, Frequency Musculoskeletal: Reports: No Symptoms Skin: Reports: No Symptoms. Denies: Wound Psychiatric: Reports: No Symptoms Neurological: Reports: No Symptoms Hematologic/Lymphatic: Reports: No Symptoms Immunologic: Reports: No Symptoms Exam - Exam Exam: See Below - Vital Signs Vital Signs: Last Vital Signs Temp 96.7 F L 11/06/20 07:54 Pulse 69 11/06/20 07:54 Resp 20 11/06/20 07:54 BP 123/50 L 11/06/20 07:54 Pulse Ox 97 11/06/20 07:54 Weight: 51.664 kg - Exam General: Alert, Oriented, Cooperative HEENT: Conjunctiva Clear, Mucosa Moist & [place], Posterior Pharynx Clear Lungs: Clear to Auscultation, Normal Respiratory Effort Cardiovascular: Regular Rate, Regular Rhythm. No: Systolic Murmur GI/Abdominal Exam: Normal Bowel Sounds, Soft, Non-Tender Back Exam: Normal Inspection, Full Range of Motion Extremities: Normal Inspection, Normal Range of Motion, Non-Tender, No Pedal Edema Skin: Warm, Dry, Intact Neuro Extensive - Mental Status: Alert, Oriented x3 Neuro Extensive - Motor, Sensory, Reflexes: CN II-XII Intact Psychiatric: Alert, Normal Affect, Normal Mood - Patient Data Lab Results Last 24 hrs: Laboratory Results - last 24 hr 11/05/20 11/05/20 11/05/20 Range/Units 23:48 23:48 23:48 WBC (4.0-11.0) K/uL RBC (4.50-5.90) M/uL Hgb (13.0-17.0) g/dL Hct (38.0-50.0) % MCV (80.0-98.0) fL MCH (27.0-32.0) pg MCHC (31.0-37.0) g/dL RDW Std Deviation (28.0-62.0) fl RDW Coeff of Geoffrey (11.0-15.0) % Plt Count (150-400) K/uL MPV (7.40-12.00) fL Neut % (Auto) (48.0-80.0) % Lymph % (Auto) (16.0-40.0) % Wolfe % (Auto) (0.0-15.0) % Eos % (Auto) (0.0-7.0) % Baso % (Auto) (0.0-1.5) % Neut # (Auto) (1.4-5.7) K/uL Lymph # (Auto) (0.6-2.4) K/uL Wolfe # (Auto) (0.0-0.8) K/uL Eos # (Auto) (0.0-0.7) K/uL Baso # (Auto) (0.0-0.1) K/uL Nucleated RBC % /100WBC Nucleated RBCs # K/uL INR 0.98 APTT 23.0 (18.6-31.3) SEC Sodium 137 (136-148) mmol/L Potassium 4.7 (3.5-5.1) mmol/L Chloride 103 (98-107) mmol/L Carbon Dioxide 24.5 (21.0-32.0) mmol/L BUN 37 H (7.0-18.0) mg/dL Creatinine 1.8 H (0.8-1.3) mg/dL Est Cr Clr Drug Dosing 25.09 mL/min Estimated GFR (MDRD) 36.9 ml/min Glucose 88 (74-106) mg/dL Calcium 8.5 (8.5-10.1) mg/dL Total Bilirubin 0.4 (0.2-1.0) mg/dL AST 27 (15-37) IU/L ALT 24 (14-63) IU/L Alkaline Phosphatase 94 (46-116) U/L Creatine Kinase (26-308) U/L Troponin I < 0.050 (0.000-0.056) ng/mL B-Natriuretic Peptide 92 (<100) PG/ML Total Protein 7.2 (6.4-8.2) g/dL Albumin 3.0 L (3.4-5.0) g/dL Globulin 4.2 H (2.6-4.0) g/dL Albumin/Globulin Ratio 0.7 L (0.9-1.6) SARS-CoV-2 RNA (KATHARINA) (NEGATIVE) 11/05/20 11/05/20 11/06/20 Range/Units 23:48 23:49 00:00 WBC 8.93 (4.0-11.0) K/uL RBC 3.77 L (4.50-5.90) M/uL Hgb 11.3 L (13.0-17.0) g/dL Hct 33.5 L (38.0-50.0) % MCV 88.9 (80.0-98.0) fL MCH 30.0 (27.0-32.0) pg MCHC 33.7 (31.0-37.0) g/dL RDW Std Deviation 56.4 (28.0-62.0) fl RDW Coeff of Geoffrey 17 H (11.0-15.0) % Plt Count 228 (150-400) K/uL MPV 10.50 (7.40-12.00) fL Neut % (Auto) 58.8 (48.0-80.0) % Lymph % (Auto) 21.8 (16.0-40.0) % Wolfe % (Auto) 15.5 H (0.0-15.0) % Eos % (Auto) 3.6 (0.0-7.0) % Baso % (Auto) 0.3 (0.0-1.5) % Neut # (Auto) 5.3 (1.4-5.7) K/uL Lymph # (Auto) 2.0 (0.6-2.4) K/uL Wolfe # (Auto) 1.4 H (0.0-0.8) K/uL Eos # (Auto) 0.3 (0.0-0.7) K/uL Baso # (Auto) 0.0 (0.0-0.1) K/uL Nucleated RBC % 0.0 /100WBC Nucleated RBCs # 0 K/uL INR APTT (18.6-31.3) SEC Sodium (136-148) mmol/L Potassium (3.5-5.1) mmol/L Chloride (98-107) mmol/L Carbon Dioxide (21.0-32.0) mmol/L BUN (7.0-18.0) mg/dL Creatinine (0.8-1.3) mg/dL Est Cr Clr Drug Dosing mL/min Estimated GFR (MDRD) ml/min Glucose (74-106) mg/dL Calcium (8.5-10.1) mg/dL Total Bilirubin (0.2-1.0) mg/dL AST (15-37) IU/L ALT (14-63) IU/L Alkaline Phosphatase (46-116) U/L Creatine Kinase 124 (26-308) U/L Troponin I (0.000-0.056) ng/mL B-Natriuretic Peptide (<100) PG/ML Total Protein (6.4-8.2) g/dL Albumin (3.4-5.0) g/dL Globulin (2.6-4.0) g/dL Albumin/Globulin Ratio (0.9-1.6) SARS-CoV-2 RNA (KATHARINA) NEGATIVE (NEGATIVE) 11/06/20 11/06/20 Range/Units 04:00 07:06 WBC (4.0-11.0) K/uL RBC (4.50-5.90) M/uL Hgb (13.0-17.0) g/dL Hct (38.0-50.0) % MCV (80.0-98.0) fL MCH (27.0-32.0) pg MCHC (31.0-37.0) g/dL RDW Std Deviation (28.0-62.0) fl RDW Coeff of Geoffrey (11.0-15.0) % Plt Count (150-400) K/uL MPV (7.40-12.00) fL Neut % (Auto) (48.0-80.0) % Lymph % (Auto) (16.0-40.0) % Wolfe % (Auto) (0.0-15.0) % Eos % (Auto) (0.0-7.0) % Baso % (Auto) (0.0-1.5) % Neut # (Auto) (1.4-5.7) K/uL Lymph # (Auto) (0.6-2.4) K/uL Wolfe # (Auto) (0.0-0.8) K/uL Eos # (Auto) (0.0-0.7) K/uL Baso # (Auto) (0.0-0.1) K/uL Nucleated RBC % /100WBC Nucleated RBCs # K/uL INR APTT (18.6-31.3) SEC Sodium (136-148) mmol/L Potassium (3.5-5.1) mmol/L Chloride (98-107) mmol/L Carbon Dioxide (21.0-32.0) mmol/L BUN (7.0-18.0) mg/dL Creatinine (0.8-1.3) mg/dL Est Cr Clr Drug Dosing mL/min Estimated GFR (MDRD) ml/min Glucose (74-106) mg/dL Calcium (8.5-10.1) mg/dL Total Bilirubin (0.2-1.0) mg/dL AST (15-37) IU/L ALT (14-63) IU/L Alkaline Phosphatase (46-116) U/L Creatine Kinase (26-308) U/L Troponin I < 0.050 < 0.050 (0.000-0.056) ng/mL B-Natriuretic Peptide (<100) PG/ML Total Protein (6.4-8.2) g/dL Albumin (3.4-5.0) g/dL Globulin (2.6-4.0) g/dL Albumin/Globulin Ratio (0.9-1.6) SARS-CoV-2 RNA (KATHARINA) (NEGATIVE) Result Diagrams: 11/05/20 23:49 11/05/20 23:48 Sepsis Event Note - Evaluation Sepsis Screening Result: No Definite Risk - Focused Exam Vital Signs: Vital Signs Temp Pulse Resp BP BP Pulse Ox 11/06/20 07:54 96.7 F L 69 20 123/50 L 97 11/06/20 06:30 97.8 F 80 20 158/57 H 97 11/06/20 06:09 79 18 135/67 98 11/06/20 05:10 69 18 128/62 98 11/06/20 04:10 66 18 136/52 L 97 11/06/20 03:39 64 18 127/52 L 97 11/06/20 02:45 66 18 133/49 L 97 11/06/20 01:40 76 18 131/59 L 131/56 L 97 11/05/20 23:50 97.0 F 84 18 178/67 H 100 - Problem List (1) Chest pain SNOMED Code(s): 74304170 ICD Code: R07.9 - CHEST PAIN, UNSPECIFIED Status: Acute Current Visit: Yes Qualifiers: Chest pain type: unspecified Qualified Code(s): R07.9 - Chest pain, unspecified (2) Left bundle branch block SNOMED Code(s): 65297182 ICD Code: I44.7 - LEFT BUNDLE-BRANCH BLOCK, UNSPECIFIED Status: Acute Current Visit: Yes (3) CKD (chronic kidney disease) SNOMED Code(s): 263663248 ICD Code: N18.9 - CHRONIC KIDNEY DISEASE, UNSPECIFIED Status: Chronic Current Visit: Yes (4) Hypertension SNOMED Code(s): 28389285 ICD Code: I10 - ESSENTIAL (PRIMARY) HYPERTENSION Status: Chronic Current Visit: Yes (5) LBBB (left bundle branch block) SNOMED Code(s): 33593553 ICD Code: I44.7 - LEFT BUNDLE-BRANCH BLOCK, UNSPECIFIED Status: Chronic Current Visit: Yes (6) Peripheral vascular disease SNOMED Code(s): 636375700 ICD Code: I73.9 - PERIPHERAL VASCULAR DISEASE, UNSPECIFIED Status: Chronic Current Visit: Yes (7) S/P right coronary artery (RCA) stent placement SNOMED Code(s): 77891703752354, 27078431602994 ICD Code: Z95.5 - PRESENCE OF CORONARY ANGIOPLASTY IMPLANT AND GRAFT Status: Chronic Current Visit: Yes (8) Smoker SNOMED Code(s): 91966073 ICD Code: F17.200 - NICOTINE DEPENDENCE, UNSPECIFIED, UNCOMPLICATED Status: Chronic Current Visit: Yes (9) Atrial fibrillation SNOMED Code(s): 80742551 ICD Code: I48.91 - UNSPECIFIED ATRIAL FIBRILLATION Status: Chronic Current Visit: No Qualifiers: Atrial fibrillation type: persistent (not longstanding) Qualified Code(s): I48.19 - Other persistent atrial fibrillation; I48.1 - Persistent atrial fibrillation (10) CAD (coronary artery disease) SNOMED Code(s): 46800613 ICD Code: I25.10 - ATHSCL HEART DISEASE OF [place] CORONARY ARTERY W/O ANG P MEDICAL ILLUSTRATOR Status: Chronic Current Visit: No Problem List Initiated/Reviewed/Updated: Yes Orders Last 24hrs: Active Orders 24 hr Category Date Time Status Patient Status [ADT] Routine ADT 11/06/20 05:23 Active Antiembolic Devices [RC] PER UNIT ROUTINE Care 11/06/20 06:43 Active Cardiac Monitoring [RC] . DIRECTED Care 11/05/20 23:50 Active EKG Documentation Completion [RC] STAT Care 11/05/20 23:49 Active Oxygen Therapy [RC] ASDIRECTED Care 11/06/20 06:44 Active Pulse Oximetry [RC] ASDIRECTED Care 11/06/20 06:43 Active Pulse Oximetry [RC] CONTINUOUS Care 11/05/20 23:50 Active RT Aerosol Therapy [RC] ASDIRECTED Care 11/06/20 06:41 Active Telemetry Monitoring [Cardiac Monitoring] [RC] Q8H Care 11/06/20 06:14 Active Vital Signs [RC] Q4H Care 11/06/20 06:44 Active Acetaminophen [TylenoL] Med 11/06/20 06:42 Active 650 mg PO Q4H PRN Albuterol/Ipratropium [DuoNeb 3.0-0.5 MG/3 ML] Med 11/06/20 06:41 Active 3 ml NEB Q4HRRT PRN Lactated Ringers [Ringers, Lactated] 1,000 ml Med 11/06/20 06:45 Active IV ASDIRECTED Morphine Med 11/06/20 06:42 Active 1 mg IVPUSH Q4H PRN Nitroglycerin [Nitrostat] Med 11/06/20 00:35 Active 0.4 mg SL Q5M PRN Ondansetron [Zofran] Med 11/06/20 06:41 Active 4 mg IVPUSH Q4H PRN Sodium Chloride 0.9% [Normal Saline] Med 11/05/20 23:49 Active 10 ml IV ASDIRECTED PRN Sodium Chloride 0.9% [Saline Flush] Med 11/05/20 23:49 Active 10 ml FLUSH ASDIRECTED PRN Sodium Chloride 0.9% [Saline Flush] Med 11/05/20 23:49 Active 2.5 ml FLUSH ASDIRECTED PRN Peripheral IV Insertion Adult [OM.PC] Stat Oth 11/05/20 23:49 Ordered SCD [Sequential Compression Device] [OM.PC] Routine Oth 11/06/20 06:43 Ordered Medication Orders Acetaminophen (Acetaminophen 325 Mg Tab) 650 mg PO Q4H PRN PRN Reason: Pain (mild 1-3) Albuterol/Ipratropium (Albuterol/Ipratropium 3.0-0.5 Mg/3 Ml Neb Soln) 3 ml NEB Q4HRRT PRN PRN Reason: Shortness of Breath Lactated Ringer's (Ringers, Lactated) 1,000 mls @ 125 mls/hr IV ASDIRECTED CASSIE Last Admin: 11/06/20 07:23 Dose: 125 mls/hr Documented by: RAIN Morphine Sulfate (Morphine 2 Mg/Ml Syringe) 1 mg IVPUSH Q4H PRN PRN Reason: Pain (severe 7-10) Nitroglycerin (Nitroglycerin 0.4 Mg Tab.Sl) 0.4 mg SL Q5M PRN PRN Reason: Chest Pain Last Admin: 07/12/21 01:40 Dose: 0.4 mg Documented by: [id number] Ondansetron HCl (Ondansetron 4 Mg/2 Ml Sdv) 4 mg IVPUSH Q4H PRN PRN Reason: Nausea/Vomiting Sodium Chloride (Sodium Chloride 0.9% 10 Ml Syringe) 10 ml FLUSH ASDIRECTED PRN PRN Reason: Keep Vein Open Sodium Chloride (Sodium Chloride 0.9% 2.5 Ml Syringe) 2.5 ml FLUSH ASDIRECTED PRN PRN Reason: Keep Vein Open Sodium Chloride (Sodium Chloride 0.9% 10 Ml Sdv) 10 ml IV ASDIRECTED PRN PRN Reason: IV Use Assessment/Plan Comment:: This 74-year-old male admitted with chest pain rule out ACS 1. Chest pain rule out ACS -Troponins x3 negative -No changes on EKG or telemetry -Patient remained chest pain-free -I did speak with Dr. Taylor regarding admission at his recent visit with patient. He does agree with obtaining Zio patch as well as Lexiscan as outpatient and he will follow up with patient. -Patient very eager for discharge home and is not wanting to stay another night for further monitoring. Discharge plan: Bill was admitted secondary to chest pain. ACS ruled out at this time. Patient high risk due to significant CAD history along with recent stenting. Dr. He, fine hairer is aware of his admission and discharge today. Patient is very eager for discharge home and unwilling to stay for further evaluation and monitoring. Patient will be discharged home with Zio patch for further monitoring of atrial fibrillation and upon request of Dr. Taylor Lexiscan has been ordered for outpatient. Dr. Taylor will follow up with both of these results. Patient is to continue all home medications at this time with no changes. He was counseled on appropriate use of nitroglycerin for chest pain. And then to seek medical evaluation after use. He verbalized understanding. He was also counseled on tobacco use greater than 10 minutes but continued to be unmotivated at this time to quit. Will be discharged home today follow-up with PCP [place] resident at the [facility] along with Dr. He. - Mortality Measure Prognosis:: Good
[2020-11-06 13:57] LABS: HEMOGLOBIN A1C 6.2 %
[2020-11-06 15:31] VITALS: BP 137/54; PULSE 74
== END 2020-11-06 16:15 | disposition home or self-care (01) ==
LOC: MW.ED 23:45 → MW.MS 11-06 05:23
PROVIDERS: ADMIT Student in an Organized Health Care Education/Training Program; ATTEND Student in an Organized Health Care Education/Training Program
DX: R07.9 Chest pain, unspecified (principal); M54.2 Cervicalgia; I25.10 Atherosclerotic heart disease of native coronary artery without angina pectoris; E78.00 Pure hypercholesterolemia, unspecified; I10 Essential (primary) hypertension; I25.2 Old myocardial infarction; J44.9 Chronic obstructive pulmonary disease, unspecified; F17.210 Nicotine dependence, cigarettes, uncomplicated; I44.7 Left bundle-branch block, unspecified; I12.9 Hypertensive chronic kidney disease with stage 1 through stage 4 chronic kidney disease, or unspecified chronic kidney disease; N18.9 Chronic kidney disease, unspecified; I73.9 Peripheral vascular disease, unspecified; I48.19 Other persistent atrial fibrillation; Z20.822 Contact with and (suspected) exposure to COVID-19; Z79.899 Other long term (current) drug therapy; Z79.82 Long term (current) use of aspirin; Z95.5 Presence of coronary angioplasty implant and graft
CPT/HCPCS: 36415; 71045; 71275; 74174; 80053; 80061; 82550; 83036; 83880; 84443; 84484; 85025; 85610; 85730; 87635; 93005; 99285; A9270; J7120; Q9967; G0378; U0002

== ENCOUNTER 2020-11-07 11:10 | Emergency (ER) | payer OTHER ==
[2020-11-07] MEDS ORDERED: Sodium Chloride 0.9% 2.5 ML Syringe FLUSH PRN (11:28)
[2020-11-07] MEDS ORDERED: Sodium Chloride 0.9% 10 ML Syringe FLUSH PRN (11:28)
[2020-11-07] MEDS ORDERED: Ondansetron 4 MG/2 ML SDV IVPUSH ONE ×2 (11:28→16:11)
[2020-11-07] MEDS ORDERED: Sodium Chloride 0.9% 1,000 ML IV SCH (11:30)
--- NOTE | 2020-11-07 11:31 | EDM.PDOC ---
ED HPI GENERAL MEDICAL PROBLEM - General Chief Complaint: Gastrointestinal Problem Stated Complaint: dizzy Time Seen by Provider: 11/07/20 11:14 - History of Present Illness INITIAL COMMENTS - FREE TEXT/NARRATIVE: History of present illness: [] The patient presents for diaphoresis and vomiting. He has diaphoresis and vomiting all morning. He was here yesterday discharged in the wee hours in the morning after he had been kept briefly to rule out MS. At that time he had presented with shortness of breath and chest pressure. The patient's shortness of breath and chest pressure gotten better. The patient is a habitual frequent smoker. The patient feels dizzy. He feels like things are spinning. Thanks been fast not he has trouble walking. Review of systems: As per history of present illness and below otherwise all systems reviewed and negative. Past medical history: As per history of present illness and as reviewed below otherwise noncontributory. Surgical history: As per history of present illness and as reviewed below otherwise noncontributory. Social history: No reported history of drug or alcohol abuse. Family history: As per history of present illness and as reviewed below otherwise noncontrib utory. Physical exam: Constitutional - well developed, well-nourished and in no acute distress HEENT -ear canals and TMs normal normocephalic, no evidence of trauma - external nose and mouth normal - no mass in neck and no JVD - mucosae moist EYES - full EOM, PERRL, no icterus - no evidence of inflammation, injection, or drainage Respiratory - no respiratory distress, equal bilateral expansion, lungs clear to auscultation and no abnormal lung sounds Cardiovascular - Regular Rhythm with S1 and S2 appreciated and no murmur, gallop or rub. GI - abdomen soft without distension or organomegaly - normal bowel sounds - no guard or rebound Musculoskeletal no gross deformity of long bones or joints - no tenderness, swelling or edema Neurologic - Alert and oriented times four - CN II-XII grossly intact - motor sensory and coordination symmetrically normal Psychiatric - appropriate mood and affect with normal thought content Hematologic - No petechiae or purpura - mucosa appropriate color and sclera not pale - normal nail bed color and refill Integument - no rash or evidence of trauma - normal turgor Diagnostics: [] Therapeutics: [] Impression: [] Plan: [] Definitive disposition and diagnosis as appropriate pending reevaluation and review of above. - Related Data Allergies Allergy/AdvReac Type Severity Reaction Status Date / Time No Known Allergies Allergy Verified 11/07/20 11:45 Home Meds: Home Meds Aspirin [Low Dose Aspirin EC] 81 mg PO DAILY 09/05/18 [History] Clopidogrel [Plavix] 75 mg PO BEDTIME 09/05/18 [History] Lisinopril 40 mg PO DAILY 09/05/18 [History] Omeprazole 20 mg PO ACBREAKFAST 09/05/18 [History] atorvaSTATin Calcium [Atorvastatin Calcium] 80 mg PO BEDTIME 09/05/18 [History] Nitroglycerin [Nitrostat] 0.4 mg SL .EVERY 5 MINUTES PRN MDD 3 tablets 03/03/20 [History] [place]-3 Fatty Acids/Fish Oil [Fish Oil 1,000 mg Capsule] 1,000 mg PO TID 04/03/20 [History] Potassium Chloride [Klor-Con M20] 20 meq PO DAILY 04/03/20 [History] Diltiazem [Cardizem CD] 120 mg PO DAILY #30 cap.cd 04/06/20 [Rx] Acetaminophen 650 mg PO Q6H PRN 11/06/20 [History] Budesonide/Formoterol Fumarate [Budesonide-Formoterol 160-4.5] 2 inh IH Q12H 11/06/20 [History] Calcium Carbonate [Antacid] 420 mg PO BID 11/06/20 [History] Ezetimibe 10 mg PO BEDTIME 11/06/20 [History] Ferrous Gluconate 324 mg PO DAILY 11/06/20 [History] Furosemide 20 mg PO DAILY #0 11/06/20 [Rx] Lidocaine 5% [Lidoderm 5%] 2 patch TD .Q12HRS, OFF 12 HRS 11/06/20 [History] Pnv No.95/Ferrous Fum/Folic AC [ Caplet] 1 tab PO DAILY 11/06/20 [History] Zinc 50 mg PO DAILY 11/06/20 [History] Meclizine [Antivert] 25 mg PO TID PRN #30 tab 11/07/20 [Rx] Past Medical History HEENT History: Reports: Impaired Vision Cardiovascular History: Reports: Afib, CAD, High Cholesterol, Hypertension, MS, Stents (Stenting to RCA 03/17/2020 along with bilateral iliac artery stenting in 2006, carotid artery stenting in 2008), Other (See Below) Other Cardiovascular History: nuclear stress test Respiratory History: Reports: COPD, Other (See Below) Other Respiratory History: polyp in lung Gastrointestinal History: Reports: None Genitourinary History: Reports: None Musculoskeletal History: Reports: Back Pain, Chronic, Other (See Below) Other Musculoskeletal History: lumbar fxs Neurological History: Reports: Cerebral Aneurysms Other Neuro History: 02/24/2020 [facility] stent coil embolization Psychiatric History: Reports: None Endocrine/Metabolic History: Reports: None Hematologic History: Reports: None Immunologic History: Reports: None Oncologic (Cancer) History: Reports: None Dermatologic History: Reports: None - Infectious Disease History Infectious Disease History: Reports: Chicken Pox, Shingles - Past Surgical History Cardiovascular Surgical History: Reports: Carotid Stents, Coronary Artery Stent, Other (See Below) Other Neurological Surgeries/Procedures: 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 shunt placement Social & Family History - Family History Family Medical History: No Pertinent Family History HEENT: Reports: None - Caffeine Use Caffeine Use: Reports: Coffee - Living Situation & Occupation Living situation: Reports: with Family (Lives with nephew) Occupation: Retired ED ROS GENERAL - Review of Systems Review Of Systems: Comprehensive ROS is negative, except as noted in HPI. ED EXAM, GENERAL - Physical Exam Exam: See Below Free Text/Narrative:: My physical exam is in the HPI #1 Interpretation EKG Interpretation Comments: EKG sinus rhythm with a heart rate of 60 and a QT duration of 488. QRS axis 49. Left bundle branch pattern on the QRS with appropriate repolarization changes consistent with same. Compared to 11/05/2020 no acute injury. Impression no acute injury Course - Vital Signs Text/Narrative:: 1533 hrs. patient still dizzy but able to sit up in a wheelchair. When he moves his head side to side it is worse. He feels a popping and cracking in his left ear. Last Recorded V/S: Last Vital Signs Temp 36.3 C 11/07/20 11:10 Pulse 66 11/07/20 17:15 Resp 16 11/07/20 17:15 BP 136/60 11/07/20 17:15 Pulse Ox 97 11/07/20 17:15 - Orders/Labs/Meds Orders: Active Orders 24 hr Category Date Time Status Sodium Chloride 0.9% [Normal Saline] 1,000 ml Med 11/07/20 11:30 Active IV ASDIRECTED Sodium Chloride 0.9% [Saline Flush] Med 11/07/20 11:28 Active 10 ml FLUSH ASDIRECTED PRN Sodium Chloride 0.9% [Saline Flush] Med 11/07/20 11:28 Active 2.5 ml FLUSH ASDIRECTED PRN Saline Lock Insert [OM.PC] Stat Oth 11/07/20 11:28 Ordered Medication Orders Sodium Chloride (Normal Saline) 1,000 mls @ 100 mls/hr IV ASDIRECTED CASSIE Last Infusion: 11/07/20 14:42 Dose: 999 mls/hr Documented by: Admin: 11/07/20 11:40 Dose: 100 mls/hr Documented by: TARAS Sodium Chloride (Sodium Chloride 0.9% 10 Ml Syringe) 10 ml FLUSH ASDIRECTED PRN PRN Reason: Keep Vein Open Last Admin: 11/07/20 11:39 Dose: 10 ml Documented by: TARAS Sodium Chloride (Sodium Chloride 0.9% 2.5 Ml Syringe) 2.5 ml FLUSH ASDIRECTED PRN PRN Reason: Keep Vein Open Last Admin: 11/07/20 11:39 Dose: 2.5 ml Documented by: TARAS Labs: Laboratory Tests 11/07/20 11/07/20 11/07/20 Range/Units 11:44 11:44 14:57 WBC 7.25 (4.0-11.0) K/uL RBC 3.49 L (4.50-5.90) M/uL Hgb 10.4 L (13.0-17.0) g/dL Hct 31.0 L (38.0-50.0) % MCV 88.8 (80.0-98.0) fL MCH 29.8 (27.0-32.0) pg MCHC 33.5 (31.0-37.0) g/dL RDW Std Deviation 56.8 (28.0-62.0) fl RDW Coeff of Geoffrey 17 H (11.0-15.0) % Plt Count 192 (150-400) K/uL MPV 10.20 (7.40-12.00) fL Neut % (Auto) 77.3 (48.0-80.0) % Lymph % (Auto) 12.6 L (16.0-40.0) % [place] % (Auto) 8.0 (0.0-15.0) % Eos % (Auto) 1.8 (0.0-7.0) % Baso % (Auto) 0.3 (0.0-1.5) % Neut # (Auto) 5.6 (1.4-5.7) K/uL Lymph # (Auto) 0.9 (0.6-2.4) K/uL [place] # (Auto) 0.6 (0.0-0.8) K/uL Eos # (Auto) 0.1 (0.0-0.7) K/uL Baso # (Auto) 0.0 (0.0-0.1) K/uL Nucleated RBC % 0.0 /100WBC Nucleated RBCs # 0 K/uL Sodium 143 (136-148) mmol/L Potassium 3.8 (3.5-5.1) mmol/L Chloride 107 (98-107) mmol/L Carbon Dioxide 25.4 (21.0-32.0) mmol/L BUN 25 H (7.0-18.0) mg/dL Creatinine 1.6 H (0.8-1.3) mg/dL Est Cr Clr Drug Dosing 27.72 mL/min Estimated GFR (MDRD) 42.2 ml/min Glucose 130 H (74-106) mg/dL Calcium 8.9 (8.5-10.1) mg/dL Total Bilirubin 0.4 (0.2-1.0) mg/dL AST 19 (15-37) IU/L ALT 20 (14-63) IU/L Alkaline Phosphatase 78 (46-116) U/L Total Protein 6.7 (6.4-8.2) g/dL Albumin 2.8 L (3.4-5.0) g/dL Globulin 3.9 (2.6-4.0) g/dL Albumin/Globulin Ratio 0.7 L (0.9-1.6) Lipase 88 (73-393) U/L Urine Color YELLOW Urine Appearance CLEAR Urine pH 5.5 (5.0-8.0) Ur Specific [place] 1.020 (1.001-1.035) Urine Protein NEGATIVE (NEGATIVE) mg/dL Urine Glucose (UA) NEGATIVE (NEGATIVE) mg/dL Urine Ketones NEGATIVE (NEGATIVE) mg/dL Urine Occult Blood NEGATIVE (NEGATIVE) Urine Nitrite NEGATIVE (NEGATIVE) Urine Bilirubin NEGATIVE (NEGATIVE) Urine Urobilinogen 0.2 (<2.0) EU/dL Ur Leukocyte Esterase NEGATIVE (NEGATIVE) Meds: Medications Generic Name Dose Route Start Last Admin Trade Name Archie PRN Reason Stop Dose Admin Sodium Chloride 1,000 mls @ 100 mls/hr 11/07/20 11:30 11/07/20 14:42 Normal Saline IV 999 mls/hr ASDIRECTED CASSIE Infusion Sodium Chloride 10 ml 11/07/20 11:28 11/07/20 11:39 Sodium Chloride 0.9% 10 Ml Syringe FLUSH 10 ml ASDIRECTED PRN Administration Keep Vein Open Sodium Chloride 2.5 ml 11/07/20 11:28 11/07/20 11:39 Sodium Chloride 0.9% 2.5 Ml Syringe FLUSH 2.5 ml ASDIRECTED PRN Administration Keep Vein Open Discontinued Medications Generic Name Dose Route Start Last Admin Trade Name Archie PRN Reason Stop Dose Admin Sodium Chloride 1,000 mls @ 1,000 mls/hr 11/07/20 14:41 11/07/20 14:42 Normal Saline IV 11/07/20 15:40 Not Given .Bolus ONE Iopamidol 100 ml 11/07/20 17:02 11/07/20 17:03 Iopamidol 755 Mg/Ml 500 Ml Multipack Bottle IVPUSH 11/07/20 17:03 100 ml ONETIME STA Administration Meclizine HCl 25 mg 11/07/20 14:41 11/07/20 15:25 Meclizine 25 Mg Tab PO 11/07/20 14:42 25 mg ONETIME ONE Administration Meclizine HCl 25 mg 11/07/20 16:11 11/07/20 17:13 Meclizine 25 Mg Tab PO 11/07/20 16:12 25 mg ONETIME ONE Administration Ondansetron HCl 4 mg 11/07/20 11:28 11/07/20 11:39 Ondansetron 4 Mg/2 Ml Sdv IVPUSH 11/07/20 11:29 4 mg ONETIME ONE Administration Ondansetron HCl 4 mg 11/07/20 16:11 07/13/21 17:13 Ondansetron 4 Mg/2 Ml Sdv IVPUSH 11/07/20 16:12 4 mg ONETIME ONE Administration Departure - Departure Time of Disposition: 18:17 Disposition: Home, Self-Care 01 Condition: Good Clinical Impression: Vertigo - Discharge Information Prescriptions: Meclizine [Antivert] 25 mg PO TID PRN #30 tab PRN Reason: Dizziness Instructions: Vertigo, [id number] Referrals: PCP,None [Primary Care Provider] - Forms: ED Department Discharge Additional Instructions: [facility] - Neurology Professional Building [address] [place] [address], [address] [place] [address] [facility] - Primary Care [address] [place] [id number] [address] The following information is given to patients seen in the emergency department who are being discharged to home. This information is to outline your options for follow-up care. We provide all patients seen in our emergency department with a follow-up referral. The need for follow-up, as well as the timing and circumstances, are variable depending upon the specifics of your emergency department visit. If you don't have a primary care physician on staff, we will provide you with a referral. We always advise you to contact your personal physician following an emergency department visit to inform them of the circumstance of the visit and for follow-up with them and/or the need for any referrals to a consulting specialist. The emergency department will also refer you to a specialist when appropriate. This referral assures that you have the opportunity for follow-up care with a specialist. All of these measure are taken in an effort to provide you with optimal care, which includes your follow-up. Under all circumstances we always encourage you to contact your private physician who remains a resource for coordinating your care. When calling for follow-up care, please make the office aware that this follow-up is from your recent emergency room visit. If for any reason you are refused follow-up, please contact the [facility] Emergency Department at and asked to speak to the emergency department charge nurse. Sepsis Event Note (ED) - Focused Exam Vital Signs: Vital Signs Temp Pulse Resp BP Pulse Ox 11/07/20 17:15 66 16 136/60 97 11/07/20 15:57 52 L 17 137/80 94 L 11/07/20 14:02 15 L 16 95/51 L 97 11/07/20 12:22 46 L 15 127/56 L 97 11/07/20 11:48 56 L 16 98/51 L 95 11/07/20 11:10 36.3 C 57 L 15 68/32 L 97 - My Orders Last 24 Hours: My Active Orders 11/07/20 11:28 Sodium Chloride 0.9% [Saline Flush] 10 ml FLUSH ASDIRECTED PRN Sodium Chloride 0.9% [Saline Flush] 2.5 ml FLUSH ASDIRECTED PRN Saline Lock Insert [OM.PC] Stat 11/07/20 11:30 Sodium Chloride 0.9% [Normal Saline] 1,000 ml IV ASDIRECTED - Assessment/Plan Last 24 Hours: My Active Orders 11/07/20 11:28 Sodium Chloride 0.9% [Saline Flush] 10 ml FLUSH ASDIRECTED PRN Sodium Chloride 0.9% [Saline Flush] 2.5 ml FLUSH ASDIRECTED PRN Saline Lock Insert [OM.PC] Stat 11/07/20 11:30 Sodium Chloride 0.9% [Normal Saline] 1,000 ml IV ASDIRECTED
[2020-11-07 14:12] LABS: CARBON DIOXIDE,CO2 25.4 mmol/L (21.0-32.0); POTASSIUM,K 3.8 mmol/L (3.5-5.1)
[2020-11-07] MEDS ORDERED: Sodium Chloride 0.9% 1,000 ML IV ONE (14:41)
[2020-11-07] MEDS ORDERED: Meclizine 25 MG Tab PO ONE ×2 (14:41→16:11)
--- NOTE | 2020-11-07 15:54 | CT ---
INDICATION: Dizziness TECHNIQUE: CT of the head without contrast. Coronal and sagittal reformats. Bone and soft tissue algorithms. COMPARISON: No prior studies available for comparison at this institution. FINDINGS: No acute intracranial hemorrhage or extra-axial collection. No evidence of acute cortical infarction. 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 This limits evaluation of adjacent structures. No mass effect or midline shift. Mild parenchymal volume loss vascular calcifications within the carotid siphons. Orbital contents are normal. No calvarial fractures. No lytic or sclerotic osseous lesions within the calvarium or skull base. Scalp and other imaged soft tissue structures are normal. Mastoid air cells are clear. The nasal septum is deviated to the right. IMPRESSION: 1. No evidence of acute intracanal body. 2. 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 This limits evaluation of adjacent structures. 3. Mild age-related parenchymal volume loss. Please note that all CT scans at this facility use dose modulation, iterative reconstruction, and/or weight-based dosing when appropriate to reduce radiation dose to as low as reasonably achievable. Dictated by Milo Dickens MD @ 11/07/2020 3:53:[address] Milo Dickens @ Nov 07 2020 3:53PM
[2020-11-07] MEDS ORDERED: Iopamidol 755 MG/ML 500 ML Multipack Bottle IVPUSH STA (17:02)
--- NOTE | 2020-11-07 18:04 | CT ---
DATE: 11/07/2020. CLINICAL HISTORY: Patient with dizziness. TECHNIQUE: Standard helical CT image acquisition through the head and neck after intravenous contrast bolus enhancement was performed. Multiplanar reconstructed images performed on a separate workstation. COMPARISON: CTA head and neck dated 01/28/2020. 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 No evidence of large aneurysm recurrence although assessment is limited due to the metallic artifact. No new cerebral aneurysm. No intracranial proximal large vessel occlusion or flow-limiting luminal stenosis. The origins of the right and left vertebral arteries are patent. The common carotid arteries are patent. There is moderate (approximately 60 percent) and mild (less than 50 percent) atherosclerotic luminal stenoses of the proximal right and left internal carotid arteries, respectively, by NASCET criteria. The more distal cervical segments of the internal carotid arteries are patent. The left vertebral artery is dominant. The cervical segments of the vertebral arteries are patent. Emphysematous changes with a spiculated lesion in the right upper lobe. The thyroid gland is unremarkable. There are degenerative changes in the cervical spine. IMPRESSION: 1. 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 Extensive metallic artifact limits assessment of adjacent anatomy although no large aneurysm recurrence is evident. 2. No new cerebral aneurysm. 3. No intracranial proximal large vessel occlusion or flow-limiting luminal stenosis. 4. Moderate (approximately 60 percent) and mild (less than 50 percent) atherosclerotic luminal stenoses of the proximal right and left internal carotid arteries, respectively, by NASCET criteria. Please note that all CT scans at this facility use dose modulation, iterative reconstruction, and/or weight-based dosing when appropriate to reduce radiation dose to as low as reasonably achievable. Dictated by Yusuf Herbert MD @ 11/07/2020 6:03:[address] Yusuf Herbert @ Nov 07 2020 6:03PM
[2020-11-07 20:32] VITALS: BP 123/49; PULSE 70
== END 2020-11-07 18:35 | disposition home or self-care (01) ==
LOC: MW.ED 11:10
DX: R42 Dizziness and giddiness (principal); I48.91 Unspecified atrial fibrillation; I25.10 Atherosclerotic heart disease of native coronary artery without angina pectoris; E78.00 Pure hypercholesterolemia, unspecified; I10 Essential (primary) hypertension; I25.2 Old myocardial infarction; J44.9 Chronic obstructive pulmonary disease, unspecified; Z95.5 Presence of coronary angioplasty implant and graft; Z79.82 Long term (current) use of aspirin; Z79.02 Long term (current) use of antithrombotics/antiplatelets; Z79.899 Other long term (current) drug therapy
CPT/HCPCS: 36415; 70450; 70496; 70498; 80053; 81003; 83690; 85025; 93005; 96374; 96376; 99285; A9270; J2405; J7030; Q9967

== ENCOUNTER 2021-07-01 14:37 | Inpatient (IN) | payer OTHER, MEDICARE ==
[2021-07-01] MEDS ORDERED: traMADol 50 MG Tab PO ONE (14:41)
[2021-07-01] MEDS ORDERED: Sodium Chloride 0.9% 10 ML Syringe FLUSH PRN (16:15)
[2021-07-01] MEDS ORDERED: Sodium Chloride 0.9% 2.5 ML Syringe FLUSH PRN (16:15)
[2021-07-01 16:33] LABS: CARBON DIOXIDE,CO2 26.2 mmol/L (21.0-32.0); POTASSIUM,K 3.4 mmol/L (3.5-5.1)
[2021-07-01 16:34] LABS: ESTIMATED GFR 39.3 ml/min
[2021-07-01] MEDS ORDERED: Acetaminophen 325 MG Tab PO PRN (19:57)
[2021-07-01] MEDS: traMADol 50 MG Tab PO PRN (22:22)
[2021-07-01] MEDS ORDERED: Apixaban 5 MG Tab ONE (23:28)
[2021-07-01] MEDS ORDERED: atorvaSTATin 40 MG Tab ONE (23:28)
[2021-07-02] MEDS: Morphine 2 MG/ML SYRINGE IVPUSH PRN (04:00)
[2021-07-02] MEDS: Omeprazole 20 MG Cap.CR PO SCH (06:58)
[2021-07-02 07:09] LABS: POTASSIUM,K 3.6 mmol/L (3.5-5.1)
[2021-07-02 07:12] LABS: ESTIMATED GFR 45.4 ml/min
[2021-07-02] MEDS: traMADol 50 MG Tab PO PRN ×2 (07:15→21:02)
[2021-07-02] MEDS: Aspirin 81 MG Tab.EC PO SCH (08:28)
[2021-07-02] MEDS: Apixaban 5 MG Tab PO SCH ×2 (08:28→21:02)
[2021-07-02] MEDS: Furosemide 20 MG Tab PO SCH (08:29)
[2021-07-02] MEDS: Diltiazem 120 MG Cap.CD PO SCH (08:29)
[2021-07-02] MEDS ORDERED: Lisinopril 10 MG Tab PO SCH (09:00)
[2021-07-02] MEDS: Ondansetron 4 MG/2 ML SDV IVPUSH PRN (11:18)
[2021-07-02] MEDS: atorvaSTATin 40 MG Tab PO SCH (21:02)
[2021-07-03] MEDS: Morphine 2 MG/ML SYRINGE IVPUSH PRN ×3 (02:00→15:36)
[2021-07-03] MEDS: traMADol 50 MG Tab PO PRN ×3 (05:05→21:41)
[2021-07-03 06:31] LABS: CARBON DIOXIDE,CO2 26.4 mmol/L (21.0-32.0); ESTIMATED GFR 19.6 ml/min
[2021-07-03] MEDS: Omeprazole 20 MG Cap.CR PO SCH (06:48)
[2021-07-03] MEDS: Aspirin 81 MG Tab.EC PO SCH (08:03)
[2021-07-03] MEDS: Apixaban 5 MG Tab PO SCH ×2 (08:03→21:24)
[2021-07-03] MEDS: Furosemide 20 MG Tab PO SCH (08:03)
[2021-07-03] MEDS: Diltiazem 120 MG Cap.CD PO SCH (08:04)
[2021-07-03] MEDS ORDERED: Sodium Chloride 0.9% 1,000 ML IV ONE (11:01)
[2021-07-03] MEDS: WIXELA INH SCH ×2 (11:11→21:24)
[2021-07-03] MEDS: atorvaSTATin 40 MG Tab PO SCH (21:26)
[2021-07-03] MEDS: Ondansetron 4 MG/2 ML SDV IVPUSH PRN (23:08)
[2021-07-04 06:11] LABS: CARBON DIOXIDE,CO2 26.3 mmol/L (21.0-32.0); ESTIMATED GFR 21.2 ml/min; POTASSIUM,K 4.1 mmol/L (3.5-5.1)
[2021-07-04] MEDS: traMADol 50 MG Tab PO PRN ×2 (06:40→20:59)
[2021-07-04] MEDS: Omeprazole 20 MG Cap.CR PO SCH (06:40)
[2021-07-04] MEDS ORDERED: Lactated Ringers 1,000 ML IV ONE ×2 (08:12→11:59)
[2021-07-04] MEDS: Lactated Ringers 1,000 ML IV SCH ×2 (08:45→22:45)
[2021-07-04] MEDS: Aspirin 81 MG Tab.EC PO SCH (08:53)
[2021-07-04] MEDS: Apixaban 5 MG Tab PO SCH (08:53)
[2021-07-04] MEDS: WIXELA INH SCH ×2 (08:54→20:38)
[2021-07-04] MEDS: atorvaSTATin 40 MG Tab PO SCH (20:38)
[2021-07-05] MEDS: Lactated Ringers 1,000 ML IV SCH ×3 (02:06→14:23)
[2021-07-05] MEDS: Omeprazole 20 MG Cap.CR PO SCH (06:37)
[2021-07-05 07:12] LABS: ESTIMATED GFR 34.5 ml/min; POTASSIUM,K 4.3 mmol/L (3.5-5.1)
[2021-07-05] MEDS: WIXELA INH SCH ×2 (08:44→21:27)
[2021-07-05] MEDS: Aspirin 81 MG Tab.EC PO SCH (08:52)
[2021-07-05] MEDS: methylPREDNISolone Sodium Succinate 40 MG/1 ML SDV IVPUSH SCH ×2 (09:44→21:25)
[2021-07-05] MEDS ORDERED: Albuterol/Ipratropium 3.0-0.5 MG/3 ML Neb Soln NEB SCH (10:00)
[2021-07-05] MEDS: atorvaSTATin 40 MG Tab PO SCH (21:25)
[2021-07-06] MEDS: Lactated Ringers 1,000 ML IV SCH ×3 (00:48→20:52)
[2021-07-06] MEDS: Omeprazole 20 MG Cap.CR PO SCH (06:39)
[2021-07-06 07:07] LABS: CARBON DIOXIDE,CO2 25.8 mmol/L (21.0-32.0); ESTIMATED GFR 39.3 ml/min; POTASSIUM,K 4.9 mmol/L (3.5-5.1)
[2021-07-06] MEDS: Aspirin 81 MG Tab.EC PO SCH (09:23)
[2021-07-06] MEDS: methylPREDNISolone Sodium Succinate 40 MG/1 ML SDV IVPUSH SCH ×2 (09:24→20:51)
[2021-07-06] MEDS: WIXELA INH SCH ×2 (09:26→20:52)
[2021-07-06] MEDS: Apixaban 5 MG Tab PO SCH ×2 (09:37→20:53)
[2021-07-06] MEDS ORDERED: Nitroglycerin 0.4 MG Tab.SL SL PRN (11:00)
[2021-07-06] MEDS ORDERED: Non-Formulary Medication 1 Each (Albuterol Sulfate 8.5 GM Hfa.Aer.Ad) IH PRN (11:02)
[2021-07-06] MEDS ORDERED: Levofloxacin 750 MG Tab PO SCH (11:15)
[2021-07-06] MEDS: Furosemide 20 MG Tab PO SCH (11:20)
[2021-07-06] MEDS: Albuterol/Ipratropium 3.0-0.5 MG/3 ML Neb Soln NEB PRN (16:59)
[2021-07-06] MEDS: atorvaSTATin 40 MG Tab PO SCH (20:53)
[2021-07-06] MEDS: Ezetimibe 10 MG Tab PO SCH (20:53)
[2021-07-06] MEDS: Fluticasone/Salmeterol 250-50 MCG Inhalation Powder 14/Diskus INH SCH (22:45)
[2021-07-07] MEDS: Albuterol/Ipratropium 3.0-0.5 MG/3 ML Neb Soln NEB PRN ×2 (05:56→08:50)
[2021-07-07 06:01] LABS: CARBON DIOXIDE,CO2 29.1 mmol/L (21.0-32.0); ESTIMATED GFR 49.1 ml/min; POTASSIUM,K 4.3 mmol/L (3.5-5.1)
[2021-07-07] MEDS: Morphine 2 MG/ML SYRINGE IVPUSH PRN ×3 (08:08→23:08)
[2021-07-07] MEDS: Omeprazole 20 MG Cap.CR PO SCH (08:10)
[2021-07-07] MEDS: Aspirin 81 MG Tab.EC PO SCH (08:10)
[2021-07-07] MEDS: Furosemide 20 MG Tab PO SCH (08:10)
[2021-07-07] MEDS: Cholecalciferol (Vitamin D3) 25 MCG Tab PO SCH (08:10)
[2021-07-07] MEDS: Apixaban 5 MG Tab PO SCH ×2 (08:10→21:12)
[2021-07-07] MEDS: WIXELA INH SCH ×2 (08:11→21:11)
[2021-07-07] MEDS: methylPREDNISolone Sodium Succinate 40 MG/1 ML SDV IVPUSH SCH ×3 (08:11→23:11)
[2021-07-07] MEDS ORDERED: Furosemide 20 MG/2 ML VIAL IVPUSH ONE ×2 (09:10→13:19)
[2021-07-07] MEDS: Fluticasone/Salmeterol 250-50 MCG Inhalation Powder 14/Diskus INH SCH (10:11)
[2021-07-07] MEDS: Albuterol/Ipratropium 3.0-0.5 MG/3 ML Neb Soln NEB SCH ×3 (13:26→21:11)
[2021-07-07] MEDS ORDERED: Lactated Ringers 250 ML IV ONE (15:20)
[2021-07-07] MEDS ORDERED: Diltiazem 25 MG/5 ML SDV IVPUSH ONE ×2 (15:44→16:11)
[2021-07-07] MEDS: Piperacillin/Tazobactam 3.375 GM in Sodium Chloride 0.9% 50 ML IV SCH ×2 (16:25→23:13)
[2021-07-07] MEDS: Ezetimibe 10 MG Tab PO SCH (21:10)
[2021-07-07] MEDS: Metoprolol Tartrate 25 MG Tab PO SCH (21:10)
[2021-07-07] MEDS: atorvaSTATin 40 MG Tab PO SCH (21:11)
[2021-07-08] MEDS: Albuterol/Ipratropium 3.0-0.5 MG/3 ML Neb Soln NEB SCH ×6 (01:59→21:45)
[2021-07-08] MEDS: Omeprazole 20 MG Cap.CR PO SCH ×2 (06:12→08:38)
[2021-07-08] MEDS: Piperacillin/Tazobactam 3.375 GM in Sodium Chloride 0.9% 50 ML IV SCH ×3 (06:43→22:49)
[2021-07-08] MEDS: Morphine 2 MG/ML SYRINGE IVPUSH PRN ×2 (06:43→12:00)
[2021-07-08 07:02] LABS: CARBON DIOXIDE,CO2 30.5 mmol/L (21.0-32.0); ESTIMATED GFR 36.8 ml/min; POTASSIUM,K 3.7 mmol/L (3.5-5.1)
[2021-07-08] MEDS: Metoprolol Tartrate 25 MG Tab PO SCH ×2 (08:38→21:10)
[2021-07-08] MEDS: methylPREDNISolone Sodium Succinate 40 MG/1 ML SDV IVPUSH SCH ×2 (08:38→15:48)
[2021-07-08] MEDS: Aspirin 81 MG Tab.EC PO SCH (08:38)
[2021-07-08] MEDS: Cholecalciferol (Vitamin D3) 25 MCG Tab PO SCH (08:38)
[2021-07-08] MEDS: Apixaban 5 MG Tab PO SCH ×2 (08:39→21:10)
[2021-07-08] MEDS ORDERED: Furosemide 40 MG/4 ML VIAL IVPUSH SCH (09:00)
[2021-07-08] MEDS: Fluticasone/Salmeterol 250-50 MCG Inhalation Powder 14/Diskus INH SCH ×2 (09:49→22:49)
[2021-07-08] MEDS: WIXELA INH SCH (09:50)
[2021-07-08] MEDS: Ezetimibe 10 MG Tab PO SCH (21:09)
[2021-07-08] MEDS: atorvaSTATin 40 MG Tab PO SCH (21:09)
[2021-07-09] MEDS: methylPREDNISolone Sodium Succinate 40 MG/1 ML SDV IVPUSH SCH ×2 (00:31→07:44)
[2021-07-09] MEDS: Albuterol/Ipratropium 3.0-0.5 MG/3 ML Neb Soln NEB SCH ×4 (02:36→13:12)
[2021-07-09 06:02] LABS: CARBON DIOXIDE,CO2 31.7 mmol/L (21.0-32.0); ESTIMATED GFR 39.3 ml/min; POTASSIUM,K 3.5 mmol/L (3.5-5.1)
[2021-07-09] MEDS: Piperacillin/Tazobactam 3.375 GM in Sodium Chloride 0.9% 50 ML IV SCH (06:50)
[2021-07-09] MEDS: Omeprazole 20 MG Cap.CR PO SCH (06:51)
[2021-07-09] MEDS ORDERED: Furosemide 20 MG Tab PO SCH (09:00)
[2021-07-09] MEDS: Fluticasone/Salmeterol 250-50 MCG Inhalation Powder 14/Diskus INH SCH (09:44)
[2021-07-09] MEDS: Apixaban 5 MG Tab PO SCH (10:04)
[2021-07-09] MEDS: Metoprolol Tartrate 25 MG Tab PO SCH (10:04)
[2021-07-09] MEDS: Aspirin 81 MG Tab.EC PO SCH (10:05)
[2021-07-09] MEDS: Cholecalciferol (Vitamin D3) 25 MCG Tab PO SCH (10:05)
[2021-07-09] MEDS ORDERED: Azithromycin 250 MG Tab PO SCH ×2 (11:00→12:00)
[2021-07-09] MEDS ORDERED: Furosemide 40 MG/4 ML VIAL IVPUSH ONE (11:10)
[2021-07-09] MEDS ORDERED: Piperacillin/Tazobactam 3.375 GM in Sodium Chloride 0.9% 50 ML IV SCH (13:00)
[2021-07-09 13:05] VITALS: BP 165/62; PULSE 60
== END 2021-07-09 14:45 | DRG 535 ==
LOC: MW.ED 14:37 → MW.MS 16:29 → UNDOADMIN 17:31 → UNDODISIN 07-09 14:45
PROVIDERS: ADMIT Internal Medicine; ATTEND Internal Medicine
DX: S32.591A Other specified fracture of right pubis, initial encounter for closed fracture (principal); J18.9 Pneumonia, unspecified organism; R26.89 Other abnormalities of gait and mobility; N17.9 Acute kidney failure, unspecified; J90 Pleural effusion, not elsewhere classified; S32.9XXA Fracture of unspecified parts of lumbosacral spine and pelvis, initial encounter for closed fracture; R29.6 Repeated falls; I95.9 Hypotension, unspecified; I10 Essential (primary) hypertension; I25.10 Atherosclerotic heart disease of native coronary artery without angina pectoris; I12.9 Hypertensive chronic kidney disease with stage 1 through stage 4 chronic kidney disease, or unspecified chronic kidney disease; Z20.822 Contact with and (suspected) exposure to COVID-19; N18.9 Chronic kidney disease, unspecified; H54.7 Unspecified visual loss; D63.1 Anemia in chronic kidney disease; E78.00 Pure hypercholesterolemia, unspecified; J44.9 Chronic obstructive pulmonary disease, unspecified; G89.29 Other chronic pain; M54.9 Dorsalgia, unspecified; W00.0XXA Fall on same level due to ice and snow, initial encounter; F17.210 Nicotine dependence, cigarettes, uncomplicated; T46.4X5A Adverse effect of angiotensin-converting-enzyme inhibitors, initial encounter; I48.91 Unspecified atrial fibrillation; Z79.82 Long term (current) use of aspirin; Z79.01 Long term (current) use of anticoagulants; Z79.899 Other long term (current) drug therapy; I25.2 Old myocardial infarction; Z79.02 Long term (current) use of antithrombotics/antiplatelets; Z95.5 Presence of coronary angioplasty implant and graft; Z98.890 Other specified postprocedural states
CPT/HCPCS: 36415; 72192; 80053; 85025; 85610; 93005; 99285; A9270; U0002; 36430; 51702; 51798; 71045; 71045-26; 71250; 71250-26; 80048; 81003; 83735; 84100; 85014; 85018; 86850; 86900; 86901; 86920; 93010; 94640; 97110-GP; 97530-GP; 99221; 99231; 99232; 99239; 99284; J1940; J2270; J2405; J2543; J2920; J3370; J3490; J7030; J7050; J7120; J7620-GY; P9016

== ENCOUNTER 2021-10-31 04:05 | Emergency (ER) | payer OTHER ==
[2021-10-31] MEDS ORDERED: Ketorolac 30 MG/ML SDV IM ONE (04:24)
[2021-10-31 06:05] VITALS: BP 142/65; PULSE 70
== END 2021-10-31 05:36 | disposition home or self-care (01) ==
LOC: MW.ED 04:05
DX: M25.512 Pain in left shoulder (principal); G89.29 Other chronic pain; I10 Essential (primary) hypertension; I25.2 Old myocardial infarction; E78.00 Pure hypercholesterolemia, unspecified; I25.10 Atherosclerotic heart disease of native coronary artery without angina pectoris; I48.91 Unspecified atrial fibrillation; Z79.82 Long term (current) use of aspirin; Z79.899 Other long term (current) drug therapy
CPT/HCPCS: 73030; 96372; 99283; J1885

== ENCOUNTER 2021-11-03 03:02 | Inpatient (IN) | payer OTHER ==
[2021-11-03] MEDS ORDERED: Albuterol/Ipratropium 3.0-0.5 MG/3 ML Neb Soln NEB ONE (03:51)
[2021-11-03] MEDS ORDERED: methylPREDNISolone Sodium Succinate 125 MG/2 ML SDV IVPUSH ONE (03:51)
[2021-11-03 04:08] LABS: CORONAVIRUS COVID-19 NAA NEGATIVE (NEGATIVE); INFLUENZA A NAA NEGATIVE (NEGATIVE); INFLUENZA B NAA NEGATIVE (NEGATIVE)
[2021-11-03 04:11] LABS: CARBON DIOXIDE,CO2 30.3 mmol/L (21.0-32.0); POTASSIUM,K 3.4 mmol/L (3.5-5.1)
[2021-11-03] MEDS ORDERED: Azithromycin 500 MG in Sodium Chloride 0.9% 250 ML IV ONE (04:17)
[2021-11-03] MEDS ORDERED: cefTRIAXone 1 GM in Sodium Chloride 0.9% 50 ML IV ONE (04:20)
[2021-11-03] MEDS ORDERED: Albuterol/Ipratropium 3.0-0.5 MG/3 ML Neb Soln NEB SCH (12:00)
[2021-11-03] MEDS ORDERED: Apixaban 5 MG Tab PO SCH ×2 (12:45→12:50)
[2021-11-03] MEDS: Metoprolol Tartrate 25 MG Tab PO SCH ×2 (13:30→21:12)
[2021-11-03] MEDS: Apixaban 5 MG Tab PO SCH ×2 (13:36→21:14)
[2021-11-03] MEDS: Albuterol/Ipratropium 3.0-0.5 MG/3 ML Neb Soln NEB SCH ×2 (17:05→23:26)
[2021-11-03] MEDS: Fluticasone/Salmeterol 250-50 MCG Inhalation Powder 14/Diskus INH SCH (21:11)
[2021-11-03] MEDS: Ezetimibe 10 MG Tab PO SCH (21:17)
[2021-11-03] MEDS: ATORVASTATIN CALCIUM 80 MG PO SCH (21:17)
[2021-11-04] MEDS: Acetaminophen 500 MG Tab PO PRN ×2 (00:35→09:56)
[2021-11-04] MEDS ORDERED: Azithromycin 500 MG Vial IV SCH (05:00)
[2021-11-04] MEDS ORDERED: cefTRIAXone 1 GM in Sodium Chloride 0.9% 50 ML IV SCH (05:00)
[2021-11-04] MEDS: Albuterol/Ipratropium 3.0-0.5 MG/3 ML Neb Soln NEB SCH ×5 (05:18→22:01)
[2021-11-04] MEDS: Azithromycin 500 MG in Sodium Chloride 0.9% 250 ML IV SCH (05:18)
[2021-11-04 07:27] LABS: CARBON DIOXIDE,CO2 26.2 mmol/L (21.0-32.0)
[2021-11-04] MEDS ORDERED: Omeprazole 20 MG Cap.CR PO SCH (07:30)
[2021-11-04] MEDS: Diltiazem 120 MG Cap.CD PO SCH (08:30)
[2021-11-04] MEDS: Potassium Chloride 10 MEQ Tab.ER PO SCH (08:33)
[2021-11-04] MEDS: Apixaban 5 MG Tab PO SCH (08:33)
[2021-11-04] MEDS: Furosemide 40 MG Tab PO SCH (08:33)
[2021-11-04] MEDS: Zinc [Zinc] 50 MG Tablet PO SCH (08:34)
[2021-11-04] MEDS: Fluticasone/Salmeterol 250-50 MCG Inhalation Powder 14/Diskus INH SCH ×2 (08:35→20:05)
[2021-11-04] MEDS ORDERED: Potassium Chloride 20 MEQ Tab.ER PO ONE (08:39)
[2021-11-04] MEDS: Metoprolol Tartrate 25 MG Tab PO SCH ×2 (08:42→20:05)
[2021-11-04] MEDS ORDERED: methylPREDNISolone Sodium Succinate 40 MG/1 ML SDV IVPUSH SCH (09:00)
[2021-11-04] MEDS ORDERED: NS with KCl 40mEq 1,000 ML IV ONE (09:00)
[2021-11-04] MEDS ORDERED: Aspirin 81 MG Tab.EC PO SCH (09:00)
[2021-11-04] MEDS: Pantoprazole 40 MG in Sodium Chloride 0.9% 10 ML IVPUSH SCH (17:17)
[2021-11-04] MEDS: ATORVASTATIN CALCIUM 80 MG PO SCH (20:04)
[2021-11-04] MEDS: Ezetimibe 10 MG Tab PO SCH (20:04)
[2021-11-04] MEDS ORDERED: Hydrocolloid Dressing 4x4 Bandage ONE (20:11)
[2021-11-04] MEDS: methylPREDNISolone Sodium Succinate 40 MG/1 ML SDV IVPUSH SCH (22:15)
[2021-11-04] MEDS ORDERED: Acetaminophen 500 MG Tab PO ONE (22:41)
[2021-11-05] MEDS ORDERED: Piperacillin/Tazobactam 3.375 GM in Sodium Chloride 0.9% 50 ML IV SCH (00:45)
[2021-11-05] MEDS: Albuterol/Ipratropium 3.0-0.5 MG/3 ML Neb Soln NEB SCH ×6 (01:33→22:35)
[2021-11-05] MEDS: Pantoprazole 40 MG in Sodium Chloride 0.9% 10 ML IVPUSH SCH ×2 (03:59→16:01)
[2021-11-05] MEDS: Azithromycin 500 MG in Sodium Chloride 0.9% 250 ML IV SCH (05:18)
[2021-11-05] MEDS: methylPREDNISolone Sodium Succinate 40 MG/1 ML SDV IVPUSH SCH ×3 (06:01→22:35)
[2021-11-05] MEDS ORDERED: Albuterol 0.083% 2.5 MG/3 ML Neb Soln NEB ONE (06:26)
[2021-11-05 07:09] LABS: CARBON DIOXIDE,CO2 25.8 mmol/L (21.0-32.0); POTASSIUM,K 4.1 mmol/L (3.5-5.1)
[2021-11-05] MEDS: Piperacillin/Tazobactam 4.5 GM in Sodium Chloride 0.9% 100 ML IV SCH ×2 (08:05→16:01)
[2021-11-05] MEDS: Metoprolol Tartrate 25 MG Tab PO SCH ×2 (10:10→20:37)
[2021-11-05] MEDS: Zinc [Zinc] 50 MG Tablet PO SCH ×2 (10:11→10:23)
[2021-11-05] MEDS: Fluticasone/Salmeterol 250-50 MCG Inhalation Powder 14/Diskus INH SCH ×2 (10:11→20:38)
[2021-11-05] MEDS: Furosemide 40 MG Tab PO SCH (10:11)
[2021-11-05] MEDS: Diltiazem 120 MG Cap.CD PO SCH (10:11)
[2021-11-05] MEDS: Potassium Chloride 10 MEQ Tab.ER PO SCH ×2 (10:11→10:23)
[2021-11-05] MEDS: Heparin Sodium 5,000 Units/ML Vial SUBCUT SCH (12:12)
[2021-11-05] MEDS: ATORVASTATIN CALCIUM 80 MG PO SCH (20:37)
[2021-11-05] MEDS: Ezetimibe 10 MG Tab PO SCH (20:38)
[2021-11-06] MEDS: Heparin Sodium 5,000 Units/ML Vial SUBCUT SCH ×2 (00:16→11:25)
[2021-11-06] MEDS: Piperacillin/Tazobactam 4.5 GM in Sodium Chloride 0.9% 100 ML IV SCH ×3 (00:20→16:09)
[2021-11-06] MEDS: Albuterol/Ipratropium 3.0-0.5 MG/3 ML Neb Soln NEB SCH ×6 (02:13→21:09)
[2021-11-06] MEDS: Pantoprazole 40 MG in Sodium Chloride 0.9% 10 ML IVPUSH SCH ×2 (03:58→16:08)
[2021-11-06] MEDS ORDERED: Azithromycin 500 MG Vial ONE (05:21)
[2021-11-06] MEDS: Azithromycin 500 MG in Sodium Chloride 0.9% 250 ML IV SCH (05:24)
[2021-11-06] MEDS: methylPREDNISolone Sodium Succinate 40 MG/1 ML SDV IVPUSH SCH ×3 (05:48→21:09)
[2021-11-06 06:49] LABS: POTASSIUM,K 3.1 mmol/L (3.5-5.1)
[2021-11-06] MEDS: Acetaminophen 500 MG Tab PO PRN (06:53)
[2021-11-06] MEDS: Metoprolol Tartrate 25 MG Tab PO SCH ×2 (08:12→21:03)
[2021-11-06] MEDS: Furosemide 40 MG Tab PO SCH (08:13)
[2021-11-06] MEDS: Fluticasone/Salmeterol 250-50 MCG Inhalation Powder 14/Diskus INH SCH ×2 (08:13→21:03)
[2021-11-06] MEDS: Potassium Chloride 10 MEQ Tab.ER PO SCH (08:13)
[2021-11-06] MEDS: Zinc [Zinc] 50 MG Tablet PO SCH (08:13)
[2021-11-06] MEDS: Diltiazem 120 MG Cap.CD PO SCH (08:13)
[2021-11-06] MEDS ORDERED: Potassium Chloride 10 MEQ Tab.ER PO ONE (08:34)
[2021-11-06] MEDS: Docusate Sodium 100 MG Cap PO SCH (09:07)
[2021-11-06] MEDS: Lidocaine 5% 700 MG Patch TRDERM SCH (12:57)
[2021-11-06] MEDS ORDERED: Potassium Chloride 10 MEQ Tab.ER PO SCH (13:00)
[2021-11-06] MEDS: ATORVASTATIN CALCIUM 80 MG PO SCH (21:03)
[2021-11-06] MEDS: Ezetimibe 10 MG Tab PO SCH (21:03)
[2021-11-07] MEDS: Heparin Sodium 5,000 Units/ML Vial SUBCUT SCH ×2 (00:14→12:05)
[2021-11-07] MEDS: [UNRECOGNIZED DRUG - OTHER] TRDERM SCH (00:17)
[2021-11-07] MEDS: Piperacillin/Tazobactam 4.5 GM in Sodium Chloride 0.9% 100 ML IV SCH ×3 (00:17→16:41)
[2021-11-07] MEDS: Albuterol/Ipratropium 3.0-0.5 MG/3 ML Neb Soln NEB SCH ×6 (01:44→22:05)
[2021-11-07] MEDS: Pantoprazole 40 MG in Sodium Chloride 0.9% 10 ML IVPUSH SCH ×2 (03:48→15:36)
[2021-11-07] MEDS: Acetaminophen 500 MG Tab PO PRN (03:59)
[2021-11-07] MEDS ORDERED: Furosemide 40 MG/4 ML VIAL IVPUSH ONE ×2 (05:00→16:00)
[2021-11-07] MEDS: Azithromycin 500 MG in Sodium Chloride 0.9% 250 ML IV SCH (05:12)
[2021-11-07] MEDS: methylPREDNISolone Sodium Succinate 40 MG/1 ML SDV IVPUSH SCH ×3 (05:13→21:16)
[2021-11-07 08:22] LABS: CARBON DIOXIDE,CO2 24.4 mmol/L (21.0-32.0); POTASSIUM,K 3.3 mmol/L (3.5-5.1)
[2021-11-07] MEDS ORDERED: Potassium Chloride 10 MEQ Tab.ER PO ONE (09:11)
[2021-11-07] MEDS: Docusate Sodium 100 MG Cap PO SCH (09:18)
[2021-11-07] MEDS: Fluticasone/Salmeterol 250-50 MCG Inhalation Powder 14/Diskus INH SCH ×2 (09:30→21:15)
[2021-11-07] MEDS: Metoprolol Tartrate 25 MG Tab PO SCH ×2 (09:39→21:15)
[2021-11-07] MEDS: Diltiazem 120 MG Cap.CD PO SCH (09:39)
[2021-11-07] MEDS: Potassium Chloride 10 MEQ Tab.ER PO SCH (09:47)
[2021-11-07] MEDS: Zinc [Zinc] 50 MG Tablet PO SCH (09:47)
[2021-11-07] MEDS: Furosemide 40 MG Tab PO SCH (09:47)
[2021-11-07] MEDS: Lidocaine 5% 700 MG Patch TRDERM SCH (12:06)
[2021-11-07] MEDS ORDERED: Furosemide 20 MG/2 ML VIAL IVPUSH ONE (16:00)
[2021-11-07] MEDS: ATORVASTATIN CALCIUM 80 MG PO SCH (21:14)
[2021-11-07] MEDS: Ezetimibe 10 MG Tab PO SCH (21:14)
[2021-11-08] MEDS: Heparin Sodium 5,000 Units/ML Vial SUBCUT SCH ×3 (00:28→23:01)
[2021-11-08] MEDS: [UNRECOGNIZED DRUG - OTHER] TRDERM SCH ×2 (00:28→23:05)
[2021-11-08] MEDS: Piperacillin/Tazobactam 4.5 GM in Sodium Chloride 0.9% 100 ML IV SCH ×3 (01:07→16:32)
[2021-11-08] MEDS: Albuterol/Ipratropium 3.0-0.5 MG/3 ML Neb Soln NEB SCH ×2 (01:14→05:34)
[2021-11-08] MEDS: Pantoprazole 40 MG in Sodium Chloride 0.9% 10 ML IVPUSH SCH ×2 (04:55→16:32)
[2021-11-08] MEDS: methylPREDNISolone Sodium Succinate 40 MG/1 ML SDV IVPUSH SCH ×2 (05:34→16:32)
[2021-11-08 06:32] LABS: POTASSIUM,K 2.8 mmol/L (3.5-5.1)
[2021-11-08] MEDS ORDERED: Furosemide 20 MG/2 ML VIAL IVPUSH ONE (06:48)
[2021-11-08] MEDS ORDERED: Potassium Chloride 20 MEQ Tab.ER PO ONE (06:51)
[2021-11-08] MEDS ORDERED: Potassium Chloride 10 MEQ Tab.ER PO ONE (07:00)
[2021-11-08] MEDS: Metoprolol Tartrate 25 MG Tab PO SCH ×2 (08:17→20:54)
[2021-11-08] MEDS: Potassium Chloride 20 MEQ in Premix Bag 1 BAG IV SCH ×2 (08:18→11:15)
[2021-11-08] MEDS: Fluticasone/Salmeterol 250-50 MCG Inhalation Powder 14/Diskus INH SCH ×2 (08:27→20:54)
[2021-11-08] MEDS: Diltiazem 120 MG Cap.CD PO SCH (08:27)
[2021-11-08] MEDS: Zinc [Zinc] 50 MG Tablet PO SCH (08:28)
[2021-11-08] MEDS: Furosemide 40 MG Tab PO SCH (08:28)
[2021-11-08] MEDS: Potassium Chloride 10 MEQ Tab.ER PO SCH (08:28)
[2021-11-08] MEDS: Docusate Sodium 100 MG Cap PO SCH (08:29)
[2021-11-08] MEDS ORDERED: methylPREDNISolone Sodium Succinate 40 MG/1 ML SDV IVPUSH SCH (08:45)
[2021-11-08] MEDS: Albuterol/Ipratropium 3.0-0.5 MG/3 ML Neb Soln NEB PRN ×2 (12:32→22:39)
[2021-11-08] MEDS: Lidocaine 5% 700 MG Patch TRDERM SCH (12:32)
[2021-11-08] MEDS: ATORVASTATIN CALCIUM 80 MG PO SCH (20:54)
[2021-11-08] MEDS: Ezetimibe 10 MG Tab PO SCH (20:55)
[2021-11-09] MEDS: Piperacillin/Tazobactam 4.5 GM in Sodium Chloride 0.9% 100 ML IV SCH ×3 (00:14→16:56)
[2021-11-09] MEDS: Albuterol/Ipratropium 3.0-0.5 MG/3 ML Neb Soln NEB PRN ×2 (02:22→09:57)
[2021-11-09] MEDS: Acetaminophen 500 MG Tab PO PRN (03:05)
[2021-11-09] MEDS: methylPREDNISolone Sodium Succinate 40 MG/1 ML SDV IVPUSH SCH ×2 (04:28→16:53)
[2021-11-09] MEDS: Pantoprazole 40 MG in Sodium Chloride 0.9% 10 ML IVPUSH SCH ×2 (04:30→16:51)
[2021-11-09 06:23] LABS: CARBON DIOXIDE,CO2 27.9 mmol/L (21.0-32.0); POTASSIUM,K 3.4 mmol/L (3.5-5.1)
[2021-11-09] MEDS: Metoprolol Tartrate 25 MG Tab PO SCH ×2 (09:05→21:15)
[2021-11-09] MEDS: Docusate Sodium 100 MG Cap PO SCH (09:05)
[2021-11-09] MEDS: Diltiazem 120 MG Cap.CD PO SCH (09:06)
[2021-11-09] MEDS: Fluticasone/Salmeterol 250-50 MCG Inhalation Powder 14/Diskus INH SCH ×2 (09:06→21:15)
[2021-11-09] MEDS: Furosemide 40 MG Tab PO SCH (09:07)
[2021-11-09] MEDS: Potassium Chloride 10 MEQ Tab.ER PO SCH (09:08)
[2021-11-09] MEDS: Zinc [Zinc] 50 MG Tablet PO SCH (09:08)
[2021-11-09] MEDS ORDERED: Furosemide 40 MG/4 ML VIAL IVPUSH ONE (10:50)
[2021-11-09] MEDS ORDERED: Potassium Chloride 20 MEQ Tab.ER PO ONE (10:51)
[2021-11-09] MEDS: Lidocaine 5% 700 MG Patch TRDERM SCH (11:39)
[2021-11-09] MEDS: Heparin Sodium 5,000 Units/ML Vial SUBCUT SCH (11:40)
[2021-11-09] MEDS: Albuterol/Ipratropium 3.0-0.5 MG/3 ML Neb Soln NEB SCH ×3 (18:23→21:15)
[2021-11-09] MEDS: Levofloxacin/Dextrose 5%-Water 750 MG in Premix Bag 1 BAG IV SCH (21:15)
[2021-11-09] MEDS: ATORVASTATIN CALCIUM 80 MG PO SCH (21:16)
[2021-11-09] MEDS: Ezetimibe 10 MG Tab PO SCH (21:16)
[2021-11-10] MEDS: Heparin Sodium 5,000 Units/ML Vial SUBCUT SCH ×2 (00:05→12:06)
[2021-11-10] MEDS: [UNRECOGNIZED DRUG - OTHER] TRDERM SCH (00:06)
[2021-11-10] MEDS ORDERED: Docusate Sodium 100 MG Cap PO PRN (00:49)
[2021-11-10] MEDS: Piperacillin/Tazobactam 3.375 GM in Sodium Chloride 0.9% 50 ML IV SCH ×3 (01:19→16:24)
[2021-11-10] MEDS: Albuterol/Ipratropium 3.0-0.5 MG/3 ML Neb Soln NEB SCH ×6 (01:19→21:16)
[2021-11-10] MEDS: Pantoprazole 40 MG in Sodium Chloride 0.9% 10 ML IVPUSH SCH ×2 (04:30→16:20)
[2021-11-10 06:09] LABS: CARBON DIOXIDE,CO2 31.6 mmol/L (21.0-32.0); POTASSIUM,K 3.5 mmol/L (3.5-5.1)
[2021-11-10] MEDS: methylPREDNISolone Sodium Succinate 40 MG/1 ML SDV IVPUSH SCH (08:29)
[2021-11-10] MEDS: Fluticasone/Salmeterol 250-50 MCG Inhalation Powder 14/Diskus INH SCH ×2 (08:34→21:08)
[2021-11-10] MEDS: Metoprolol Tartrate 25 MG Tab PO SCH ×2 (08:35→21:09)
[2021-11-10] MEDS: Potassium Chloride 10 MEQ Tab.ER PO SCH (08:37)
[2021-11-10] MEDS: Diltiazem 120 MG Cap.CD PO SCH (08:37)
[2021-11-10] MEDS: Zinc [Zinc] 50 MG Tablet PO SCH (08:38)
[2021-11-10] MEDS ORDERED: Furosemide 40 MG/4 ML VIAL IVPUSH ONE (08:46)
[2021-11-10] MEDS: Lidocaine 5% 700 MG Patch TRDERM SCH (12:07)
[2021-11-10] MEDS: ATORVASTATIN CALCIUM 80 MG PO SCH (21:09)
[2021-11-10] MEDS: Ezetimibe 10 MG Tab PO SCH (21:09)
[2021-11-11] MEDS: Piperacillin/Tazobactam 3.375 GM in Sodium Chloride 0.9% 50 ML IV SCH ×4 (00:24→23:56)
[2021-11-11] MEDS: Heparin Sodium 5,000 Units/ML Vial SUBCUT SCH ×3 (00:27→23:54)
[2021-11-11] MEDS: [UNRECOGNIZED DRUG - OTHER] TRDERM SCH ×2 (00:30→23:55)
[2021-11-11] MEDS: Albuterol/Ipratropium 3.0-0.5 MG/3 ML Neb Soln NEB SCH ×6 (02:14→22:11)
[2021-11-11] MEDS: Pantoprazole 40 MG in Sodium Chloride 0.9% 10 ML IVPUSH SCH ×2 (03:41→16:30)
[2021-11-11 06:15] LABS: CARBON DIOXIDE,CO2 31.3 mmol/L (21.0-32.0); POTASSIUM,K 3.4 mmol/L (3.5-5.1)
[2021-11-11] MEDS ORDERED: Potassium Chloride 20 MEQ Tab.ER PO ONE (09:04)
[2021-11-11] MEDS ORDERED: Furosemide 20 MG/2 ML VIAL IVPUSH ONE (09:05)
[2021-11-11] MEDS: methylPREDNISolone Sodium Succinate 40 MG/1 ML SDV IVPUSH SCH (09:28)
[2021-11-11] MEDS: Metoprolol Tartrate 25 MG Tab PO SCH ×2 (09:32→22:07)
[2021-11-11] MEDS: Diltiazem 120 MG Cap.CD PO SCH (09:33)
[2021-11-11] MEDS: Zinc [Zinc] 50 MG Tablet PO SCH (09:33)
[2021-11-11] MEDS: Fluticasone/Salmeterol 250-50 MCG Inhalation Powder 14/Diskus INH SCH ×2 (09:34→22:07)
[2021-11-11] MEDS: Potassium Chloride 10 MEQ Tab.ER PO SCH (10:12)
[2021-11-11] MEDS ORDERED: Lidocaine 2% 5 ML SDV INJECT ONE (11:48)
[2021-11-11] MEDS ORDERED: Lidocaine 2% 5 ML SDV ONE (11:51)
[2021-11-11] MEDS: Lidocaine 5% 700 MG Patch TRDERM SCH (13:31)
[2021-11-11] MEDS: Levofloxacin/Dextrose 5%-Water 750 MG in Premix Bag 1 BAG IV SCH (19:57)
[2021-11-11] MEDS: ATORVASTATIN CALCIUM 80 MG PO SCH (22:09)
[2021-11-11] MEDS: Ezetimibe 10 MG Tab PO SCH (22:10)
[2021-11-12] MEDS: Acetaminophen 500 MG Tab PO PRN ×2 (00:01→07:07)
[2021-11-12] MEDS: Albuterol/Ipratropium 3.0-0.5 MG/3 ML Neb Soln NEB SCH ×6 (01:47→21:43)
[2021-11-12] MEDS: Pantoprazole 40 MG in Sodium Chloride 0.9% 10 ML IVPUSH SCH (03:46)
[2021-11-12 06:14] LABS: CARBON DIOXIDE,CO2 28.1 mmol/L (21.0-32.0); POTASSIUM,K 3.9 mmol/L (3.5-5.1)
[2021-11-12] MEDS: Piperacillin/Tazobactam 3.375 GM in Sodium Chloride 0.9% 50 ML IV SCH ×3 (08:25→20:29)
[2021-11-12] MEDS: Furosemide 40 MG Tab PO SCH (08:31)
[2021-11-12] MEDS: Metoprolol Tartrate 25 MG Tab PO SCH ×2 (08:32→20:32)
[2021-11-12] MEDS: Fluticasone/Salmeterol 250-50 MCG Inhalation Powder 14/Diskus INH SCH ×2 (08:33→20:34)
[2021-11-12] MEDS: methylPREDNISolone Sodium Succinate 40 MG/1 ML SDV IVPUSH SCH (08:33)
[2021-11-12] MEDS: Zinc [Zinc] 50 MG Tablet PO SCH (09:30)
[2021-11-12] MEDS: Potassium Chloride 10 MEQ Tab.ER PO SCH (09:31)
[2021-11-12] MEDS: Diltiazem 120 MG Cap.CD PO SCH (09:31)
[2021-11-12] MEDS: Heparin Sodium 5,000 Units/ML Vial SUBCUT SCH ×2 (11:57→23:18)
[2021-11-12] MEDS: Lidocaine 5% 700 MG Patch TRDERM SCH (11:58)
[2021-11-12] MEDS: ATORVASTATIN CALCIUM 80 MG PO SCH (20:33)
[2021-11-12] MEDS: Ezetimibe 10 MG Tab PO SCH (20:34)
[2021-11-13] MEDS: [UNRECOGNIZED DRUG - OTHER] TRDERM SCH (00:12)
[2021-11-13] MEDS: Albuterol/Ipratropium 3.0-0.5 MG/3 ML Neb Soln NEB SCH ×5 (02:05→17:06)
[2021-11-13] MEDS: Piperacillin/Tazobactam 3.375 GM in Sodium Chloride 0.9% 50 ML IV SCH ×4 (02:08→20:33)
[2021-11-13 05:55] LABS: CARBON DIOXIDE,CO2 28.9 mmol/L (21.0-32.0)
[2021-11-13] MEDS: Pantoprazole 40 MG Tab.CR PO SCH (06:39)
[2021-11-13] MEDS: Metoprolol Tartrate 25 MG Tab PO SCH ×2 (08:00→20:36)
[2021-11-13] MEDS: Furosemide 40 MG Tab PO SCH (08:00)
[2021-11-13] MEDS: Potassium Chloride 10 MEQ Tab.ER PO SCH (08:01)
[2021-11-13] MEDS: Zinc [Zinc] 50 MG Tablet PO SCH (08:02)
[2021-11-13] MEDS: Diltiazem 120 MG Cap.CD PO SCH (08:02)
[2021-11-13] MEDS: Fluticasone/Salmeterol 250-50 MCG Inhalation Powder 14/Diskus INH SCH ×2 (08:03→20:34)
[2021-11-13] MEDS: methylPREDNISolone Sodium Succinate 40 MG/1 ML SDV IVPUSH SCH (08:03)
[2021-11-13] MEDS: Heparin Sodium 5,000 Units/ML Vial SUBCUT SCH (11:34)
[2021-11-13] MEDS: Lidocaine 5% 700 MG Patch TRDERM SCH (11:34)
[2021-11-13] MEDS: ATORVASTATIN CALCIUM 80 MG PO SCH (20:38)
[2021-11-13] MEDS: Ezetimibe 10 MG Tab PO SCH (20:38)
[2021-11-13] MEDS: Levofloxacin/Dextrose 5%-Water 750 MG in Premix Bag 1 BAG IV SCH (21:22)
[2021-11-14] MEDS: Albuterol/Ipratropium 3.0-0.5 MG/3 ML Neb Soln NEB SCH ×4 (00:26→10:33)
[2021-11-14] MEDS: [UNRECOGNIZED DRUG - OTHER] TRDERM SCH (00:27)
[2021-11-14] MEDS: Heparin Sodium 5,000 Units/ML Vial SUBCUT SCH ×2 (00:27→12:25)
[2021-11-14] MEDS: Piperacillin/Tazobactam 3.375 GM in Sodium Chloride 0.9% 50 ML IV SCH ×2 (02:10→07:35)
[2021-11-14] MEDS: Pantoprazole 40 MG Tab.CR PO SCH (06:30)
[2021-11-14] MEDS: Metoprolol Tartrate 25 MG Tab PO SCH (08:00)
[2021-11-14] MEDS: Fluticasone/Salmeterol 250-50 MCG Inhalation Powder 14/Diskus INH SCH (08:00)
[2021-11-14 08:01] VITALS: BP 160/78; PULSE 75
[2021-11-14] MEDS: Zinc [Zinc] 50 MG Tablet PO SCH (08:01)
[2021-11-14] MEDS: Furosemide 40 MG Tab PO SCH (08:01)
[2021-11-14] MEDS: Diltiazem 120 MG Cap.CD PO SCH (08:02)
[2021-11-14] MEDS: Potassium Chloride 10 MEQ Tab.ER PO SCH (08:03)
[2021-11-14] MEDS: methylPREDNISolone Sodium Succinate 40 MG/1 ML SDV IVPUSH SCH (08:03)
[2021-11-14] MEDS: Lidocaine 5% 700 MG Patch TRDERM SCH (12:26)
== END 2021-11-14 14:15 | disposition home or self-care (01) | DRG 193 ==
LOC: MW.ED 03:02 → MW.MS 04:31 → MW.ICU 11-04 11:28 → MW.MS 11-08 17:10
PROVIDERS: ADMIT Internal Medicine; ATTEND Internal Medicine
PROC: 5A09557 Assistance with Respiratory Ventilation, Greater than 96 Consecutive Hours, Continuous Positive Airway Pressure (ICD-10-PCS; principal; 2021-11-03)
PROC: 30233N1 Transfusion of Nonautologous Red Blood Cells into Peripheral Vein, Percutaneous Approach (ICD-10-PCS; 2021-11-03)
DX: J18.9 Pneumonia, unspecified organism (principal); J96.01 Acute respiratory failure with hypoxia; J96.02 Acute respiratory failure with hypercapnia; R09.02 Hypoxemia; J44.0 Chronic obstructive pulmonary disease with (acute) lower respiratory infection; I10 Essential (primary) hypertension; N17.9 Acute kidney failure, unspecified; J44.1 Chronic obstructive pulmonary disease with (acute) exacerbation; I25.10 Atherosclerotic heart disease of native coronary artery without angina pectoris; N18.9 Chronic kidney disease, unspecified; I48.91 Unspecified atrial fibrillation; I12.9 Hypertensive chronic kidney disease with stage 1 through stage 4 chronic kidney disease, or unspecified chronic kidney disease; E78.5 Hyperlipidemia, unspecified; F17.210 Nicotine dependence, cigarettes, uncomplicated; E87.6 Hypokalemia; Z20.822 Contact with and (suspected) exposure to COVID-19; D63.1 Anemia in chronic kidney disease; I44.7 Left bundle-branch block, unspecified; Z95.828 Presence of other vascular implants and grafts; Z87.19 Personal history of other diseases of the digestive system; Z79.01 Long term (current) use of anticoagulants; Z79.82 Long term (current) use of aspirin; Z79.899 Other long term (current) drug therapy; Z79.52 Long term (current) use of systemic steroids; Z95.5 Presence of coronary angioplasty implant and graft; I25.2 Old myocardial infarction; Z98.890 Other specified postprocedural states; Z90.89 Acquired absence of other organs
CPT/HCPCS: 0240U; 36415; 36430; 36600; 51702; 71045; 71250; 80048; 80053; 80202; 81001; 82150; 82272; 82570; 82728; 82803; 82945; 83550; 83605; 83615; 83735; 83986; 84100; 84132; 84157; 84478; 84484; 85025; 85379; 86850; 86900; 86901; 86920; 87040; 89050; 93005; 94640; 94660; 96365; 96368; 96375; 97110; 97112; 97116; 97163; 97530; 99285; 93010; 99221; 99231; 99232; 99239; 99284; A9270-GY; C9113; J0456; J0696; J1644; J1940; J1956; J2543; J2920; J2930; J3370; J3480; J3490; J7050; J7620-GY; P9016

== ENCOUNTER 2021-11-15 16:08 | Emergency (ER) | payer OTHER ==
[2021-11-15 20:22] VITALS: BP 138/81; PULSE 71
== END 2021-11-15 20:23 | disposition home or self-care (01) ==
LOC: MW.ED 16:08
DX: N43.3 Hydrocele, unspecified (principal); I48.91 Unspecified atrial fibrillation; I25.10 Atherosclerotic heart disease of native coronary artery without angina pectoris; E78.00 Pure hypercholesterolemia, unspecified; I10 Essential (primary) hypertension; I25.2 Old myocardial infarction; J44.9 Chronic obstructive pulmonary disease, unspecified; Z95.5 Presence of coronary angioplasty implant and graft; Z20.822 Contact with and (suspected) exposure to COVID-19; Z79.82 Long term (current) use of aspirin; Z79.899 Other long term (current) drug therapy
CPT/HCPCS: 76870; 76870-26; 81001; 93976; 93976-26; 99283; 99284

== ENCOUNTER 2021-11-22 12:18 | Emergency (ER) | payer OTHER ==
[2021-11-22] MEDS ORDERED: Albuterol/Ipratropium 3.0-0.5 MG/3 ML Neb Soln NEB ONE ×2 (12:25→16:30)
[2021-11-22] MEDS ORDERED: Albuterol/Ipratropium 3.0-0.5 MG/3 ML Neb Soln ONE ×2 (12:26→12:27)
[2021-11-22] MEDS ORDERED: methylPREDNISolone Sodium Succinate 40 MG/1 ML SDV IVPUSH ONE (12:43)
[2021-11-22] MEDS ORDERED: Cefepime 2 GM in Premix Bag 1 BAG IV ONE (13:41)
[2021-11-22 13:43] LABS: CARBON DIOXIDE,CO2 28.3 mmol/L (21.0-32.0); POTASSIUM,K 4.1 mmol/L (3.5-5.1)
[2021-11-22] MEDS ORDERED: Aspirin 81 MG Tab.Chew PO ONE (14:51)
[2021-11-22] MEDS ORDERED: Furosemide 40 MG/4 ML VIAL IVPUSH STA (14:51)
[2021-11-22] MEDS ORDERED: Heparin Sodium 5,000 Units/ML Vial IVPUSH STA (15:42)
[2021-11-22] MEDS ORDERED: Heparin Sodium/0.45% NaCl 500 ML IV SCH (15:45)
[2021-11-22 15:48] VITALS: PULSE 100
[2021-11-22 15:49] VITALS: BP 177/95
== END 2021-11-22 18:00 ==
LOC: MW.ED 12:18
DX: J44.1 Chronic obstructive pulmonary disease with (acute) exacerbation (principal); J18.9 Pneumonia, unspecified organism; J96.01 Acute respiratory failure with hypoxia; I21.4 Non-ST elevation (NSTEMI) myocardial infarction; I25.10 Atherosclerotic heart disease of native coronary artery without angina pectoris; I48.91 Unspecified atrial fibrillation; I12.9 Hypertensive chronic kidney disease with stage 1 through stage 4 chronic kidney disease, or unspecified chronic kidney disease; N18.9 Chronic kidney disease, unspecified; I25.2 Old myocardial infarction; Z79.82 Long term (current) use of aspirin; Z79.899 Other long term (current) drug therapy; Z79.01 Long term (current) use of anticoagulants; Z20.822 Contact with and (suspected) exposure to COVID-19
CPT/HCPCS: 36415; 71045; 80053; 83605; 83735; 83880; 84484; 85025; 85610; 85730; 87040; 87635; 93005; 94640; 94660; 96365; 96366; 96367; 96368; 96375; 99291; 99292; A9270; J0692; J1644; J1940; J2920; J3370; J7050; 93010; 99285; J7620-GY; U0002